=== PATIENT | female | born 1975 | race Two or more races ===

== ENCOUNTER → 2020-03-01 16:07 | Outpatient (BNVA) | payer MEDICARE, MEDICAID, SELFPAY | PROVIDERS: PCP Physician Assistant Medical; Referring Provider Physician Assistant Medical; Visit Provider Student in an Organized Health Care Education/Training Program | DX: Z13.89 Encounter for screening for other disorder (principal) | CPT/HCPCS: Q3014 ==

== ENCOUNTER 2020-04-19 11:26 | Outpatient (REF) | payer MEDICARE, MEDICAID, SELFPAY ==
[2020-04-19 12:58] LABS: MANUAL DIFF FLAG NO
[2020-04-19 13:02] LABS: Basophils Percent Auto 0.1 % (0-2); Eosinophils Absolute Auto 0.1 X10*3/uL (0.0-0.4); Eosinophils Percent Auto 1.7 % (0-4); Hematocrit 38.6 % (37-47); Hemoglobin 12.4 g/dl (12.0-16.0); Imm Gran Abs Auto 0.02 X10*3/uL (0.00-0.03); Imm Gran Pct Auto 0.3 % (0.0-0.4); Lymphocytes Absolute Auto 1.8 X10*3/uL (1.2-4.9); Lymphocytes Percent Auto 25.7 % (20-40); Mean Corpuscular HGB Conc 32.1 g/dl (31.0-35.0); Mean Corpuscular Hemoglobin 27.2 pg (27.0-33.0); Mean Corpuscular Volume 84.6 fL (80-98); Mean Platelet Volume 12.3 fL (9.4-12.3); Monocytes Absolute Auto 0.6 X10*3/uL (0.1-1.2); Monocytes Percent Auto 7.8 % (2-11); Neutrophils Absolute Auto 4.5 X10*3/uL (2.0-8.3); Neutrophils Percent Auto 64.4 % (45-73); Platelet Count 229 X10*3/uL (160-400); Red Blood Count 4.56 X10*6/uL (4.20-5.50); White Blood Count 7.1 X10*3/uL (4.8-10.8)
[2020-04-19 13:32] LABS: Alanine Aminotransferase 28 U/L (0-31); Albumin Level 4.5 g/dL (3.5-5.0); Alkaline Phosphatase 92 U/L (39-117); Anion Gap 14 (12-20); Aspartate Amino Transferase 22 U/L (5-31); Bilirubin Total 0.4 mg/dL (0.0-1.0); Blood Urea Nitrogen 10 mg/dL (9-16); Calcium 9.5 mg/dL (8.4-10.2); Carbon Dioxide 24 mmol/L (22-29); Chloride 105 mmol/L (96-108); Cholesterol 203 mg/dL; Estimated Glomerular Filt Rate > 60; Glucose Fasting 86 mg/dL (60-99); HDL Cholesterol 54 mg/dL; LDL Cholesterol Calculated 106 mg/dl; Potassium 4.5 mmol/L (3.3-5.1); Sodium 138 mmol/L (135-145); Total Protein 7.4 g/dL (6.5-8.0); Triglycerides 217 mg/dL
[2020-04-19 13:54] LABS: TSH reflex Free T4 0.99 uIU/mL (0.32-4.0)
[2020-04-23 13:17] LABS: Vitamin D 25-OH, D2 <4 ng/mL; Vitamin D 25-OH, D3 33 ng/mL; Vitamin D 25-OH, Total 33 ng/mL (30-100)
== END 2020-04-19 11:27 | disposition home or self-care (01) ==
LOC: HO.LAB 11:26
PROVIDERS: PCP Internal Medicine; Visit Provider Internal Medicine
DX: E66.9 Obesity, unspecified (principal); E78.5 Hyperlipidemia, unspecified; E55.9 Vitamin D deficiency, unspecified
CPT/HCPCS: 36415; 80053; 80061; 82306; 84443; 85025

== ENCOUNTER 2020-04-26 09:53 | Outpatient (REF) | payer MEDICARE, MEDICAID, SELFPAY ==
--- NOTE | 2020-04-26 09:45 | EMG_ITS ---
HISTORY OF PRESENT ILLNESS: This is a 44-year-old woman with history of bilateral hand pain, right greater than left for many years. CURRENT MEDICATIONS: Diclofenac, montelukast for asthma, and gabapentin. PHYSICAL EXAMINATION: On examination, she is alert and oriented with normal intellectual functions. Cranial nerves II through XII are normal. Muscle tone and strength are normal in all 4 extremities. Deep tendon reflexes symmetrical. Plantar responses are flexor. No Tinel or Phalen sign. IMPRESSION: Rule out carpal tunnel syndrome. Nerve conduction EMG study: Normal electrodiagnostic study of both upper extremities with no evidence of nerve entrapment or carpal tunnel syndrome. Normal EMG of the right C5 through T1 innervated muscles. MD SOLANGE Krueger/MARY / [id number]
== END 2020-04-26 09:54 | disposition home or self-care (01) ==
LOC: HO.NEURO 09:53
PROVIDERS: Visit Provider Student in an Organized Health Care Education/Training Program
DX: G56.03 Carpal tunnel syndrome, bilateral upper limbs (principal)
CPT/HCPCS: 95885; 95913

== ENCOUNTER → 2020-08-29 15:02 | Outpatient (BNVA) | payer MEDICARE, MEDICAID, SELFPAY | PROVIDERS: PCP Physician Assistant Medical; Visit Provider Student in an Organized Health Care Education/Training Program | DX: M19.041 Primary osteoarthritis, right hand (principal); M19.042 Primary osteoarthritis, left hand; G56.03 Carpal tunnel syndrome, bilateral upper limbs; M79.7 Fibromyalgia; Z87.891 Personal history of nicotine dependence; Z79.899 Other long term (current) drug therapy | CPT/HCPCS: 99212 ==

== ENCOUNTER 2020-10-05 09:00 | Outpatient (RCR) | payer MEDICARE, MEDICAID, SELFPAY ==
--- NOTE | 2020-09-07 15:54 | MHC.OT.OEV ---
[address] [phone] F: [phone] Occupational Therapy Evaluation Diagnosis: B/L HAND OSTEOARTHRTIS Date of Onset: 02/25/12 Attending Provider: Arlet Groves Prescribed Treatment: EVAL AND TREAT History of Current Condition: REPORTS PAIN IN HER RIGHT CMC JOINT, WELL HER LEFT D2/D3 DIP JOINTS. SHE STATES THAT BOTH HANDS BECOME SWOLLEN AT NIGHT AND INCREASED PARASTHESIA IN THE MORNING. Nerve conduction study of bilateral upper extremities were unremarkable. 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 Sleep: INCONSISTENTLY WEARING NIGHT SPLINTS AT NIGHT, SEVERE DIFFICULTIES DUE TO HAND PAIN Driving: PAIN WITH TURNING WHEEL, INCONSISTENTLY WEARING SPLINTS WHEN AT WORK Pain Assessment Pain Score: 3-8/10 Pain Scale Used: Numeric (0 - 10) Pain Location and Description: 8/10 R CMC AT REST, 10/10 WITH ACTIVITY 3/10 L D2/D3 DIPj AT REST, 8/10 PALPATION TO DIPj Aggravating Factors: GRIPPING, SQUEEZING Alleviating Factors: GABAPENTON, HAS NOT USED HEAT/ICE, SPLINTS OCCASIONALLY HELP, DICOFLENAC Skin and Soft Tissue Assessment Skin and Soft Tissue: Swelling Comments: HEBERDEN'S NODES L D2/D3; HYPEREXTENSION OF PIPj OF L D3/D4, SWAN NECK POSTURING OF L D2/D3 ARTIFICIAL NAILS Sensory Assessment Temperature: Light Touch: Proprioception: Vibration: Comments: REPORTS NUMBNESS, PINS AND NEEDLES THROUGH WHOLE HAND AND RADIAL FOREARM DISTRIBUTION Dexterity Assessment Dexterity: Comments: FUNCTIONAL DEXTERITY TEST: RIGHT: 24 SECONDS (FUNCTIONAL) ; LEFT: 30 SECONDS (MODERATELY FUNCTIONAL) Special Tests Comments: AROM(PROM) Strength Wrist Flexion: R 58, L 60 Extension: R 60, L 72 Ulnar Deviation: Radial Deviation: Comments: Flexion: Extension: Ulnar Deviation: Radial Deviation: Comments: Thumb Thumb CMC Flexion: Thumb MCP Flexion: R 60, L 82 Thumb IP Flexion: R 50, L 42 Radial Abduction: Palmar Abduction: [place] (K[place]andji 0-10): 9 Comments: Digits Index MCP: PIP: L 94, R 89 DIP: L 2/20 Long MCP: PIP: L 84, R 84 DIP: L 4/26 Ring MCP: PIP: L 82, R 90 DIP: Small MCP: PIP: DIP: Comments: heberden's nodes D2/D3 L HAND Gross Grasp: R 20, L 28 POUNDS Lateral Pinch: L 8, R 9 Two-Point Pinch: L 3, R 4 Three-Jaw Leland: L 4, R 4 Comments: PAIN IN R THUMB WITH GRIPPING Patient Education Primary Language: Ict Educator Required: No Current Knowledge: Understands information with skills for self-management Teaching Method: Demonstration Handouts Education Needs Identified on Evaluation: ADL's Disease Information Equipment Use Exercise Pain Safety How did patient/family demonstrate learning? Patient demonstrates Patient verbalizes Barriers to Learning: None Readiness for Learning: Accepting Who was educated? Patient Comments: Plan of Care Assessment: MARCI REPORTS DX OF OSTEOARTHRITIS IN 2013. HAS PREVIOUSLY ATTENDED OUTPATIENT OT, MOST RECENTLY IN 2018. SHE HAS B/L HAND SPLINTS THAT SHE OCCASIONALLY WEARS AT NIGHT AND AT WORK. SHE STATES HER PAIN IS GREATEST IN HER RIGHT CMC JOINT, AND LEFT D2/D3 DIPj. 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 SHE REPORTS SOME ASSIST AT HOME WITH OPENING TIGHT JARS AND IADLs, YET WOULD LIKE TO HAVE LESS PAIN WHEN PARTICIPATING IN MEANINGFUL TASKS. SHE REPORTS A 83% LIMITATION PER THE QUICK DASH ASSESSMENT. ONGOING SKILLED OT TO PROVIDE PATIENT EDUCATION, JOINT PROTECTION STRATEGIES, AND IMPROVE QOL. STG Duration: 2 WEEKS Short Term Goals: IND USE OF HEAT, INCLUDING HOME PARAFFIN UNIT IND HEP WILL DEMO GOOD JOINT PROTECTION WITH HOME AND WORK RELATED TASKS IND COMPLIANCE WITH ORTHOSIS' LTG Duration: 4 WEEKS Photo Graphics Librarian Goals: INCREASE B/L HAND STRENGTH BY 10 POUNDS IND POSTURING OF DIGITS APPROPRIATELY DURING DAILY ACTIVITIES REPORT <6/10 PAIN IN R THUMB WITH IADLs IND PROGRESSION OF HEP QUICK DASH <70% Frequency and Duration: The patient will be seen 2X/WEEK FOR 4 WEEKS Treatment Plan: Therapeutic Exercise Therapeutic Activity Home Exercise Program Splinting Neuro Re-ed Patient Education Desensitization/Sensory Re-ed Edema Control ADL Training Ultrasound NMES Iontophoresis Paraffin Fluidotherapy MHP Cold Packs Joint Mobilization Soft Tissue Mobilization Kinesiotaping Other (see comments) Electronically Signed By: LEFTY CORONA OTR/L Reviewed/agree with student documentation: N/A Therapist: Please sign and return to therapist, Thank you for your referral.
--- NOTE | 2020-10-05 11:04 | MHC.OT.DC ---
[address] [phone] F: [phone] Occupational Therapy Discharge Note Provider: Arlet Groves Diagnosis: B/L HAND OSTEOARTHRTIS Date of Evaluation: 09/07/20 Date of Discharge: 10/05/20 Treatments to Date: 7 Discharge Status: Achieved Goals Improved Function Independent with HEP Discharge Summary: Amelie was seen for OT eval and treatments. She demonstrated good follow through w/ HEP, orthosis wear and joint protection. Low pain overall and able to self manage at this time. No further OT services warranted at this time. Electronically Signed By: LEFTY CORONA OTR/Chau Reviewed/agree with student documentation: N/A Therapist: Please Sign and return to therapist, thank you for your referral.
== END 2020-10-05 11:00 | disposition home or self-care (01) ==
LOC: HO.OT 09:00
PROVIDERS: PCP Internal Medicine; Visit Provider Student in an Organized Health Care Education/Training Program
DX: M19.041 Primary osteoarthritis, right hand (principal); M19.042 Primary osteoarthritis, left hand
CPT/HCPCS: 29130; 97018; 97035; 97110; 97166; 97760

== ENCOUNTER 2020-11-20 11:32 | Outpatient (REF) | payer MEDICARE, MEDICAID, SELFPAY ==
[2020-11-20 15:44] LABS: MANUAL DIFF FLAG NO
[2020-11-20 16:01] LABS: Basophils Percent Auto 0.3 % (0-2); Eosinophils Absolute Auto 0.2 X10*3/uL (0.0-0.4); Eosinophils Percent Auto 1.9 % (0-4); Hematocrit 37.2 % (37-47); Hemoglobin 12.3 g/dl (12.0-16.0); Imm Gran Abs Auto 0.05 X10*3/uL (0.00-0.03); Imm Gran Pct Auto 0.6 % (0.0-0.4); Lymphocytes Percent Auto 21.9 % (20-40); Mean Corpuscular HGB Conc 33.1 g/dl (31.0-35.0); Mean Corpuscular Hemoglobin 29.1 pg (27.0-33.0); Mean Corpuscular Volume 87.9 fL (80-98); Mean Platelet Volume 11.9 fL (9.4-12.3); Monocytes Absolute Auto 0.7 X10*3/uL (0.1-1.2); Neutrophils Percent Auto 67.3 % (45-73); Platelet Count 235 X10*3/uL (160-400); Red Blood Count 4.23 X10*6/uL (4.20-5.50); Red Cell Distribution Width 14.1 % (11.0-16.0); White Blood Count 8.9 X10*3/uL (4.8-10.8)
== END 2020-11-20 11:33 | disposition home or self-care (01) ==
LOC: CF 11:32
PROVIDERS: PCP Internal Medicine; Referring Provider Internal Medicine; Visit Provider Physician Assistant
DX: R10.9 Unspecified abdominal pain (principal); K57.30 Diverticulosis of large intestine without perforation or abscess without bleeding
CPT/HCPCS: 36415; 85025; 99202

== ENCOUNTER 2020-12-21 09:54 | Outpatient (REF) | payer MEDICARE, MEDICAID, SELFPAY ==
--- NOTE | ~2020-12-21 | XR_ITS ---
EXAMINATION: XR HAND, RIGHT CLINICAL INFORMATION: Primary osteoarthritis of the right hand COMPARISON: None TECHNIQUE: PA, lateral, and oblique views of the right hand. FINDINGS: No fracture or dislocation. Alignment is anatomic. There is joint space narrowing at the second and third digit distal interphalangeal joints. Marginal osteophytes are scattered throughout the interphalangeal joints. No osseous erosion. Degenerative change of the first carpometacarpal joint with osteophyte formation. The soft tissues are unremarkable. XR/XR hand RT min 3V IMPRESSION: Degenerative changes throughout the hand which are mostly mild. Moderate degenerative change at the third distal interphalangeal joint with joint space narrowing.
== END 2020-12-21 09:55 | disposition home or self-care (01) ==
LOC: HO.XRAY 09:54
PROVIDERS: PCP Internal Medicine; Visit Provider Nurse Practitioner Family
DX: M19.041 Primary osteoarthritis, right hand (principal); M19.042 Primary osteoarthritis, left hand
CPT/HCPCS: 73130; 99212

== ENCOUNTER 2021-02-25 07:47 | Outpatient (REF) | payer MEDICARE, MEDICAID, SELFPAY ==
[2021-02-25 08:47] LABS: Binax Internal Control QC Valid; Binax Now Covid-19 Ag Positive (Negative)
[2021-02-25 08:48] LABS: Binax Lot number: 9864
== END 2021-02-25 07:48 | disposition home or self-care (01) ==
LOC: HO.LAB 07:47
PROVIDERS: PCP Internal Medicine; Visit Provider Internal Medicine
DX: Z20.822 Contact with and (suspected) exposure to COVID-19 (principal)
CPT/HCPCS: 36415; C9803

== ENCOUNTER → 2021-04-12 11:24 | Outpatient (BNVA) | payer MEDICARE, MEDICAID, SELFPAY | PROVIDERS: PCP Internal Medicine; Referring Provider Internal Medicine; Visit Provider Physician Assistant | DX: K92.89 Other specified diseases of the digestive system (principal); R10.9 Unspecified abdominal pain | CPT/HCPCS: 99212 ==

== ENCOUNTER 2021-05-22 12:16 | Outpatient (REF) | payer MEDICARE, MEDICAID, SELFPAY ==
[2021-05-22 13:49] LABS: Alanine Aminotransferase 23 U/L (0-31); Albumin Level 4.2 g/dL (3.5-5.0); Alkaline Phosphatase 87 U/L (39-117); Anion Gap 12 (12-20); Aspartate Amino Transferase 18 U/L (5-31); Bilirubin Total 0.4 mg/dL (0.0-1.0); Blood Urea Nitrogen 15 mg/dL (9-16); Calcium 9.7 mg/dL (8.4-10.2); Carbon Dioxide 26 mmol/L (22-29); Chloride 105 mmol/L (96-108); Cholesterol 197 mg/dL; Estimated Glomerular Filt Rate > 60; Glucose Fasting 87 mg/dL (60-99); HDL Cholesterol 46 mg/dL; LDL Cholesterol Calculated 89 mg/dl; Potassium 4.4 mmol/L (3.3-5.1); Sodium 139 mmol/L (135-145); Total Protein 7.1 g/dL (6.5-8.0); Triglycerides 314 mg/dL
[2021-05-22 14:02] LABS: Appearance Urine CLEAR; Color Urine YELLOW; Glucose Urine UA NEG (NEG); Leukocyte Esterase Urine NEG (NEG); Nitrite Urine NEG (NEG); Specific Gravity - Urine 1.015 (1.005-1.025); UACC Culture Trigger NO; Urine Blood 3+ (NEG); Urine Ketones NEG (NEG); Urine Protein NEG (NEG-TRACE)
[2021-05-22 14:10] LABS: Bacteria Urine TRACE /LPF; Squamous Epithelial Cell Urine 3+ /LPF; WBC Urine 0-2 /HPF (0-4)
[2021-05-27 12:51] LABS: Vitamin D 25-OH, D2 <4 ng/mL; Vitamin D 25-OH, D3 32 ng/mL; Vitamin D 25-OH, Total 32 ng/mL (30-100)
== END 2021-05-22 12:17 | disposition home or self-care (01) ==
LOC: HO.LAB 12:16
PROVIDERS: PCP Internal Medicine; Visit Provider Internal Medicine
DX: M19.041 Primary osteoarthritis, right hand (principal); M19.042 Primary osteoarthritis, left hand; E78.5 Hyperlipidemia, unspecified; R30.0 Dysuria; E55.9 Vitamin D deficiency, unspecified
CPT/HCPCS: 36415; 80053; 80061; 81001; 81003; 82306

== ENCOUNTER 2021-06-14 10:35 | Outpatient (REF) | payer MEDICARE, MEDICAID, SELFPAY ==
--- NOTE | ~2021-06-14 | US_ITS ---
EXAMINATION: US RETROPERITONEAL LIMITED (RENAL ONLY) CLINICAL INFORMATION: Calculus of kidney. COMPARISON: None TECHNIQUE: Real-time imaging of the kidneys. FINDINGS: RIGHT KIDNEY: 11.9 x 5.4 x 4.0 cm (SAG x AP x TRV). The kidney is normal in size, contour, and echogenicity. Renal cortical thickness is normal. No focal parenchymal lesions or hydronephrosis. There is a 0.3 x 0.2 cm echogenic focus without any acoustic shadowing present at the mid pole, may represent calcification versus nonobstructing subtle calculus. LEFT KIDNEY: 13.3 x 5.3 x 4.1 cm (SAG x AP x TRV). The kidney is normal in size, contour, and echogenicity. Renal cortical thickness is normal. No focal parenchymal lesions or hydronephrosis. The 0.2 x 0.1 cm echogenic focus without acoustic shadowing is noted at the mid pole, may represent calcification versus nonobstructing calculus. US/US renal BI IMPRESSION: 1. Bilateral normal-sized kidneys without evidence of any hydronephrosis. 2. Sub-5 mm echogenic focus without acoustic shadowing is noted, one on each side near the mid pole, as described above, may represent calcification versus nonobstructing solitary calculus.
== END 2021-06-14 10:36 | disposition home or self-care (01) ==
LOC: HO.US 10:35
PROVIDERS: Visit Provider Internal Medicine
DX: N20.0 Calculus of kidney (principal)
CPT/HCPCS: 76775

== ENCOUNTER → 2021-07-06 10:56 | Outpatient (BNVA) | payer MEDICARE, MEDICAID, SELFPAY | PROVIDERS: PCP Internal Medicine | DX: N20.0 Calculus of kidney (principal) | CPT/HCPCS: 99202 ==

== ENCOUNTER 2021-11-06 09:43 | Outpatient (REF) | payer MEDICARE, MEDICAID, SELFPAY ==
--- NOTE | ~2021-11-06 | US_ITS ---
EXAMINATION: US RETROPERITONEAL LIMITED (RENAL ONLY) CLINICAL INFORMATION: Calculus of kidney. COMPARISON: Renal ultrasound 06/14/2021. TECHNIQUE: Real-time imaging of the kidneys. FINDINGS: RIGHT KIDNEY: 11.8 x 4.7 x 4.5 cm (SAG x AP x TRV). The kidney is normal in size, contour, and echogenicity. Renal cortical thickness is normal. No calculi or focal parenchymal lesions. No hydronephrosis. LEFT KIDNEY: 13.0 x 5.0 x 4.2 cm (SAG x AP x TRV). The kidney is normal in size, contour, and echogenicity. Renal cortical thickness is normal. There is a 2 mm echogenic density in the midpole with twinkle artifact suggestive of a small stone. No focal parenchymal lesions or hydronephrosis. US/US renal BI IMPRESSION: Small left renal stone. Normal right kidney.
== END 2021-11-06 09:44 | disposition home or self-care (01) ==
LOC: HO.US 09:43
DX: N20.0 Calculus of kidney (principal)
CPT/HCPCS: 76775

== ENCOUNTER 2021-11-20 12:00 | Outpatient (REF) | payer MEDICARE, MEDICAID, SELFPAY ==
[2021-11-20 14:39] LABS: C Reactive Protein 0.41 mg/dL (< or = 0.50); Rheumatoid Factor < 15.0 IU/mL (<15.0)
[2021-11-20 15:12] LABS: Erythrocyte Sedimentation Rate 7 MM/HR (0-20)
[2021-11-23 17:57] LABS: Cyclic Citrullinated Peptide <16 UNITS
== END 2021-11-20 12:01 | disposition home or self-care (01) ==
LOC: HO.10HDL 12:00
PROVIDERS: Visit Provider Nurse Practitioner Family
DX: M19.041 Primary osteoarthritis, right hand (principal); M19.042 Primary osteoarthritis, left hand; M79.18 Myalgia, other site
CPT/HCPCS: 36415; 85652; 86140; 86200; 86431; 99212

== ENCOUNTER 2021-11-21 11:15 | Outpatient (REF) | payer MEDICARE, MEDICAID, SELFPAY ==
--- NOTE | ~2021-11-21 | XR_ITS ---
EXAMINATION: XR SACROILIAC JOINTS CLINICAL INFORMATION: Left buttock pain COMPARISON: 03/02/2015 TECHNIQUE: 3 views of the sacroiliac joints FINDINGS: No fracture or malalignment. The sacroiliac joints are symmetric. Symmetric spacing. No fusion. No sclerosis. The sacrum appears intact. Normal bowel gas pattern. The hips are well aligned. XR/XR sacroiliac joint min 3V IMPRESSION: Normal sacroiliac joints.
--- NOTE | ~2021-11-21 | XR_ITS ---
EXAMINATION: XR HAND, LEFT XR HAND, RIGHT CLINICAL INFORMATION: Hand pain COMPARISON: 12/21/2020 TECHNIQUE: 3 views of each hand FINDINGS: Left hand: No acute fracture or dislocation. Narrowing of the joint space at the second and third digit distal interphalangeal joints. Gull wing appearance with erosion at the third distal interphalangeal joint. Mild soft tissue swelling at these joints. Right hand: No fracture or dislocation. Joint space narrowing with: Gull wing appearance at the third digit distal interphalangeal joint, progressed from prior. Mild soft tissue swelling. XR/XR hand RT min 3V IMPRESSION: Findings suggestive of erosive osteoarthritis in the left hand at the second and third digit distal interphalangeal joints and in the right hand third digit distal interphalangeal joint.
--- NOTE | ~2021-11-21 | XR_ITS ---
EXAMINATION: XR HAND, LEFT XR HAND, RIGHT CLINICAL INFORMATION: Hand pain COMPARISON: 12/21/2020 TECHNIQUE: 3 views of each hand FINDINGS: Left hand: No acute fracture or dislocation. Narrowing of the joint space at the second and third digit distal interphalangeal joints. Gull wing appearance with erosion at the third distal interphalangeal joint. Mild soft tissue swelling at these joints. Right hand: No fracture or dislocation. Joint space narrowing with: Gull wing appearance at the third digit distal interphalangeal joint, progressed from prior. Mild soft tissue swelling. XR/XR hand LT min 3V IMPRESSION: Findings suggestive of erosive osteoarthritis in the left hand at the second and third digit distal interphalangeal joints and in the right hand third digit distal interphalangeal joint.
== END 2021-11-21 11:16 | disposition home or self-care (01) ==
LOC: HO.XRAY 11:15
PROVIDERS: PCP Internal Medicine; Visit Provider Nurse Practitioner Family
DX: M79.641 Pain in right hand (principal); M79.642 Pain in left hand; M79.18 Myalgia, other site
CPT/HCPCS: 72202; 73130

== ENCOUNTER → 2022-02-21 11:47 | Outpatient (BNVA) | payer MEDICARE, MEDICAID, SELFPAY | PROVIDERS: PCP Internal Medicine; Visit Provider Nurse Practitioner Family | DX: M79.18 Myalgia, other site (principal); M15.4 Erosive (osteo)arthritis | CPT/HCPCS: 99212 ==

== ENCOUNTER 2022-04-03 10:00 | Outpatient (RCR) | payer MEDICARE, MEDICAID, SELFPAY ==
--- NOTE | 2022-04-03 10:58 | MHC.OT.DC ---
[address] [phone] F: [phone] Occupational Therapy Discharge Note Provider: Tejal Roman Diagnosis: Erosive Osteoarthritis bilateral hands Date of Surgery: Date of Evaluation: 03/18/22 Date of Discharge: 04/03/22 Treatments to Date: 5 Cancellations to Date: 0 No Shows to Date: 0 Discharge Status: Achieved Goals Improved Function Independent with HEP Discharge Summary: Good improvement in pain on left hand and in right DIP jts. Pt with continued pain at right CMC jt > left , both improved with wearing custom hand based CMCj orthosis Pt is independent with her HEP and is improving on implementing jt protection techniques with daily activities. Polo reports using her night splint for CTS sx Supervisor Corduroy Cutting R 20 lb from 15 lb L 30 lb Quick DASH 50 pts from 90 pts . Right CMCjt pain limiting heavy work with right hand. Shoulder pain limiting washing her back. Report night hand paresthesia. Electronically Signed By: Breonna Madison OT CHT CLT Reviewed/agree with student documentation: Therapist: Please Sign and return to therapist, thank you for your referral.
== END 2022-04-03 10:59 | disposition home or self-care (01) ==
LOC: HO.OT 10:00
PROVIDERS: PCP Internal Medicine; Visit Provider Nurse Practitioner Family
DX: M15.4 Erosive (osteo)arthritis (principal)
CPT/HCPCS: 29130; 97035; 97110; 97166; 97535; 97760

== ENCOUNTER 2022-04-29 09:45 | Outpatient (REF) | payer MEDICARE, MEDICAID, SELFPAY ==
[2022-04-29 11:05] LABS: MANUAL DIFF FLAG NO
[2022-04-29 12:06] LABS: Basophils Percent Auto 0.3 % (0-2); Eosinophils Absolute Auto 0.3 X10*3/uL (0.0-0.4); Eosinophils Percent Auto 2.5 % (0-4); Hemoglobin 13.4 g/dl (12.0-16.0); Imm Gran Abs Auto 0.11 X10*3/uL (0.00-0.03); Imm Gran Pct Auto 1.1 % (0.0-0.4); Lymphocytes Absolute Auto 2.3 X10*3/uL (1.2-4.9); Lymphocytes Percent Auto 23.4 % (20-40); Mean Corpuscular HGB Conc 33.5 g/dl (31.0-35.0); Mean Corpuscular Hemoglobin 29.9 pg (27.0-33.0); Mean Corpuscular Volume 89.3 fL (80.0-98.0); Mean Platelet Volume 11.6 fL (9.4-12.3); Monocytes Absolute Auto 0.7 X10*3/uL (0.1-1.2); Monocytes Percent Auto 6.8 % (2-11); Neutrophils Absolute Auto 6.5 x10*3/uL (2.0-8.3); Neutrophils Percent Auto 65.9 % (45-73); Platelet Count 256 X10*3/uL (160-400); Red Blood Count 4.48 X10*6/uL (4.20-5.50); Red Cell Distribution Width 13.2 % (11.0-16.0); White Blood Count 9.9 X10*3/uL (4.8-10.8)
== END 2022-04-29 09:46 | disposition home or self-care (01) ==
LOC: HO.LAB 09:45
PROVIDERS: PCP Internal Medicine; Referring Provider Internal Medicine; Visit Provider Physician Assistant
DX: K52.9 Noninfective gastroenteritis and colitis, unspecified (principal); K57.30 Diverticulosis of large intestine without perforation or abscess without bleeding; R10.9 Unspecified abdominal pain; G89.29 Other chronic pain; Z79.899 Other long term (current) drug therapy
CPT/HCPCS: 36415; 85025; 99212

== ENCOUNTER 2022-06-12 11:00 | Outpatient (RCR) | payer MEDICARE, MEDICAID, SELFPAY ==
--- NOTE | 2022-05-01 12:05 | MHC.PT.EP ---
[facility] [place] Office [place] [facility] [place] [facility] [address] Deon Carbajal [address] [phone] F: [phone] F: [phone] F: [phone] F: [phone] Physical Therapy Plan of Care Date of Evaluation: Date of Surgery: N/A Diagnosis: Low back pain, unspecified Assessment: Pt is a pleasant 46yo F who presents to PT with low back pain. She presents to PT with current impairments in pain, decreased lumbar ROM, decrease core stabilization, decreased hip/glute strength, soft tissue restrictions and impaired posture. 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 She is an excellent candidate for skilled PT in order to address current impairments to facilitate return to PLOF. She is recommended to be seen 2x/week for 4 weeks and will be reassessed at that time. 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 Manual therapy to restore motion and function. Therapeutic exercise to improve strength and flexibility. Neuromuscular re-education for posture and balance. Therapeutic activities to return to functional activities of daily living. Electronically signed by: Meryl Reynolds, PT, DPT Please sign and return to therapist. Thank you for your referral.
--- NOTE | 2022-06-12 13:43 | MHC.PT.DC ---
[facility] [place] Office [place] [facility] [place] [facility] [address] Deon Carbajal [address] [phone] F: [phone] F: [phone] F: [phone] F: [phone] Physical Therapy Discharge Report Diagnosis: Low back pain, unspecified Date of Surgery: N/A Date of Evaluation: 05/01/22 Date of Discharge: 06/12/22 Treatments to Date: 10 Cancellations to Date: 0 No Shows to Date: 0 Discharge Status: Achieved Goals Improved Function Independent with HEP Discharge Summary: Pt has made good progress since SOC. She has met her STGs and made good progress toward her LTGs. She consistently has minimal to no discomfort throughout her back. She is I with HEP and performs with good body mechanics. Pt is being D/C from skilled PT at this time. She has printed copy of HEP and thera bands. Pt reports no further questions or concerns for PT at this time. Electronically signed by: Meryl Reynolds, PT, DPT Please sign and return to therapist. Thank you for your referral.
== END 2022-06-12 13:46 | disposition home or self-care (01) ==
LOC: HO.PT 11:00
PROVIDERS: PCP Internal Medicine; Visit Provider Nurse Practitioner Family
DX: M54.50 Low back pain, unspecified (principal)
CPT/HCPCS: 97110; 97161

== ENCOUNTER 2022-06-29 09:51 | Outpatient (REF) | payer MEDICARE, MEDICAID, SELFPAY ==
[2022-06-29 10:03] LABS: MANUAL DIFF FLAG NO
[2022-06-29 10:31] LABS: Basophils Absolute Auto 0.1 X10*3/uL (0.0-0.2); Basophils Percent Auto 0.5 % (0-2); Eosinophils Absolute Auto 0.4 X10*3/uL (0.0-0.4); Eosinophils Percent Auto 3.5 % (0-4); Hematocrit 41.7 % (37.0-47.0); Imm Gran Abs Auto 0.06 X10*3/uL (0.00-0.03); Imm Gran Pct Auto 0.6 % (0.0-0.4); Lymphocytes Absolute Auto 1.7 X10*3/uL (1.2-4.9); Lymphocytes Percent Auto 16.5 % (20-40); Mean Corpuscular HGB Conc 33.6 g/dl (31.0-35.0); Mean Corpuscular Hemoglobin 30.2 pg (27.0-33.0); Mean Corpuscular Volume 90.1 fL (80.0-98.0); Mean Platelet Volume 11.7 fL (9.4-12.3); Monocytes Absolute Auto 0.8 X10*3/uL (0.1-1.2); Monocytes Percent Auto 7.6 % (2-11); Neutrophils Absolute Auto 7.5 x10*3/uL (2.0-8.3); Neutrophils Percent Auto 71.3 % (45-73); Platelet Count 234 X10*3/uL (160-400); Red Blood Count 4.63 X10*6/uL (4.20-5.50); Red Cell Distribution Width 13.5 % (11.0-16.0); White Blood Count 10.5 X10*3/uL (4.8-10.8)
[2022-06-29 11:12] LABS: Alanine Aminotransferase 22 U/L (0-31); Albumin Level 4.1 g/dL (3.5-5.0); Alkaline Phosphatase 83 U/L (39-117); Anion Gap 14 (12-20); Aspartate Amino Transferase 20 U/L (5-31); Bilirubin Total 0.7 mg/dL (0.0-1.0); Blood Urea Nitrogen 10 mg/dL (9-16); Calcium 9.6 mg/dL (8.4-10.2); Carbon Dioxide 23 mmol/L (22-29); Chloride 108 mmol/L (96-108); Cholesterol 191 mg/dL; Estimated Glomerular Filt Rate > 60; Glucose Fasting 92 mg/dL (60-99); HDL Cholesterol 50 mg/dL; Iron 87 mcg/dL (30-160); LDL Cholesterol Calculated 100 mg/dl; Percent Iron Saturation 27 % (15-50); Potassium 4.5 mmol/L (3.3-5.1); Sodium 140 mmol/L (135-145); Total Iron Binding Capacity 321 mcg/dL (228-428); Total Protein 6.9 g/dL (6.5-8.0); Triglycerides 207 mg/dL; Unsaturated Iron Binding 234 ug/dL
== END 2022-06-29 09:52 | disposition home or self-care (01) ==
LOC: HO.LAB 09:51
PROVIDERS: PCP Internal Medicine; Visit Provider Internal Medicine
DX: Z00.00 Encounter for general adult medical examination without abnormal findings (principal); D64.9 Anemia, unspecified; E78.5 Hyperlipidemia, unspecified
CPT/HCPCS: 36415; 80053; 80061; 83540; 85025

== ENCOUNTER → 2022-07-18 11:16 | Outpatient (BNVA) | payer MEDICARE, MEDICAID, SELFPAY | PROVIDERS: PCP Internal Medicine; Visit Provider Nurse Practitioner Family | DX: M15.4 Erosive (osteo)arthritis (principal) | CPT/HCPCS: 99212 ==

== ENCOUNTER 2022-07-23 11:01 | Outpatient (REF) | payer MEDICARE, MEDICAID, SELFPAY ==
[2022-07-23 12:58] LABS: Folate 16.2 ng/mL (> or = 4.0); Thyroid Stimulating Hormone 1.17 uIU/mL (0.32-4.0); Vitamin B12 467 pg/mL (200-900); Vitamin D 25-OH Total 31.9 ng/mL (>30)
== END 2022-07-23 11:02 | disposition home or self-care (01) ==
LOC: HO.LAB 11:01
PROVIDERS: PCP Internal Medicine; Visit Provider Internal Medicine
DX: E55.9 Vitamin D deficiency, unspecified (principal); E53.8 Deficiency of other specified B group vitamins; E66.9 Obesity, unspecified
CPT/HCPCS: 36415; 82306; 82607; 82746; 84443

== ENCOUNTER 2022-10-22 12:03 | Day surgery (SDC) | payer MEDICARE, MEDICAID, SELFPAY ==
[2022-10-18 14:37] VITALS: BMI 32.7
--- NOTE | 2022-10-21 11:47 | HO.ANESPROP2 ---
Documented by User: eMg Velazco NP 10/21/22 11:47 HPI - Anesthesia Eval Consult details Narrative: 46yo F for Colonoscopy PMFSH Active Problems Active Problems: All Active Problems (Updated 07/23/22 @ 11:07 by Shelia Peerz MD) Allergic rhinitis (Acute) Chronic abdominal pain (Acute) Erosive osteoarthritis of both hands (Acute) Dry eyes (Acute) Physical exam (Acute) GERD (gastroesophageal reflux disease) (Acute) Renal calculi (Acute) Hearing loss, bilateral (Acute) Medicare annual wellness visit, initial (Acute) Gas bloat syndrome (Acute) Diverticulosis of colon (Acute) Abdominal pain (Acute) Asthma (Acute) Fibromyalgia (Acute) Acute sinusitis (Acute) Hearing loss (Acute) Obese (Acute) Bilateral carpal tunnel syndrome (Acute) Past Medical History Medical History Abdominal pain Asthma Carpal tunnel syndrome Fibromyalgia GERD (gastroesophageal reflux disease) Hearing loss Hearing loss, bilateral Medicare annual wellness visit, initial Obese Renal calculi Scoliosis Family History Family History Mother HTN (hypertension) Diverticulitis Father Diabetes Surgical History Surgical History History of dilation and curettage History of esophagogastroduodenoscopy (EGD) History of intestinal surgery Hx of appendectomy Hx of section Hx of colonoscopy Social History Social History Housing: Apartment Alcohol intake: current Alcohol intake frequency: does not drink Alcohol type: beer and wine Patient Tobacco Use Status: Former Tobacco user Tobacco use type: Cigarette e-Cigarette/Vaping Use: Never Used Second Hand Smoke Exposure: No service: No Current occupational status: employed 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 Current occupational exposures/hazards: No Cognitive needs: No Hearing needs: No Vision needs: Yes Meds Allergies Allergy/AdvReac Type Severity Reaction Status Date / Time No Known Allergies Allergy Verified 07/23/22 10:51 Home Medications Medication Instructions Recorded Confirmed Last Taken Type albuterol sulfate 90 mcg/actuation 0 mcg inhalation 07/18/22 07/23/22 Unknown History aerosol inhaler Exam Exam Date and Time: October 21, 2022 1147 Height,Weight and Vital Signs: Height 4 ft 8 in Weight 66.224 kg Assessment and Plan Assessment Anesthesia Assessment: Chart Reviewed Documented by User: Tyler Tom MD 10/23/22 02:08 [facility] Past Medical History Medical History Abdominal pain Asthma Carpal tunnel syndrome Fibromyalgia GERD (gastroesophageal reflux disease) Hearing loss Hearing loss, bilateral Medicare annual wellness visit, initial Obese Renal calculi Scoliosis Functional capacity: independent ambulation Family History Family History Mother HTN (hypertension) Diverticulitis Father Diabetes Family history of problems with anesthesia: No Surgical History Surgical History History of dilation and curettage History of esophagogastroduodenoscopy (EGD) History of intestinal surgery Hx of appendectomy Hx of section Hx of colonoscopy History of Problems with Anesthesia: No Social History Social History Housing: Apartment Alcohol intake: current Alcohol intake frequency: does not drink Alcohol type: beer and wine Patient Tobacco Use Status: Former Tobacco user Tobacco use type: Cigarette e-Cigarette/Vaping Use: Never Used Second Hand Smoke Exposure: No service: No Current occupational status: employed 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 Current occupational exposures/hazards: No Cognitive needs: No Hearing needs: No Vision needs: Yes Meds Allergies Allergy/AdvReac Type Severity Reaction Status Date / Time No Known Allergies Allergy Verified 07/23/22 10:51 Home Medications Medication Instructions Recorded Confirmed Last Taken Type albuterol sulfate 90 mcg/actuation 0 mcg inhalation 07/18/22 07/23/22 Unknown History aerosol inhaler Exam Airway Mallampati Class: III Neck ROM: Full Loose/Missing/Broken Teeth: Yes Assessment and Plan Assessment Anesthesia Assessment: Anesthesia Plan Discussed Final Anesthetic Review Family History of Problems with Anesthesia: No History of Problems with Anesthesia: No NPO: Yes ASA Class: II Final Preanesthetic Review: Meds/Allgs Chart Reviewed, Consent Obtained/Reviewed and Anes Risks/Benef Reviewed Patient Risk: Intermediate Procedure Risk: Intermediate Anesthetic Plan Anesthetic Plan: MAC: and Agree w/ Assess. and Plan Disposition: Standard PACU
[2022-10-22 12:42] VITALS: BP 118/69; PULSE 78; RESP 20; TEMP 36.6; O2SAT 96
[2022-10-22 12:44] LABS: UPreg QC Valid YES; Urine Pregnancy NEGATIVE (NEGATIVE)
[2022-10-22] MEDS: Lactated Ringers 1,000 ML 100 ML IVCONT (12:55)
--- NOTE | 2022-10-22 13:24 | P.HPSUR_ITS ---
Pre-Procedural Eval Section A Date of Service: 10/22/22 Section B Chief Complaint: Diverticulosis of large intestine without perforat Relevant Family History (Specify if Yes): No Relevant Social History: None Present Medications: see Short Stay Collaborative assessment Medical History: Significant History (Abdominal pain Asthma Carpal tunnel syndrome Fibromyalgia GERD (gastroesophageal reflux disease) Hearing loss Hearing loss, bilateral Medicare annual wellness visit, initial Obese Renal calculi Scoliosis) History of Previous Operations: Relevant previous surgery/procedure and date(s) (History of dilation and curettage History of esophagogastroduodenoscopy (EGD) History of intestinal surgery Hx of appendectomy Hx of section Hx of colonoscopy) Allergies: Allergies Allergy/AdvReac Type Severity Reaction Status Date / Time No Known Allergies Allergy Verified 07/23/22 10:51 Review of Systems Sugical H&P ROS: Negative: Constitution, Cardiovascular, Respiratory, Neurological, Psychiatric, Hem-Onc, Allergic/Immunologic, Gastrointestinal, Ge nitourinary, Musculoskeletal, Integumentary, Endocrine and Eyes/Ears/Nose/Throat Exam Surgical H&P Exam: Normal: HEENT, Normal: Heart, Normal: Lungs, Normal: Extremities, Normal: Abdomen, Normal: Skin and Normal: Neurological Plan Diagnosis/Plan: Unchanged I have reviewed the history and physical and performed a pertinent physical examination on my patient. No changes have occurred unless specified. Time Spent With Patient Time: Total time managing care of this patient today ____ minutes.
--- NOTE | 2022-10-22 13:30 | W.PM.OPN ---
Operative Note Operative Note Date of Service: 10/22/22 Narrative: Operative Information Procedure Description: Colonoscopy Indication: hx of diverticulosis and abdominal pain in the past Anesthesia: MAC COLONOSCOPY Instrument: Olympus variable stiffness pediatric scope 190L Colonoscopy Monitoring: Vital signs and clinical assessment, continuous EKG monitoring, Pulse oximetry, Carbon Dioxide monitoring and blood pressure monitoring were done throughout the procedure. Colon withdrawal time was 14 minutes. Procedure: The patient was placed in the left lateral decubitis position and pre-procedure medications were administered. After a digital rectal examination of the ano-rectum, the video colonoscope was inserted into the rectum and advanced through the colon to the cecum/TI. The colonoscope was slowly withdrawn in a retrograde panoramic fashion and the colon mucosa was carefully examined including a retroflexed view of the rectum. Findings and interventions are described below. Procedure Difficulty: easy Findings: Terminal Ileum-normal Cecum:normal Ascending Colon: x 2 sessile polyps 5-6 mm removed with cold forceps and x 1 sessile polyp 8-10 mm removed with cold snare--scattered diverticula noted Transverse Colon -normal Descending Colon:normal Sigmoid Colon: moderate diverticulosis noted Rectum: Retroflexion with small internal hemorrhoids, grade I Anorectum - normal Colon preparation: [place] Bowel Preparation Scale Right colon; 2 Transverse colon: 2 Left colon; 2 (0 = Unprepared colon segment with mucosa not seen due to solid stool that cannot be cleared. 1 = Portion of mucosa of the colon segment seen, but other areas of the colon segment not well seen due to staining, residual stool and/or opaque liquid. 2 = Minor amount of residual staining, small fragments of stool and/or opaque liquid, but mucosa of colon segment seen well. 3 = Entire mucosa of colon segment seen well with no residual staining, small fragments of stool or opaque liquid) Impression and Post Procedure Diagnosis: polyps internal hemorrhoids diverticular disease Plan: High fiber diet leaflet Avoid straining at stool, epsom salts and sitz bath, anusol supps or cream Repeat Colonoscopy in 3-5 years or earlier if clinically indicated Above findings were reviewed with the patient and relevant handouts were provided if indicated.
[2022-10-22 13:55] VITALS: BP 85/57; PULSE 72; RESP 16; TEMP 36.9; O2SAT 97
[2022-10-22 14:13] VITALS: BP 103/68; PULSE 79; RESP 17; TEMP 36.7; O2SAT 97
== END 2022-10-22 14:50 | disposition home or self-care (01) ==
PROVIDERS: Nurse Practitioner; PCP Internal Medicine; Visit Provider Internal Medicine Gastroenterology
PROC: 0DJD8ZZ Inspection of Lower Intestinal Tract, Via Natural or Artificial Opening Endoscopic (ICD-10-PCS; CPT 45378; principal; 2022-10-22 14:20)
DX: R10.9 Unspecified abdominal pain (principal); Z87.19 Personal history of other diseases of the digestive system; D12.2 Benign neoplasm of ascending colon; K57.30 Diverticulosis of large intestine without perforation or abscess without bleeding; K64.0 First degree hemorrhoids; Z90.49 Acquired absence of other specified parts of digestive tract; K59.00 Constipation, unspecified; G89.29 Other chronic pain; M79.7 Fibromyalgia; K21.9 Gastro-esophageal reflux disease without esophagitis; J45.909 Unspecified asthma, uncomplicated; E66.9 Obesity, unspecified; Z68.32 Body mass index [BMI] 32.0-32.9, adult; H91.93 Unspecified hearing loss, bilateral; Z79.899 Other long term (current) drug therapy; Z79.51 Long term (current) use of inhaled steroids; Z87.891 Personal history of nicotine dependence
CPT/HCPCS: 45385; 45380; 81025; 88305

== ENCOUNTER → 2022-10-22 12:03 | Outpatient (BNV) | payer MEDICARE, MEDICAID, SELFPAY | PROVIDERS: PCP Internal Medicine; Visit Provider Internal Medicine Gastroenterology | DX: K57.30 Diverticulosis of large intestine without perforation or abscess without bleeding (principal); D12.2 Benign neoplasm of ascending colon; K64.0 First degree hemorrhoids | CPT/HCPCS: 45380; 45385 ==

== ENCOUNTER 2022-11-06 10:21 | Outpatient (AMB) | payer MEDICARE, MEDICAID, SELFPAY ==
[2022-11-06 10:23] VITALS: BP 113/57; PULSE 80; BMI 31.1
--- NOTE | 2022-11-06 10:23 | A.OFFVIS_ITS ---
Intake Vital Signs 11/06/22 10:23 Height 4 ft 8 in Weight 138 lb 14.259 oz BMI 31.1 BP 113/57 L Blood Pressure Location Lt brachial Position Sitting Pulse 80 Intake Visit Reasons: S/P [place]; Dr. Torres Intake Note: Amelie presents in the office as a follow up colonoscopy. CC: She states that she is not having any concerns since her procedure. Refrigeration Operator Required: No Allergies No Known Allergies Allergy (Verified 11/06/22 10:27) HPI HPI Comments History of Present Illness Details 46-year-old female personal history of c olon polyps follows up follows up after repeat colonoscopy with polypectomy, with Dr. Torres previous Cholestyramine good response-requesting packets it is much easier for her she has been using a family member's hand prefers Pantoprazole-good response No GI complaints today Appetite is good bowels are normal Review procedure report, pathology recommendation No nausea, vomiting, hematemesis, hematochezia fever chills PFSH Medical History (Updated 11/06/22 @ 11:59 by Elizabeth Walls PA-C) Colon adenomas Renal calculi Hearing loss, bilateral Medicare annual wellness visit, initial Abdominal pain Hearing loss Obese Asthma GERD (gastroesophageal reflux disease) Scoliosis Carpal tunnel syndrome Fibromyalgia Surgical History Hx of colonoscopy History of esophagogastroduodenoscopy (EGD) History of intestinal surgery History of dilation and curettage Hx of appendectomy Hx of section Family History Mother HTN (hypertension) Diverticulitis Father Diabetes Social History Housing: Apartment Alcohol intake: current Alcohol intake frequency: does not drink Alcohol type: beer and wine Patient Tobacco Use Status: Former Tobacco user Tobacco use type: Cigarette e-Cigarette/Vaping Use: Never Used Second Hand Smoke Exposure: No service: No Current occupational status: employed 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 Current occupational exposures/hazards: No Cognitive needs: No Hearing needs: No Vision needs: Yes Review of Systems Const All systems reviewed & are unremarkable except as noted in HPI and below Card Denies chest pain and Denies dyspnea Resp Denies dyspnea GI Denies abdominal pain Physical Exam Vital Signs: Last Vital Signs Pulse 80 11/06/22 10:23 BP 113/57 L 11/06/22 10:23 BMI result Body Mass Index 31.1 Const General: cooperative, healthy appearing, comfortable and no acute distress Orientation/consciousness: patient oriented x3 Limitations: no limitations Eyes Sclerae: sclerae normal Resp Effort & Inspection: normal respiratory effort and able to speak in complete sentences Auscultation: clear to auscultation bilaterally Skin General skin exam: no rashes or lesions noted Neuro General: patient oriented x3 Extrem General: Yes full ROM Psych Appearance: grossly normal and well kempt Mental Status: mental status grossly normal Speech and movement: Normal speech and movement present and Clear speech present Affect: normal affect Attitude: cooperative Thought process: Normal thought process present Results Reviewed Results Reviewed: mpression and Post Procedure Diagnosis: polyps internal hemorrhoids diverticular disease Plan: High fiber diet leaflet Avoid straining at stool, epsom salts and sitz bath, anusol supps or cream Repeat Colonoscopy in 3-5 years or earlier if clinically indicated Diagnosis A. Colon, ascending, polypectomies: Tubular adenoma, no evidence of high-grade dysplasia or invasive carcinoma. Clinical History Pre-Op Dx: Hx of diverticulosis Post-Op Dx: Colon polyps, diverticulosis, hemorrhoids Copies To Chai Torres MD Assessment & Plan Assessment & Plan (1) Colon adenomas: Code(s): D12.6 - Benign neoplasm of colon, unspecified Plan: Repeat asymptomatic colonoscopy 3-5 year (2) Diverticulosis of colon: Comment: Maintain high-fiber diet Reviewed ER protocol Code(s): K57.30 - Diverticulosis of large intestine without perforation or abscess without bleeding (3) Hemorrhoids: Code(s): K64.9 - Unspecified hemorrhoids Plan: Avoid straining high-fiber diet Plan All first-degree relatives begin colon screening@ 35 Medications: New cholestyramine-aspartame 4 gram (Cholestyramine Light) administer w/meal; avoid other meds within 1hr before or 4-6hr after dose 4 grams PO DAILY 60 days 60 ea 2RF Patient Instructions: Asymptomatic colonoscopy 5-6 years for adenoma All first-degree relatives should begin colon screening age 35 Discussed diverticulosis/diverticulitis ER protocol Maintain high-fiber diet avoid straining with hemorrhoid Coding Level of Care Code Est Pt Level 3 (44067) Diagnoses Colon adenomas D12.6 Diverticulosis of colon K57.30 Hemorrhoids K64.9 Time Spent (min) 30
== END 2022-11-06 15:08 | disposition home or self-care (01) ==
PROVIDERS: PCP Internal Medicine; Visit Provider Physician Assistant
DX: D12.6 Benign neoplasm of colon, unspecified (principal); K57.30 Diverticulosis of large intestine without perforation or abscess without bleeding; K64.9 Unspecified hemorrhoids
CPT/HCPCS: 99213

== ENCOUNTER → 2022-11-06 10:21 | Outpatient (BNVA) | payer MEDICARE, MEDICAID, SELFPAY | PROVIDERS: PCP Internal Medicine; Visit Provider Physician Assistant | DX: D12.6 Benign neoplasm of colon, unspecified (principal); K57.30 Diverticulosis of large intestine without perforation or abscess without bleeding; K64.9 Unspecified hemorrhoids | CPT/HCPCS: 99212 ==

== ENCOUNTER 2022-11-25 09:17 | Outpatient (REF) | payer MEDICARE, MEDICAID, SELFPAY ==
[2022-11-25 12:07] LABS: Appearance Urine Clear; Color Urine Yellow; Glucose Urine UA Negative (Negative); Leukocyte Esterase Urine Trace (Negative); Nitrite Urine Negative (Negative); PH 5.5 (5.0-9.0); UMIC TRIGGER UACC YES; Urine Blood Trace (Negative); Urine Ketones Negative (Negative); Urine Protein Negative (Neg-Trace)
[2022-11-25 12:11] LABS: Bacteria Urine 4+ (None Seen); Hyaline Casts Urine 0-2 /LPF (0-2); RBC Urine 0-2 /HPF (0-2); UACC Culture Trigger YES
== END 2022-11-25 09:18 | disposition home or self-care (01) ==
LOC: HO.LAB 09:17
PROVIDERS: PCP Internal Medicine; Visit Provider Internal Medicine
DX: R30.0 Dysuria (principal)
CPT/HCPCS: 81001; 87086; 87088; 87186

== ENCOUNTER 2022-11-26 09:24 | Emergency (ER) | payer MEDICARE, MEDICAID, SELFPAY ==
--- NOTE | ~2022-11-26 | CT_ITS ---
EXAMINATION: CT ABDOMEN AND PELVIS WITHOUT CONTRAST CLINICAL INFORMATION: Left lower quadrant pain. Left flank pain. COMPARISON: Renal ultrasound November 06, 2021 TECHNIQUE: Multidetector volumetric imaging was performed from the superior aspect of the liver through the pubic symphysis. Sagittal and coronal reformatted images were obtained on the technologist's workstation. This CT examination was performed using dose optimization techniques as appropriate, variously including the following: *Automated exposure control *Adjustment of mA and/or kV according to patient size (this includes techniques or standardized protocols for targeted exams where dose is matched to indication/reason for exam; i.e. extremities or head) *Use of iterative reconstruction technique DLP: 521 mGy-cm FINDINGS: Visualized lung bases demonstrate mild dependent atelectasis. The liver is normal in size but demonstrates diffusely decreased attenuation. The gallbladder is normal in appearance. The pancreas, spleen and adrenal glands are unremarkable. Symmetrically sized kidneys. No renal calculi or hydronephrosis of either kidney. Normal caliber loops of small and large bowel. Unremarkable anastomotic suture line of the sigmoid colon. There is overall moderate stool burden throughout the majority the colon. The appendix is surgically absent. Normal caliber abdominal aorta. No retroperitoneal lymphadenopathy. Tiny fat-containing umbilical hernia in addition to a subcentimeter fat-containing supraumbilical hernia. The bladder is normal in appearance. Unremarkable CT appearance of the uterus. No gross free pelvic fluid. No inguinal lymphadenopathy. No acute osseous abnormality. CT/CT abdomen pelvis wo IV con IMPRESSION: -Moderate stool burden throughout the colon suggesting constipation. -Diffusely decreased liver attenuation suggesting hepatic steatosis. Correlation with liver enzymes recommended. Fleischner guidelines were followed.
[2022-11-26 09:28] VITALS: PULSE 78; RESP 16; TEMP 36.4; O2SAT 98; BMI 31.5
--- NOTE | 2022-11-26 09:37 | ED_ITS ---
HPI - Female Genitourinary General Chief complaint: Abdominal Pain Stated complaint: L flank pain/pain when urinating Time Seen by Provider: 11/26/22 09:36 Source: patient Mode of arrival: ambulatory Limitations: no limitations History of Present Illness HPI Narrative: 46 yo female with history of GERD, hemorrhoids, asthma, fibromylagia, kidney stones, diverticulitis who presents to the ER for evaluation of painful urination x5 days along with LLQ pain and back pain that started yesterday. She had a urine test done by her PCP yesterday but does not know the results was not started on antibiotics. She reports since last night she has had worsening LLQ stabbing pains along with nausea and bilateral back pain. She she ongoing dysuria. She had foul smelling urine and strong odor a few days ago which improved. She denies fevers but has had chills. No constipation or diarrhea. She states the pain feels similar to both episodes of diverticulitis as well as her kidney stones in the past. MD elicited complaint: dysuria, flank pain and other (LLQ pain) Pertinent past history: other (diverticulitis, kidney stone) Onset (ago): day(s) (5) Location of symptoms: suprapubic, LLQ and urethra Severity: moderate Female Urogenital Radiation: L Flank Severity scale (1-10): 8 Quality of pain: stabbing Consistency: constant and progressively worsening Vaginal discharge: none Vaginal bleeding: none Urinary symptoms: Dysuria, Urgency, Frequency and Foul Smelling Urine Exacerbating factors: urination Relieving factors: none Associated symptoms: abdominal pain, nausea and back pain Treatment prior to arrival: none Sexual activity: No Patient : No Related Data Home Medications Medication Instructions Recorded Confirmed albuterol sulfate 90 mcg/actuation 0 mcg inhalation 07/18/22 07/23/22 aerosol inhaler Previous Rx's Medication Instructions Recorded montelukast 10 mg tablet 10 mg PO DAILY 90 days #90 tabs 08/16/22 (Singulair) cyclosporine 0.05 % eye drops in a 1 drp ophthalmic (eye) BID 30 days 08/28/22 dropperette #30 ea cholestyramine (with sugar) 4 gram 1 ea PO DAILY 30 days #378 grams 10/19/22 oral powder pantoprazole 40 mg tablet,delayed 40 mg PO DAILY 90 days #90 tabs 10/19/22 release cholestyramine-aspartame 4 gram 4 g PO DAILY 60 days #60 ea 11/06/22 oral powder for susp in a packet (Cholestyramine Light) valacyclovir 1 gram tablet 1,000 mg PO DAILY 90 days #90 tabs 11/08/22 cefuroxime axetil 250 mg tablet 250 mg PO BID 7 days #14 tabs 11/26/22 phenazopyridine 100 mg tablet 100 mg PO TID PRN pain 6 doses #6 11/26/22 (Pyridium) tabs sulfamethoxazole 800 1 tab PO BID 5 days #10 tabs 11/26/22 mg-trimethoprim 160 mg tablet (Bactrim DS) Allergies Allergy/AdvReac Type Severity Reaction Status Date / Time No Known Allergies Allergy Verified 11/26/22 09:28 Review of Systems 2 Review of Systems: Yes all other systems are reviewed and are negative [facility] Past Medical History Medical History (Updated 11/26/22 @ 12:20 by SMITH Hsu) Colon adenomas Renal calculi Hearing loss, bilateral Medicare annual wellness visit, initial Abdominal pain Hearing loss Obese Asthma GERD (gastroesophageal reflux disease) Scoliosis Carpal tunnel syndrome Fibromyalgia Surgical History Hx of colonoscopy History of esophagogastroduodenoscopy (EGD) History of intestinal surgery History of dilation and curettage Hx of appendectomy Hx of section Family History Family History Mother HTN (hypertension) Diverticulitis Father Diabetes Social History Social History Housing: Apartment Alcohol intake: current Alcohol intake frequency: does not drink Alcohol type: beer and wine Patient Tobacco Use Status: Former Tobacco user Tobacco use type: Cigarette Smoked in Last 30 Days: No e-Cigarette/Vaping Use: Never Used Second Hand Smoke Exposure: No Use of substances other than those prescribed or required for medical reasons: No Advance Directives: No Advance Directives Information Provided: Yes Patient : No service: No Current occupational status: employed 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 Oriented X3. No acute distress. Head: normocephalic, atraumatic. Eyes: Pupils equal, round and reactive to light. ENT: Pharynx normal. No tonsillar swelling or exudate. Neck: Normal inspection. Neck supple. CVS: Normal heart rate and rhythm. Pulses normal. Respiratory: No respiratory distress. Breath sounds normal. Abdomen: Soft with LLQ tenderness with guarding, no rebound, +BS. No CVA tenderness Skin: Skin warm and dry. Normal skin color. Normal skin turgor. No rashes. Extremities: No lower extremity edema. No joint swelling. Neuro/psych: Oriented X 3. No motor deficit. No sensory deficit. CN II-XII intact. Normal speech and cognition. Medications Administered Discontinued Medications Generic Name Dose Route Start Last Admin Trade Name Freq PRN Reason Stop Dose Admin Sodium Chloride 1,000 mls @ 999 mls/hr 11/26/22 09:45 11/26/22 12:18 Ns IVCONT 11/26/22 10:45 Infused .Q1H1M BRITTANY Infusion Ceftriaxone Sodium 1 gm/ 50 mls @ 100 mls/hr 11/26/22 11:24 11/26/22 12:18 Sodium Chloride IV 11/26/22 11:53 Infused ONCE ONE Infusion Morphine Sulfate 4 mg 11/26/22 09:44 11/26/22 10:04 Morphine Sulfate 4 Mg/Ml Cartridge IVPUSH 11/26/22 09:45 4 mg ONCE ONE Administration Protocol Ondansetron HCl 4 mg 11/26/22 09:44 11/26/22 10:04 Ondansetron Hcl 4 Mg/2 Ml Vial IVPUSH 11/26/22 09:45 4 mg ONCE ONE Administration Medical Decision Making Medical Decision Making MDM Narrative: 46 yo female with history of GERD, hemorrhoids, asthma, fibromylagia, kidney stones, diverticulitis who presents to the ER for evaluation of painful urination x5 days along with LLQ pain and back pain that started yesterday. Tender LLQ on exam but abd soft. VSS, no fever or tachycardia to suggest sepsis. Labs showing mild leukocytosis, 12.6, unremarkable otherwise UA grossly positive for infection CT scan without kidney stone or diverticulitis. moderate constipation Given IV rocephin in the ER - will plan to continue oral abx, pyridium and rec outpatient follow up. comfortable w/ discharge home. patient agrees w/ plan, return precautions were discussed Differential Diagnosis Differential Diagnoses: The differential diagnosis associated with the presentation includes diverticulitis, lower UTI, pyelonephrtitis, kidney stone, obstructive uropathy, constipation Admission/Observation Consideration of admission/observation: Escalation of care including admission/observation considered considered admission on arrival for LLQ pain Lab Data MDM Lab Attestation statement: I reviewed the patient's lab results. mild leukocytosis, normal renal function 11/26/22 09:52 11/26/22 09:52 Labs: Lab Results 11/26/22 11/26/22 Range/Units 09:52 11:11 WBC 12.6 H (4.8-10.8) X10*3/uL RBC 4.54 (4.20-5.50) X10*6/uL Hgb 13.6 (12.0-16.0) g/dl Hct 39.5 (37.0-47.0) % MCV 87.0 (80.0-98.0) fL MCH 30.0 (27.0-33.0) pg MCHC 34.4 (31.0-35.0) g/dl RDW 12.9 (11.0-16.0) % Plt Count 235 (160-400) X10*3/uL MPV 11.4 (9.4-12.3) fL Immature Gran % (Auto) 0.4 (0.0-0.4) % Neut % (Auto) 79.9 H (45-73) % Lymph % (Auto) 12.1 L (20-40) % [place] % (Auto) 6.4 (2-11) % Eos % (Auto) 0.9 (0-4) % Baso % (Auto) 0.3 (0-2) % Lymph # (Auto) 1.5 (1.2-4.9) X10*3/uL [place] # (Auto) 0.8 (0.1-1.2) X10*3/uL Eos # (Auto) 0.1 (0.0-0.4) X10*3/uL Baso # (Auto) 0.0 (0.0-0.2) X10*3/uL Abs Immat Gran (auto) 0.05 H (0.00-0.03) X10*3/uL Absolute Neuts (auto) 10.1 H (2.0-8.3) x10*3/uL Absolute Nucleated RBC 0.000 (0.0-0.012) X10*3/uL Nucleated RBC % (auto) 0.0 (0.0-0.2) /100WBC Sodium 139 (135-145) mmol/L Potassium 3.8 (3.3-5.1) mmol/L Chloride 105 (96-108) mmol/L Carbon Dioxide 24 (22-29) mmol/L Anion Gap 14 (12-20) BUN 9 (9-16) mg/dL Creatinine 0.59 (0.5-1.4) mg/dL Estim Creat Clear Calc 89.8 Estimated GFR > 60 Random Glucose 100 (60-115) mg/dL Calcium 9.7 (8.4-10.2) mg/dL Magnesium 2.0 (1.6-2.6) mg/dL Total Bilirubin 0.5 (0.0-1.0) mg/dL Direct Bilirubin 0.2 (0.0-0.5) mg/dL AST 12 (5-31) U/L ALT 14 (0-31) U/L Alkaline Phosphatase 77 (39-117) U/L Total Protein 7.1 (6.5-8.0) g/dL Albumin 4.2 (3.5-5.0) g/dL Beta HCG, Quant < 2 mIU/mL Urine Color Yellow Urine Appearance Clear Urine pH 7.0 (5.0-9.0) Ur Specific [place] <= 1.005 (1.005-1.025) Urine Protein Trace (Neg-Trace) mg/dL Urine Glucose (UA) Negative (Negative) mg/dL Urine Ketones Negative (Negative) mg/dL Urine Blood Moderate (2+) H (Negative) Urine Nitrite Negative (Negative) Ur Leukocyte Esterase Large (3+) H (Negative) Urine RBC 6-10 H (0-2) /HPF Urine WBC >50 H (0-5) /HPF Ur Squamous Epith Cells 0-2 (0-2) /HPF Urine Bacteria Trace (None Seen) Hyaline Casts 0-2 (0-2) /LPF Independent Interpretation I performed an independent interpretation of an: CT Scan Interpretation: CT scan without perinephric stranding on the left, no visible ureteral kidney stone or hydro, no colonic stranding or obvious abscess. agree w/ radiology read Radiology Impression Discussion of test interpretation with radiology: I have reviewed the radiologist's reading. Radiologist Impression: EXAMINATION: CT ABDOMEN AND PELVIS WITHOUT CONTRAST CLINICAL INFORMATION: Left lower quadrant pain. Left flank pain. COMPARISON: Renal ultrasound November 06, 2021 TECHNIQUE: Multidetector volumetric imaging was performed from the superior aspect of the liver through the pubic symphysis. Sagittal and coronal reformatted images were obtained on the technologist's workstation. This CT examination was performed using dose optimization techniques as appropriate, variously including the following: *Automated exposure control *Adjustment of mA and/or kV according to patient size (this includes techniques or standardized protocols for targeted exams where dose is matched to indication/reason for exam; i.e. extremities or head) *Use of iterative reconstruction technique DLP: 521 mGy-cm FINDINGS: Visualized lung bases demonstrate mild dependent atelectasis. The liver is normal in size but demonstrates diffusely decreased attenuation. The gallbladder is normal in appearance. The pancreas, spleen and adrenal glands are unremarkable. Symmetrically sized kidneys. No renal calculi or hydronephrosis of either kidney. Normal caliber loops of small and large bowel. Unremarkable anastomotic suture line of the sigmoid colon. There is overall moderate stool burden throughout the majority the colon. The appendix is surgically absent. Normal caliber abdominal aorta. No retroperitoneal lymphadenopathy. Tiny fat-containing umbilical hernia in addition to a subcentimeter fat-containing supraumbilical hernia. The bladder is normal in appearance. Unremarkable CT appearance of the uterus. No gross free pelvic fluid. No inguinal lymphadenopathy. No acute osseous abnormality. CT/CT abdomen pelvis wo IV con IMPRESSION: -Moderate stool burden throughout the colon suggesting constipation. -Diffusely decreased liver attenuation suggesting hepatic steatosis. Correlation with liver enzymes recommended. External Record Review External record reviewed: Outpatient record, Prior outpatient labs and Prior outpatient radiology Prescription Management I considered prescription management with: Pain Medication and Antibiotic Chronic Conditions Patient?s care impacted by: Other (hx kidney stones and hx diverticulitis ) Critical Care Time Critical Care Time Critical Care Time: No Discharge Plan Discharge Clinical Impression: Acute UTI, Constipation Patient Disposition: Home, Self-Care Instructions: Urinary Tract Infection in Women (DC) Additional Instructions: Your urine test showed infection Take the prescribed antibiotics as directed, complete the entire course and do not miss any doses Drink plenty of fluids. Your CT scan did not show any evidence of diverticulitis or kidney stones. It showed moderate constipation Recommend over the counter miralax, senna, colace or metamucil to help with constipation Follow up with your doctor If you develop new or worsening symptoms call 911 or come back to the ER for further evaluation. Prescriptions: New phenazopyridine [Pyridium] 100 mg tablet 100 mg PO TID PRN (Reason: pain) Qty: 6 0RF cefuroxime axetil 250 mg tablet 250 mg PO BID 7 Days Qty: 14 0RF No Action montelukast [Singulair] 10 mg tablet 10 mg PO DAILY 90 Days Qty: 90 3RF cyclosporine 0.05 % dropperette 1 drp ophthalmic (eye) BID 30 Days Qty: 30 6RF pantoprazole 40 mg tablet,delayed release (DR/EC) 40 mg PO DAILY 90 Days Qty: 90 3RF cholestyramine (with sugar) 4 gram powder 1 ea PO DAILY 30 Days Qty: 378 6RF valacyclovir 1 gram tablet 1,000 mg PO DAILY 90 Days Qty: 90 1RF sulfamethoxazole-trimethoprim [Bactrim DS] 800-160 mg tablet 1 tab PO BID 5 Days Qty: 10 0RF albuterol sulfate 90 mcg/actuation HFA aerosol inhaler 0 mcg inhalation cholestyramine-aspartame [Cholestyramine Light] 4 gram powder in packet 4 g PO DAILY 60 Days Qty: 60 2RF Rx Instructions: administer w/meal; avoid other meds within 1hr before or 4-6hr after dose
[2022-11-26 09:58] LABS: MANUAL DIFF FLAG NO
[2022-11-26 09:59] LABS: Basophils Percent Auto 0.3 % (0-2); Eosinophils Absolute Auto 0.1 X10*3/uL (0.0-0.4); Eosinophils Percent Auto 0.9 % (0-4); Hematocrit 39.5 % (37.0-47.0); Hemoglobin 13.6 g/dl (12.0-16.0); Imm Gran Abs Auto 0.05 X10*3/uL (0.00-0.03); Imm Gran Pct Auto 0.4 % (0.0-0.4); Lymphocytes Absolute Auto 1.5 X10*3/uL (1.2-4.9); Lymphocytes Percent Auto 12.1 % (20-40); Mean Corpuscular HGB Conc 34.4 g/dl (31.0-35.0); Mean Platelet Volume 11.4 fL (9.4-12.3); Monocytes Absolute Auto 0.8 X10*3/uL (0.1-1.2); Monocytes Percent Auto 6.4 % (2-11); Neutrophils Absolute Auto 10.1 x10*3/uL (2.0-8.3); Neutrophils Percent Auto 79.9 % (45-73); Platelet Count 235 X10*3/uL (160-400); Red Blood Count 4.54 X10*6/uL (4.20-5.50); Red Cell Distribution Width 12.9 % (11.0-16.0); White Blood Count 12.6 X10*3/uL (4.8-10.8)
[2022-11-26] MEDS: ondansetron HCL 4 MG/2 ML VIAL IVPUSH (10:04)
[2022-11-26] MEDS: 0.9 % Sodium Chloride 1,000 ML 999 ML IVCONT (10:04)
[2022-11-26] MEDS: Morphine Sulfate 4 MG/ML CARTRIDGE IVPUSH (10:04)
[2022-11-26 10:05] VITALS: BP 119/80; PULSE 87; RESP 16; TEMP 36.8
[2022-11-26 10:14] LABS: Alanine Aminotransferase 14 U/L (0-31); Albumin Level 4.2 g/dL (3.5-5.0); Alkaline Phosphatase 77 U/L (39-117); Anion Gap 14 (12-20); Aspartate Amino Transferase 12 U/L (5-31); Bilirubin Direct 0.2 mg/dL (0.0-0.5); Bilirubin Total 0.5 mg/dL (0.0-1.0); Blood Urea Nitrogen 9 mg/dL (9-16); Calcium 9.7 mg/dL (8.4-10.2); Carbon Dioxide 24 mmol/L (22-29); Chloride 105 mmol/L (96-108); Creatinine Clr Calc Pharmacy 89.8; Estimated Glomerular Filt Rate > 60; Glucose Random 100 mg/dL (60-115); Potassium 3.8 mmol/L (3.3-5.1); Sodium 139 mmol/L (135-145); Total Protein 7.1 g/dL (6.5-8.0)
[2022-11-26 10:26] LABS: HCG Quantitative < 2 mIU/mL
[2022-11-26 11:09] VITALS: BP 108/63; PULSE 82; RESP 15; TEMP 36.7; O2SAT 92
[2022-11-26 11:19] LABS: Appearance Urine Clear; Color Urine Yellow; Glucose Urine UA Negative (Negative); Leukocyte Esterase Urine Large (3+) (Negative); Nitrite Urine Negative (Negative); Specific Gravity - Urine <= 1.005 (1.005-1.025); UMIC TRIGGER UACC YES; Urine Blood Moderate (2+) (Negative); Urine Ketones Negative (Negative); Urine Protein Trace mg/dL (Neg-Trace)
[2022-11-26 11:23] LABS: Bacteria Urine Trace (None Seen); Hyaline Casts Urine 0-2 /LPF (0-2); Squamous Epithelial Cell Urine 0-2 /HPF (0-2); UACC Culture Trigger YES; WBC Urine >50 /HPF (0-5)
[2022-11-26] MEDS: cefTRIAXone sodium 1 GM in 0.9 % Sodium Chloride 50 ML IV (11:33)
--- NOTE | 2022-11-26 11:34 | PC.NURSE ---
Assumed care of pt at 1100, ABT given, VSS, pt resting comfortably
== END 2022-11-26 12:32 | disposition home or self-care (01) ==
PROVIDERS: Physician Assistant; Emergency Provider Emergency Medicine; PCP Internal Medicine
DX: N39.0 Urinary tract infection, site not specified (principal); K59.00 Constipation, unspecified; Z87.891 Personal history of nicotine dependence; Z87.442 Personal history of urinary calculi; R10.32 Left lower quadrant pain
CPT/HCPCS: 36415; 74176; 80048; 80076; 81001; 83735; 84702; 85025; 96361; 96374; 96375; 99284; J0696; J2270; J2405

== ENCOUNTER 2022-12-09 09:51 | Outpatient (REF) | payer MEDICARE, MEDICAID, SELFPAY ==
--- NOTE | ~2022-12-09 | US_ITS ---
EXAMINATION: US RETROPERITONEAL LIMITED (RENAL ONLY) CLINICAL INFORMATION: Calculus of kidney. COMPARISON: CT abdomen and pelvis 11/26/2022. Renal ultrasound 11/06/2021 and 06/14/2021. TECHNIQUE: Real-time imaging of the kidneys. Limited visualization due to bowel gas. FINDINGS: RIGHT KIDNEY: 10.8 x 4.4 x 4.1 cm (SAG x AP x TRV). No hydronephrosis. No renal calculi. Renal cortical thickness is normal. Limited visualization. LEFT KIDNEY: 12.3 x 5.3 x 4.9 cm (SAG x AP x TRV). No hydronephrosis. No renal calculi. Renal cortical thickness is normal. Limited visualization. US/US renal BI IMPRESSION: No hydronephrosis. No renal calculi. Renal cortical thickness is normal. Limited visualization.
== END 2022-12-09 09:52 | disposition home or self-care (01) ==
LOC: HO.US 09:51
PROVIDERS: PCP Internal Medicine; Visit Provider Urology
DX: N20.0 Calculus of kidney (principal)
CPT/HCPCS: 76775

== ENCOUNTER 2022-12-27 10:37 | Outpatient (AMB) | payer MEDICARE, MEDICAID, SELFPAY ==
--- NOTE | 2022-12-27 10:39 | MHC.OFFVIS ---
Intake Intake Visit Reasons: one yr nephrolithiasis follow up w renal US Intake Note: Patient presents today for a 1 yr follow-up with Renal Ultrasound: Meds- Pyriduim Allergies to Antibiotic- No Known Allergies Blood Thinner- None Housekeeper/Laundry Assistant Required: No Accompanied by: Self / Same As Patient Allergies No Known Allergies Allergy (Verified 12/27/22 10:39) HPI HPI Comments History of Present Illness Details Brenda is a 47-year-old female who presents today to the office for a follow-up. 12/27/2022? She is followed today for renal US results. She was seen in ER on 11/26/2022 for left flank pain and dysuria. She has had urine culture sent in ER which came back positive for E.coli. She was treated with abx's and states she is doing better. She states that she is drinking adequate amount of fluids. I reviewed the CAT scan results from 11/26/2022 which was negative urolithiasis. I reviewed the renal US 12/09/22 - kidneys WNL 12/27/2022: Evaluation today?UA? leukocytes: negative; blood: negative. 12/27/2022: Plan: Vitamin B6 100 mg daily was ordered. Follow-up in one year renal US prior. ON LICENSE OF [facility] Medical History Colon adenomas Renal calculi Hearing loss, bilateral Medicare annual wellness visit, initial Abdominal pain Hearing loss Obese Asthma GERD (gastroesophageal reflux disease) Scoliosis Carpal tunnel syndrome Fibromyalgia Surgical History Hx of colonoscopy History of esophagogastroduodenoscopy (EGD) History of intestinal surgery History of dilation and curettage Hx of appendectomy Hx of section Family History Mother HTN (hypertension) Diverticulitis Father Diabetes Social History Housing: Apartment Alcohol intake: current Alcohol intake frequency: does not drink Alcohol type: beer and wine Patient Tobacco Use Status: Former Tobacco user Tobacco use type: Cigarette e-Cigarette/Vaping Use: Never Used Second Hand Smoke Exposure: No service: No Current occupational status: employed 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 Current occupational exposures/hazards: No Cognitive needs: No Hearing needs: No Vision needs: Yes Review of Systems Const All systems reviewed & are unremarkable except as noted in HPI and below Reports no additional complaints Eyes Reports no additional complaints ENT Reports no additional complaints Card Denies dyspnea Resp Denies cough and Denies dyspnea GI Reports no additional complaints Reports no additional complaints Musc Reports no additional complaints Skin/Breast Denies rash and Denies unusual bruising Neuro Reports no additional complaints Psych Reports no additional complaints Endo Reports no additional complaints Parminder/Lymph Reports no additional complaints Aller/Immun Reports no additional complaints Results AMB Urinalysis, Automated UA Leukoctes 0 Bry/uL Last Edit by EULALIA Woodson on 12/27/22 10:56 UA Nitrite Negative Last Edit by Jose Guadalupe Don [facility] on 12/27/22 10:56 UA Urobilinogen 0.2 mg/dL Last Edit by Jose Guadalupe Don [place] on 12/27/22 10:56 UA Protein 0 mg/dL Last Edit by Jose Guadalupe Don [facility] on 12/27/22 10:56 UA pH 6.0 Last Edit by Jose Guadalupe Don [facility] on 12/27/22 10:56 UA Blood 0 Leonard/uL Last Edit by Jose Guadalupe Don [place] on 12/27/22 10:56 UA Specific [place] 1.020 Last Edit by Jose Guadalupe Don [place] on 12/27/22 10:56 UA Ketone Negative Last Edit by Jose Guadalupe Don [place] on 12/27/22 10:56 UA Bilirubin 0 mg/dL Last Edit by Jose Guadalupe Don [facility] on 12/27/22 10:56 UA Glucose 0 mg/dL Last Edit by Jose Guadalupe Don [facility] on 12/27/22 10:56 Results Reviewed Results Reviewed: Laboratory Last Values Urine pH (Auto) 6.0 12/27/22 10:54 Specific [place] (Auto) 1.020 12/27/22 10:54 Urine Protein (Auto) 0 mg/dL 12/27/22 10:54 Glucose (UA)(Auto) 0 mg/dL 12/27/22 10:54 Urine Ketones (Auto) Negative 12/27/22 10:54 Urine Blood (Auto) 0 Leonard/uL 12/27/22 10:54 Urine Nitrite (Auto) Negative 12/27/22 10:54 Urine Bilirubin (Auto) 0 mg/dL 12/27/22 10:54 Urine Urobilinogen (Auto) 0.2 mg/dL 12/27/22 10:54 Leukocyte Esterase (Auto) 0 Bry/uL 12/27/22 10:54 Date of Service: 12/09/22 EXAMINATION: US RETROPERITONEAL LIMITED (RENAL ONLY) CLINICAL INFORMATION: Calculus of kidney. COMPARISON: CT abdomen and pelvis 11/26/2022. Renal ultrasound 11/06/2021 and 06/14/2021. FINDINGS: RIGHT KIDNEY: 10.8 x 4.4 x 4.1 cm (SAG x AP x TRV). No hydronephrosis. No renal calculi. Renal cortical thickness is normal. Limited visualization. LEFT KIDNEY: 12.3 x 5.3 x 4.9 cm (SAG x AP x TRV). No hydronephrosis. No renal calculi. Renal cortical thickness is normal. Limited visualization. IMPRESSION: No hydronephrosis. No renal calculi. Renal cortical thickness is normal. Limited visualization. Date of Service: 11/26/22 EXAMINATION: CT ABDOMEN AND PELVIS WITHOUT CONTRAST CLINICAL INFORMATION: Left lower quadrant pain. Left flank pain. COMPARISON: Renal ultrasound November 06, 2021 FINDINGS: Visualized lung bases demonstrate mild dependent atelectasis. The liver is normal in size but demonstrates diffusely decreased attenuation. The gallbladder is normal in appearance. The pancreas, spleen and adrenal glands are unremarkable. Symmetrically sized kidneys. No renal calculi or hydronephrosis of either kidney. Normal caliber loops of small and large bowel. Unremarkable anastomotic suture line of the sigmoid colon. There is overall moderate stool burden throughout the majority the colon. The appendix is surgically absent. Normal caliber abdominal aorta. No retroperitoneal lymphadenopathy. Tiny fat-containing umbilical hernia in addition to a subcentimeter fat-containing supraumbilical hernia. The bladder is normal in appearance. Unremarkable CT appearance of the uterus. No gross free pelvic fluid. No inguinal lymphadenopathy. No acute osseous abnormality. IMPRESSION: -Moderate stool burden throughout the colon suggesting constipation. -Diffusely decreased liver attenuation suggesting hepatic steatosis. Correlation with liver enzymes recommended Assessment & Plan Assessment & Plan (1) Renal calculi: Code(s): N20.0 - Calculus of kidney (2) UTI (urinary tract infection): Code(s): N39.0 - Urinary tract infection, site not specified (3) Left flank pain: Code(s): R10.9 - Unspecified abdominal pain Plan Vitamin B6 100 mg daily was ordered. Follow-up in one year renal US prior. Orders: Orders AMB Urinalysis Automated 12/27/22 Z13.9 - Encounter for screening, unspecified Medications: New pyridoxine (vitamin B6) 100 mg PO DAILY 90 tabs 3RF Patient Instructions: The patient had an opportunity to ask questions regarding treatment plan. All questions were answered. Imaging, Laboratory studies and physical exam results were discussed and reviewed in detail. No major barriers to understanding were identified. The patient expressed understanding and agreement with the above treatment plan. The patient is aware they should contact our office by phone for worsening of their current condition or the appearance of new symptoms. Compliance is encouraged with any medications and followup testing that is ordered. It is a privilege to be allowed the opportunity to participate in the urologic care of your patient. If you have any questions or concerns regarding treatment for the above conditions please do not hesitate to contact me. The office telephone contact is [phone]. This note is constructed in part using voice recognition software. While every effort has been made to ensure accuracy cigar packer and picker errors may have been included. Yours sincerely, Paola Quintanilla MD Coding Level of Care Code Est Pt Level 4 (09978) Diagnoses Renal calculi N20.0 UTI (urinary tract infection) N39.0 Left flank pain R10.9
== END 2022-12-27 11:43 | disposition home or self-care (01) ==
PROVIDERS: Visit Provider Urology
DX: N20.0 Calculus of kidney (principal); N39.0 Urinary tract infection, site not specified; R10.9 Unspecified abdominal pain
CPT/HCPCS: 99214

== ENCOUNTER → 2022-12-27 10:37 | Outpatient (BNVA) | payer MEDICARE, MEDICAID, SELFPAY | PROVIDERS: Visit Provider Urology | DX: N20.0 Calculus of kidney (principal); N39.0 Urinary tract infection, site not specified; R10.9 Unspecified abdominal pain | CPT/HCPCS: 81003; 99212 ==

== ENCOUNTER 2023-02-04 09:52 | Outpatient (AMB) | payer MEDICARE, MEDICAID, SELFPAY ==
--- NOTE | 2023-02-04 09:58 | MHC.PC.OV ---
Vital Signs 02/04/23 09:59 Height 4 ft 8 in Weight 146 lb BMI 32.7 BP 110/80 Blood Pressure Location Lt brachial Position Sitting Intake Visit Reasons: Annual Exam Intake Note: Patient here for an annual physical exam Underwriting Account Representative Required: No Accompanied by: Self / Same As Patient Allergies No Known Allergies Allergy (Verified 02/04/23 10:07) Medication List - Last Reconciled 02/04/23 by Shelia Perez MD albuterol sulfate 90 mcg/actuation 0 mcg inhalation cholestyramine (with sugar) 4 gram 1 ea PO DAILY 30 days cholestyramine-aspartame 4 gram (Cholestyramine Light) 4 grams PO DAILY 60 days cyclosporine 0.05% 1 drp ophthalmic (eye) BID 30 days montelukast (Singulair) 10 mg PO DAILY 90 days pantoprazole 40 mg PO DAILY 90 days pyridoxine (vitamin B6) 100 mg PO DAILY valacyclovir 1,000 mg PO DAILY 90 days Tobacco use date assessed: 07/23/22 Dental Screening Dental Screen Date: 02/04/23 Did you have a dental visit in the last 12 months?: Yes Did you have a dental problem in the last 6 months where you did not have access to dental care?: No Was dental information given to patient?: Patient has dentist HPI HPI Comments History of Present Illness Details This is a 47-year-old female that comes for her physical exam. Last mammogram was December 2022 at [facility] and was normal. Last Pap smear was February 2022 and was normal. Last colonoscopy was September 2022 showing some colon polyps and next colonoscopy is in 5 years. Complains of occasional tachycardia that happens at rest or on exertion. [facility] Medical History (Updated 02/04/23 @ 10:27 by Shelia Perez MD) Colon adenomas Renal calculi Hearing loss, bilateral Medicare annual wellness visit, initial Abdominal pain Hearing loss Obese Asthma GERD (gastroesophageal reflux disease) Scoliosis Carpal tunnel syndrome Fibromyalgia Surgical History Hx of colonoscopy History of esophagogastroduodenoscopy (EGD) History of intestinal surgery History of dilation and curettage Hx of appendectomy Hx of section Family History Mother HTN (hypertension) Diverticulitis Father Diabetes Social History (Updated 02/04/23 @ 10:22 by Shelia Perez MD) Housing: Apartment Alcohol intake: current Alcohol intake frequency: does not drink Alcohol type: beer and wine Patient Tobacco Use Status: Former Tobacco user Tobacco use type: Cigarette e-Cigarette/Vaping Use: Never Used Second Hand Smoke Exposure: No service: No Current occupational status: employed 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 Srinivasa Lindsay, Keyona Ambrose, Josse Ruiz and colleagues, with an educational mira from [employer]. Review of Systems Const All systems reviewed & are unremarkable except as noted in HPI and below Eyes Reports no additional complaints, Denies change in vision and Denies other visual disturbances Card Denies chest pain at rest, Denies chest pain with activity, Reports rapid heart rate, Denies edema, Denies irregular heart rhythm, Denies claudication, Denies dyspnea, Denies dyspnea on exertion, Denies orthopnea, Denies paroxysmal nocturnal dyspnea and Denies slow heart rate Resp Denies cough, Denies dyspnea and Denies dyspnea on exertion GI Denies abdominal pain, Denies change in bowel habits, Denies excessive flatus, Denies nausea and Denies vomiting Denies urinary incontinence, Denies urinary hesitancy and Denies urinary urgency Musc Denies abnormal gait, Denies atrophy, Denies deformity and Denies limited range of motion Skin/Breast Denies bleeding lesions, Denies changing lesions and Denies rash Neuro Denies abnormal gait, Denies behavioral changes, Denies confusion and Denies lack of coordination Psych Denies behavioral changes and Denies confusion Physical exam (Primary Care) Vital Signs: Last Vital Signs BP 110/80 02/04/23 09:59 BMI result Body Mass Index 32.7 Tobacco/Smoking Status: Tobacco use Status Tobacco use date assessed 07/23/22 02/04/23 09:58 Patient Tobacco Use Status Former Tobacco user 02/04/23 09:58 Tobacco use type Cigarette 02/04/23 09:58 e-Cigarette/Vaping Use Never Used 02/04/23 09:58 Thrive Assessment: Date of Thrive Assessment Date Thrive assessed 07/23/22 02/04/23 09:58 Const General: No confusion Orientation/consciousness: patient oriented x3 and No confusion HENMT Head: Yes normal to inspection, Yes normocephalic and Yes atraumatic Ears: external ears normal Eyes General: appearance normal, both eyes and all related structures Eyelids: Yes eyelids normal Conjunctivae: conjunctivae normal Neck Neck: Yes normal visual inspection and Yes supple Resp Effort & Inspection: normal respiratory effort Auscultation: clear to auscultation bilaterally Cardio Jugular venous distension: no JVD Rate: regular rate Rhythm: regular rhythm Heart sounds: S1 normal heart sound present and S2 normal heart sound present GI Inspection: Yes normal to inspection Palpation (GI): Soft to palpation and nontender Auscultation: normal bowel sounds Skin General skin exam: no rashes or lesions noted Neuro General: patient oriented x3, no focal motor deficits and No confusion Extrem General: Yes full ROM Psych Appearance: grossly normal Office Procedures Flu Questionnaire Does the patient have a severe egg allergy?: No Immunizations flu vacc [id number] 6mos up(PF) 60 mcg(15 mcgx4)/0.5 mL IM syringe Performing Provider: Shelia Perez MD [facility] Documented (not given) by: EULALIA Aguilar on 02/04/23 10:07 Reason Not Given: Patient Refused Assessment and Plan Assessment & Plan (1) Physical exam: Code(s): Z00.00 - Encounter for general adult medical examination without abnormal findings Plan: Repeat in a year. Orders: Orders Comprehensive [place]. Panel Fast Today Z00.00 - Encounter for general adult medical examination without abnormal findings Lipid Panel Today Z00.00 - Encounter for general adult medical examination without abnormal findings ECG 12 lead EKG Today R00.0 - Tachycardia, unspecified Influenza [id number] Immunization Today Z23 - Encounter for immunization Coding Level of Care Code Est Pt Prev Care 40-64y(99892) Diagnoses Physical exam Z00.00 Time Spent (min) 31
[2023-02-04 09:59] VITALS: BP 110/80; BMI 32.7
== END 2023-02-04 10:26 | disposition home or self-care (01) ==
PROVIDERS: Visit Provider Internal Medicine
DX: Z00.00 Encounter for general adult medical examination without abnormal findings (principal)
CPT/HCPCS: 99396

== ENCOUNTER → 2023-03-06 09:27 | Outpatient (REF) | payer MEDICARE, MEDICAID, SELFPAY ==
--- NOTE | 2023-03-06 09:31 | ECG_ITS ---
Test Reason : tachycardia Blood Pressure : / mmHG Vent. Rate : 076 BPM Atrial Rate : 076 BPM P-R Int : 160 ms QRS Dur : 080 ms QT Int : 396 ms P-R-T Axes : 043 021 031 degrees QTc Int : 445 ms Normal sinus rhythm Normal ECG No previous ECGs available Referred By: Shelia Perez Electronically Signed By:JUNE GARDUNO MD
[2023-03-06 11:03] LABS: Alanine Aminotransferase 29 U/L (0-31); Albumin Level 4.1 g/dL (3.5-5.0); Alkaline Phosphatase 77 U/L (39-117); Anion Gap 14 (12-20); Aspartate Amino Transferase 21 U/L (5-31); Bilirubin Total 0.5 mg/dL (0.0-1.0); Blood Urea Nitrogen 10 mg/dL (9-16); Calcium 9.2 mg/dL (8.4-10.2); Carbon Dioxide 23 mmol/L (22-29); Chloride 105 mmol/L (96-108); Cholesterol 175 mg/dL (<200); Estimated Glomerular Filt Rate > 60; Glucose Fasting 83 mg/dL (60-99); HDL Cholesterol 50 mg/dL (>40); LDL Cholesterol Calculated 90 mg/dL (<100); Potassium 3.8 mmol/L (3.3-5.1); Sodium 138 mmol/L (135-145); Triglycerides 179 mg/dL (<150)
[2023-03-06 11:11] LABS: Appearance Urine Cloudy; Color Urine Yellow; Glucose Urine UA Negative (Negative); Leukocyte Esterase Urine Large (3+) (Negative); Nitrite Urine Negative (Negative); Specific Gravity - Urine 1.015 (1.005-1.025); UMIC TRIGGER UA YES; Urine Blood Moderate (2+) (Negative); Urine Ketones Negative (Negative); Urine Protein Negative (Neg-Trace)
[2023-03-06 11:18] LABS: Bacteria Urine None Seen (None Seen); Hyaline Casts Urine 0-2 /LPF (0-2); WBC Urine >50 /HPF (0-5)
== END ==
LOC: HO.CARD 09:27
PROVIDERS: Absent Provider Urology; PCP Internal Medicine; Visit Provider Internal Medicine
DX: Z00.00 Encounter for general adult medical examination without abnormal findings (principal); R00.0 Tachycardia, unspecified; N39.0 Urinary tract infection, site not specified
CPT/HCPCS: 36415; 80053; 80061; 81001; 87086; 93005

== ENCOUNTER → 2023-03-06 09:31 | Outpatient (BNV) | payer MEDICARE, MEDICAID, SELFPAY | PROVIDERS: Absent Provider Urology; PCP Internal Medicine; Visit Provider Internal Medicine Cardiovascular Disease | DX: R00.0 Tachycardia, unspecified (principal) | CPT/HCPCS: 93010 ==

== ENCOUNTER 2023-07-14 10:21 | Outpatient (AMB) | payer MEDICARE, MEDICAID, SELFPAY ==
[2023-07-14 10:35] VITALS: BP 116/74; PULSE 88; O2SAT 98; BMI 32.3
--- NOTE | 2023-07-14 10:35 | A.OFFVIS_ITS ---
Vital Signs 07/14/23 10:35 Height 4 ft 8 in Weight 143 lb 15.39 oz BMI 32.3 BP 116/74 Blood Pressure Location Rt brachial Position Sitting Pulse 88 Pulse Source Pulse Oximeter Pulse Oximetry (%) 98 Oxygen Delivery Method Room Air Intake Visit Reasons: erosive osteoarthritis Intake Note: Patient last seen 07/18/22 presents today for 1 year follow up. Reports pain in lower back and hands. Equipment Detailer Required: No Accompanied by: Self / Same As Patient Allergies No Known Allergies Allergy (Verified 07/14/23 10:41) Medication List - Last Reconciled 07/14/23 by Efren Zambrano MD albuterol sulfate 90 mcg/actuation 0 mcg inhalation cholestyramine (with sugar) 4 gram 1 ea PO DAILY 30 days cholestyramine-aspartame 4 gram (Cholestyramine Light) 4 grams PO DAILY 60 days cyclosporine 0.05% 1 drp ophthalmic (eye) BID 30 days gabapentin 600 mg PO TID 30 days montelukast (Singulair) 10 mg PO DAILY 90 days pantoprazole 40 mg PO DAILY 90 days phenazopyridine (Pyridium) 100 mg PO TID PRN 5 days pyridoxine (vitamin B6) 100 mg PO DAILY valacyclovir 1,000 mg PO DAILY 90 days HPI Comments Details: 47-year-old female with bilateral hand erosive OA who presents for follow-up. She was last seen by Tiarra Roman 06/2022. She states that she is doing about the same overall. Continues to have intermittent flare-ups of pain in her f ingers and the base of her thumbs. She takes Tylenol as needed for those flare- ups. She would take Tylenol for 2-3 days in a row to 4 times a month. She also applies Voltaren gel intermittently at the base of her right thumb. Recently she has been having lower back pain. She does not recall any trauma. She states that she did physical therapy for her lower back in the past and she knows all the exercises. She has not interested in going back. [facility]LY [facility], [facility] Medical History Colon adenomas Renal calculi Hearing loss, bilateral Medicare annual wellness visit, initial Abdominal pain Hearing loss Obese Asthma GERD (gastroesophageal reflux disease) Scoliosis Carpal tunnel syndrome Fibromyalgia Surgical History Hx of colonoscopy History of esophagogastroduodenoscopy (EGD) History of intestinal surgery History of dilation and curettage Hx of appendectomy Hx of section Family History Mother HTN (hypertension) Diverticulitis Father Diabetes Social History Housing: Apartment Alcohol intake: current Alcohol intake frequency: does not drink Alcohol type: beer and wine Patient Tobacco Use Status: Former Tobacco user Tobacco use type: Cigarette e-Cigarette/Vaping Use: Never Used Second Hand Smoke Exposure: No service: No Current occupational status: employed 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 Current occupational exposures/hazards: No Cognitive needs: No Hearing needs: No Vision needs: Yes Review of Systems Musc Reports back pain, Reports arthralgias and Reports stiffness Physical Exam Vital Signs: Last Vital Signs Pulse 88 07/14/23 10:35 BP 116/74 07/14/23 10:35 Pulse Ox 98 07/14/23 10:35 Oxygen Delivery Method Room Air 07/14/23 10:35 BMI result Body Mass Index 32.3 Const General: cooperative, healthy appearing and comfortable Nutritional Appearance: obese Orientation/consciousness: patient oriented x3 Limitations: no limitations HEENT Head: Yes normocephalic and Yes atraumatic Mouth: moist mucous membranes Resp Effort & Inspection: normal respiratory effort and able to speak in complete sentences Auscultation: clear to auscultation bilaterally Cardio Rate: regular rate Rhythm: regular rhythm Skin General skin exam: no rashes or lesions noted Neuro General: patient oriented x3 Extrem Other: Osteoarthritic changes of both hands with prominent Heberden's nodes few are mildly tender Tenderness at the base of right 1st CMC joint Normal bilateral hand mid level business analyst strength Assessment & Plan Assessment & Plan (1) Erosive osteoarthritis of both hands: Comment: Confirmed by x-ray October 2021 Code(s): M15.4 - Erosive (osteo)arthritis Category: Medical Plan: This is a 47-year-old female with bilateral hand erosive osteoarthritis who presents for follow-up. Symptoms are reasonably well controlled with as needed Tylenol for a few days 3 to 4 times a month. Advised patient to apply Voltaren gel as needed. Follow-up in 1 year Plan I spent 15 minutes reviewing patient's chart, evaluating patient, counseling patient and documenting in the chart Coding Level of Care Code Est Pt Level 3 (97671) Diagnoses Erosive osteoarthritis of both hands M15.4
== END 2023-07-14 10:53 | disposition home or self-care (01) ==
PROVIDERS: PCP Internal Medicine; Visit Provider Student in an Organized Health Care Education/Training Program
DX: M15.4 Erosive (osteo)arthritis (principal)
CPT/HCPCS: 99213

== ENCOUNTER → 2023-07-14 10:21 | Outpatient (BNVA) | payer MEDICARE, MEDICAID, SELFPAY | PROVIDERS: PCP Internal Medicine; Visit Provider Student in an Organized Health Care Education/Training Program | DX: M15.4 Erosive (osteo)arthritis (principal) | CPT/HCPCS: 99212 ==

== ENCOUNTER 2023-09-18 12:36 | Outpatient (AMB) | payer MEDICARE, MEDICAID, SELFPAY ==
[2023-09-18 12:42] VITALS: BP 120/70; PULSE 94; O2SAT 98; BMI 32.9
--- NOTE | 2023-09-18 12:42 | MHC.OFFVIS ---
Vital Signs 09/18/23 12:42 Height 4 ft 8 in Weight 146 lb 13.246 oz BMI 32.9 BP 120/70 Blood Pressure Location Rt brachial Pulse 94 Pulse Source Pulse Oximeter Pulse Oximetry (%) 98 Oxygen Delivery Method Room Air Intake Visit Reasons: joint pain Intake Note: Patient is here today for joint pain. Last seen 07/14/2023. Accompanied by: Friend Allergies No Known Allergies Allergy (Verified 09/18/23 12:44) Medication List - Last Reconciled 09/18/23 by Efren Zambrano MD albuterol sulfate 90 mcg/actuation 0 mcg inhalation cholestyramine (with sugar) 4 gram 1 ea PO DAILY 30 days cholestyramine-aspartame 4 gram (Cholestyramine Light) 4 grams PO DAILY 60 days cyclosporine 0.05% 1 drp ophthalmic (eye) BID 30 days gabapentin 600 mg PO TID 30 days montelukast (Singulair) 10 mg PO DAILY 90 days pantoprazole 40 mg PO DAILY 90 days phenazopyridine (Pyridium) 100 mg PO TID PRN 5 days pyridoxine (vitamin B6) 100 mg PO DAILY valacyclovir 1,000 mg PO DAILY 90 days HPI Comments Details: 47-year-old female with bilateral hand erosive OA who presents for an urgent visit. Over the last 2 days she has been having pain on the ulnar aspect of her left wrist. She can barely move her left hand due to pain. She denies any recent trauma or overuse. Has any recent infections. She has been taking Tylenol well as Advil and Aleve multiple times a day without much relief. She has been using a wrist brace as well [facility] Medical History Colon adenomas Renal calculi Hearing loss, bilateral Medicare annual wellness visit, initial Abdominal pain Hearing loss Obese Asthma GERD (gastroesophageal reflux disease) Scoliosis Carpal tunnel syndrome Fibromyalgia Surgical History H/O: hysterectomy Hx of colonoscopy History of esophagogastroduodenoscopy (EGD) History of intestinal surgery History of dilation and curettage Hx of appendectomy Hx of section Family History Mother HTN (hypertension) Diverticulitis Father Diabetes Social History Housing: Apartment Alcohol intake: current Alcohol intake frequency: does not drink Alcohol type: beer and wine Patient Tobacco Use Status: Former Tobacco user Tobacco use type: Cigarette e-Cigarette/Vaping Use: Never Used Second Hand Smoke Exposure: No service: No Current occupational status: employed 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 Current occupational exposures/hazards: No Cognitive needs: No Hearing needs: No Vision needs: Yes Review of Systems Musc Reports arthralgias, Reports joint swelling, Reports limited range of motion and Reports stiffness Physical Exam Vital Signs: Last Vital Signs Pulse 94 09/18/23 12:42 BP 120/70 09/18/23 12:42 Pulse Ox 98 09/18/23 12:42 Oxygen Delivery Method Room Air 09/18/23 12:42 BMI result Body Mass Index 32.9 Const General: cooperative, healthy appearing and comfortable Nutritional Appearance: obese Orientation/consciousness: patient oriented x3 Limitations: no limitations HEENT Head: Yes normocephalic and Yes atraumatic Resp Effort & Inspection: normal respiratory effort and able to speak in complete sentences Cardio Rate: regular rate Rhythm: regular rhythm Skin General skin exam: no rashes or lesions noted Neuro General: patient oriented x3 Extrem Other: Osteoarthritic changes of both hands with prominent Heberden's nodes few are mildly tender Tenderness at the base of right 1st CMC joint Patient was wearing a left wrist brace Swelling and tenderness on the ulnar aspect of the left wrist No significant left ulnar styloid swelling or tenderness Negative Davion's test bilaterally Assessment & Plan Assessment & Plan (1) Erosive osteoarthritis of both hands: Comment: Confirmed by x-ray October 2021 Code(s): M15.4 - Erosive (osteo)arthritis Category: Medical Plan: This is a 47-year-old female with bilateral hand erosive osteoarthritis who presents for an urgent visit. She has been having pain and swelling on the ulnar aspect of her left wrist On exam has swelling and tenderness in this area, likely overuse tendonitis Patient has been using Tylenol and NSAIDs without much relief. Will prescribe a Medrol Dosepak. Advised patient to continue use the wrist brace, to rest the hand, use [id number] Voltaren gel, ice the area. Advised patient not to use NSAIDs while taking Medrol pack Advised patient that if she does not improve in 2-3 weeks, call our office and I will refer her to hand surgery Plan I spent 15 minutes reviewing patient's chart, evaluating patient, counseling patient and documenting in the chart Medications: New methylprednisolone (Medrol (Dexter)) PO PER PKG DIR 21 ea 0RF Coding Level of Care Code Est Pt Level 3 (01791) Diagnoses Erosive osteoarthritis of both hands M15.4
== END 2023-09-18 13:06 | disposition home or self-care (01) ==
PROVIDERS: PCP Internal Medicine; Visit Provider Student in an Organized Health Care Education/Training Program
DX: M15.4 Erosive (osteo)arthritis (principal)
CPT/HCPCS: 99213

== ENCOUNTER → 2023-09-18 12:36 | Outpatient (BNVA) | payer MEDICARE, MEDICAID, SELFPAY | PROVIDERS: PCP Internal Medicine; Visit Provider Student in an Organized Health Care Education/Training Program | DX: M15.4 Erosive (osteo)arthritis (principal) | CPT/HCPCS: 99212 ==

== ENCOUNTER 2023-12-12 11:21 | Outpatient (REF) | payer MEDICARE, MEDICAID, SELFPAY ==
--- NOTE | ~2023-12-12 | US_ITS ---
EXAMINATION: US RETROPERITONEAL LIMITED (RENAL ONLY) CLINICAL INFORMATION: Urinary tract infection, site not specified. COMPARISON: Renal ultrasound 12/09/2022 and 11/06/2021. Correlated to CT abdomen and pelvis 11/26/2022. TECHNIQUE: Real-time imaging of the kidneys using grayscale and color Doppler technique. FINDINGS: Submitted for interpretation on January 29, 2024. RIGHT KIDNEY: 12 x 5 x 5 cm (SAG x AP x TRV). Normal echotexture. Renal cortical thickness is normal. No solid or cystic lesion.No hydronephrosis. Questionable 2 mm hyperechoic lesion in the upper pole of the pelvicalyceal system. Normal flow on color Doppler interrogation of the renal hilum LEFT KIDNEY: 13 x 5 x 5 cm (SAG x AP x TRV). Normal echotexture. Renal cortical thickness is normal. No solid or cystic lesion. No hydronephrosis. Normal flow on color Doppler interrogation of the renal hilum. US/US renal BI IMPRESSION: No hydronephrosis. Questionable 2 mm nonobstructing calculus, right kidney.. Electronically signed by: Rico Trejo MD 01/29/2024 08:42 AM EST
== END 2023-12-12 11:22 | disposition home or self-care (01) ==
LOC: HO.US 11:21
PROVIDERS: PCP Internal Medicine; Visit Provider Urology
DX: N20.0 Calculus of kidney (principal); N39.0 Urinary tract infection, site not specified
CPT/HCPCS: 76775

== ENCOUNTER → 2023-12-12 11:23 | Outpatient (BNV) | payer MEDICARE, MEDICAID, SELFPAY | PROVIDERS: PCP Internal Medicine; Visit Provider Radiology Diagnostic Radiology | DX: N39.0 Urinary tract infection, site not specified (principal); N20.0 Calculus of kidney | CPT/HCPCS: 76775 ==

== ENCOUNTER 2023-12-26 09:54 | Outpatient (AMB) | payer MEDICARE, MEDICAID, SELFPAY ==
--- NOTE | 2023-12-26 10:04 | A.OFFVIS_ITS ---
Intake Visit Reasons: 1y/US(US Pending) Intake Note: Patient presents today for a 1 yr follow-up US Meds- VITAMIN B6 Allergies to Antibiotic- No Known Allergies Blood Thinner- None Store Lead Required: No Accompanied by: Self / Same As Patient Allergies No Known Allergies Allergy (Verified 12/26/23 10:08) Medication List - Last Reconciled 12/27/23 by Paola Quintanilla MD albuterol sulfate 90 mcg/actuation 0 mcg inhalation cetirizine (All Day Allergy (cetirizine)) 10 mg PO DAILY PRN 30 days cholestyramine (with sugar) 4 gram 1 ea PO DAILY 30 days cholestyramine-aspartame 4 gram (Cholestyramine Light) 4 grams PO DAILY 60 days cyclosporine 0.05% 1 drp ophthalmic (eye) BID 30 days gabapentin 600 mg PO TID 30 days methylprednisolone (Medrol (Dexter)) PO PER PKG DIR montelukast (Singulair) 10 mg PO DAILY 90 days pantoprazole 40 mg PO DAILY 90 days pyridoxine (vitamin B6) 100 mg PO DAILY valacyclovir 1,000 mg PO DAILY 90 days HPI Comments Details: Brenda is a 48-year-old female who presents today to the office for a follow-u p. Reviewed films Renal US 12/12/23- possible new renal calculus. burner tender pending. She denies hematuria, states she has back pain but not sure if it is due to her fibromyalgia or kidney stones. Plan fu in [address] stone protocol. Review of chart: 12/27/2022?She is followed today for renal US results. She was seen in ER on 11/26/2022 for left flank pain and dysuria. She has had urine culture sent in ER which came back positive for E.coli. She was treated with abx's and states she is doing better. She states that she is drinking adequate amount of fluids. I reviewed the CAT scan results from 11/26/2022 which was negative urolithiasis. I reviewed the renal US 12/09/22 - kidneys WNL. 12/27/2022: Evaluation today?UA? leukocytes: negative; blood: negative. Plan: Vitamin B6 100 mg daily was ordered. Follow-up in one year renal US prior. [facility] Medical History Colon adenomas Renal calculi Hearing loss, bilateral Medicare annual wellness visit, initial Abdominal pain Hearing loss Obese Asthma GERD (gastroesophageal reflux disease) Scoliosis Carpal tunnel syndrome Fibromyalgia Surgical History H/O: hysterectomy Hx of colonoscopy History of esophagogastroduodenoscopy (EGD) History of intestinal surgery History of dilation and curettage Hx of appendectomy Hx of section Family History Mother HTN (hypertension) Diverticulitis Father Diabetes Social History Housing: Apartment Alcohol intake: current Alcohol intake frequency: does not drink Alcohol type: beer and wine Patient Tobacco Use Status: Former Tobacco user Tobacco use type: Cigarette e-Cigarette/Vaping Use: Never Used Second Hand Smoke Exposure: No service: No Current occupational status: employed 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 Current occupational exposures/hazards: No Cognitive needs: No Hearing needs: No Vision needs: Yes Review of Systems Const All systems reviewed & are unremarkable except as noted in HPI and below Reports no additional complaints Eyes Reports no additional complaints ENT Reports no additional complaints Card Reports no additional complaints Resp Reports no additional complaints GI Reports no additional complaints Reports as per HPI Musc Reports no additional complaints Skin/Breast Reports system reviewed and no additional complaints, except as documented Neuro Reports no additional complaints Psych Reports no additional complaints Endo Reports no additional complaints Parminder/Lymph Reports no additional complaints Aller/Immun Reports no additional complaints Results AMB Urinalysis, Automated UA Leukoctes 0 Bry/uL Last Edit by WILBERT Thompson on 12/26/23 10:47 UA Nitrite Last Edit by WILBERT Thompson on 12/26/23 10:47 UA Urobilinogen 0.2 mg/dL Last Edit by WILBERT Thompson on 12/26/23 10:4 7 UA Protein 0 mg/dL Last Edit by WILBERT Thompson on 12/26/23 10:47 UA pH 6.0 Last Edit by Mohit Lambert CCM on 12/26/23 10:47 UA Blood 0 Leonard/uL Last Edit by Mohit Lambert CCM on 12/26/23 10:47 UA Specific [place] 1.015 Last Edit by Mohit Lambert CCM on 12/26/23 10: 47 UA Ketone Negative Last Edit by Mohit Lambert CCM on 12/26/23 10:47 UA Bilirubin 0 mg/dL Last Edit by Mohit Lambert CCM on 12/26/23 10:47 UA Glucose 0 mg/dL Last Edit by WILBERT Thompson on 12/26/23 10:47 Results Reviewed Results Reviewed: Laboratory Last Values Urine pH (Auto) 6.0 12/26/23 10:47 Specific [place] (Auto) 1.015 12/26/23 10:47 Urine Protein (Auto) 0 mg/dL 12/26/23 10:47 Glucose (UA)(Auto) 0 mg/dL 12/26/23 10:47 Urine Ketones (Auto) Negative 12/26/23 10:47 Urine Blood (Auto) 0 Leonard/uL 12/26/23 10:47 Urine Bilirubin (Auto) 0 mg/dL 12/26/23 10:47 Urine Urobilinogen (Auto) 0.2 mg/dL 12/26/23 10:47 Leukocyte Esterase (Auto) 0 Bry/uL 12/26/23 10:47 Reviewed films Renal US 12/12/23- possible new renal calculus. burner tender pending. Date of Service: 12/09/22 EXAMINATION: US RETROPERITONEAL LIMITED (RENAL ONLY) CLINICAL INFORMATION: Calculus of kidney. COMPARISON: CT abdomen and pelvis 11/26/2022. Renal ultrasound 11/06/2021 and 06/14/2021. FINDINGS: RIGHT KIDNEY: 10.8 x 4.4 x 4.1 cm (SAG x AP x TRV). No hydronephrosis. No renal calculi. Renal cortical thickness is normal. Limited visualization. LEFT KIDNEY: 12.3 x 5.3 x 4.9 cm (SAG x AP x TRV). No hydronephrosis. No renal calculi. Renal cortical thickness is normal. Limited visualization. IMPRESSION: No hydronephrosis. No renal calculi. Renal cortical thickness is normal. Limited visualization. Date of Service: 11/26/22 EXAMINATION: CT ABDOMEN AND PELVIS WITHOUT CONTRAST CLINICAL INFORMATION: Left lower quadrant pain. Left flank pain. COMPARISON: Renal ultrasound November 06, 2021 FINDINGS: Visualized lung bases demonstrate mild dependent atelectasis. The liver is normal in size but demonstrates diffusely decreased attenuation. The gallbladder is normal in appearance. The pancreas, spleen and adrenal glands are unremarkable. Symmetrically sized kidneys. No renal calculi or hydronephrosis of either kidney. Normal caliber loops of small and large bowel. Unremarkable anastomotic suture line of the sigmoid colon. There is overall moderate stool burden throughout the majority the colon. The appendix is surgically absent. Normal caliber abdominal aorta. No retroperitoneal lymphadenopathy. Tiny fat-containing umbilical hernia in addition to a subcentimeter fat- containing supraumbilical hernia. The bladder is normal in appearance. Unremarkable CT appearance of the uterus. No gross free pelvic fluid. No inguinal lymphadenopathy. No acute osseous abnormality. IMPRESSION: -Moderate stool burden throughout the colon suggesting constipation. -Diffusely decreased liver attenuation suggesting hepatic steatosis. Correlation with liver enzymes recommended Assessment & Plan Assessment & Plan (1) Renal calculi: Code(s): N20.0 - Calculus of kidney Category: Medical Plan Plan fu in [address] stone protocol. Vitamin B6 100 mg daily Orders: Orders AMB Urinalysis Automated 12/26/23 Z13.9 - Encounter for screening, unspecified CT kidney stone 5 Months N20.0 - Calculus of kidney Patient Instructions: The patient had an opportunity to ask questions regarding treatment plan. The patient expressed understanding and agreement with the above treatment plan. The patient is aware they should contact our office by phone for worsening of their current condition or the appearance of new symptoms. Compliance is encouraged with any medications and followup testing that is ordered. It is a privilege to be allowed the opportunity to participate in the urologic care of your patient. If you have any questions or concerns regarding treatment for the above conditions please do not hesitate to contact me. The office telephone contact is [phone]. This note is constructed in part using voice recognition software. While every effort has been made to ensure accuracy burner tender errors may have been included. Yours sincerely, Paola Quintanilla MD Coding Level of Care Code Est Pt Level 4 (51995) Diagnoses Renal calculi N20.0
== END 2023-12-26 10:41 | disposition home or self-care (01) ==
LOC: HO.HUSH 09:55
PROVIDERS: PCP Internal Medicine; Visit Provider Urology
DX: Z13.9 Encounter for screening, unspecified (principal)
CPT/HCPCS: 99214

== ENCOUNTER → 2023-12-26 09:54 | Outpatient (BNVA) | payer MEDICARE, MEDICAID, SELFPAY | PROVIDERS: PCP Internal Medicine; Visit Provider Urology | DX: N20.0 Calculus of kidney (principal) | CPT/HCPCS: 81003; 99212 ==

== ENCOUNTER 2023-12-30 13:40 | Outpatient (AMB) | payer MEDICARE, MEDICAID, SELFPAY ==
--- NOTE | 2023-12-30 13:48 | A.OFFVIS_ITS ---
Vital Signs 12/30/23 13:51 Height 4 ft 8 in Weight 144 lb 13.499 oz BMI 32.5 BP 112/60 Blood Pressure Location Lt brachial Position Sitting Pulse 91 Pulse Source Pulse Oximeter Pulse Oximetry (%) 95 Oxygen Delivery Method Room Air Intake Visit Reasons: Hand Pain/CM Intake Note: Patient presents for Hand pain. Allergies No Known Allergies Allergy (Verified 12/30/23 13:51) Medication List - Last Reconciled 12/30/23 by Efren Zambrano MD albuterol sulfate 90 mcg/actuation 0 mcg inhalation cetirizine (All Day Allergy (cetirizine)) 10 mg PO DAILY PRN 30 days cholestyramine (with sugar) 4 gram 1 ea PO DAILY 30 days cholestyramine-aspartame 4 gram (Cholestyramine Light) 4 grams PO DAILY 60 days cyclosporine 0.05% 1 drp ophthalmic (eye) BID 30 days gabapentin 600 mg PO TID 30 days montelukast (Singulair) 10 mg PO DAILY 90 days pantoprazole 40 mg PO DAILY 90 days pyridoxine (vitamin B6) 100 mg PO DAILY valacyclovir 1,000 mg PO DAILY 90 days HPI Comments Details: 48-year-old female with bilateral hand erosive OA who presents follow-up. The pain and swelling over her left ulnar styloid last visit has resolved with Medrol Dosepak. She states that has been feeling that her hands go to sleep especially at night. She has wrist splints and wear them nightly. She also has pain in her fingers. She takes Tylenol 3 times a day. [facility] Medical History Colon adenomas Renal calculi Hearing loss, bilateral Medicare annual wellness visit, initial Abdominal pain Hearing loss Obese Asthma GERD (gastroesophageal reflux disease) Scoliosis Carpal tunnel syndrome Fibromyalgia Surgical History H/O: hysterectomy Hx of colonoscopy History of esophagogastroduodenoscopy (EGD) History of intestinal surgery History of dilation and curettage Hx of appendectomy Hx of section Family History Mother HTN (hypertension) Diverticulitis Father Diabetes Maternal Aunt Guillain-Edwards syndrome Social History Housing: Apartment Alcohol intake: current Alcohol intake frequency: does not drink Alcohol type: beer and wine Patient Tobacco Use Status: Former Tobacco user Tobacco use type: Cigarette e-Cigarette/Vaping Use: Never Used Second Hand Smoke Exposure: No service: No Current occupational status: employed 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 Current occupational exposures/hazards: No Cognitive needs: No Hearing needs: No Vision needs: Yes Review of Systems Musc Reports arthralgias, Reports limited range of motion, Reports numbness and Reports tingling Neuro Reports numbness and Reports tingling Physical Exam Vital Signs: Last Vital Signs Pulse 91 12/30/23 13:51 BP 112/60 12/30/23 13:51 Pulse Ox 95 12/30/23 13:51 Oxygen Delivery Method Room Air 12/30/23 13:51 BMI result Body Mass Index 32.5 Const General: cooperative, healthy appearing and comfortable Nutritional Appearance: obese Orientation/consciousness: patient oriented x3 Limitations: no limitations HEENT Head: Yes normocephalic and Yes atraumatic Resp Effort & Inspection: normal respiratory effort and able to speak in complete sentences Cardio Rate: regular rate Rhythm: regular rhythm Skin General skin exam: no rashes or lesions noted Neuro General: patient oriented x3 Extrem Other: Osteoarthritic changes of both hands with prominent Heberden's nodes few are mildly tender Tenderness at the base of right 1st CMC joint Swelling and tenderness over the left ulnar styloid resolved Positive Tinel sign on the right Negative on the left Positive Durkan's test on the left Assessment & Plan Assessment & Plan (1) Bilateral hand numbness: Code(s): R20.0 - Anesthesia of skin Category: Medical Plan: Ordered EMG/NCV. If positive I will refer patient to hand surgeon Follow-up in 6 months Plan I spent 15 minutes reviewing patient's chart, evaluating patient, ordering diagnostic workup, counseling patient and documenting in the chart Orders: Orders NE electromyogram (EMG) Today R20.0 - Anesthesia of skin Medications: Discontinued methylprednisolone (Medrol (Dexter)) Discontinued Reason: Patient no longer taking PO PER PKG DIR 21 ea 0RF Coding Level of Care Code Est Pt Level 3 (82381) Diagnoses Bilateral hand numbness R20.0
[2023-12-30 13:51] VITALS: BP 112/60; PULSE 91; O2SAT 95; BMI 32.5
== END 2023-12-30 14:08 | disposition home or self-care (01) ==
LOC: HO.RHE 13:41
PROVIDERS: PCP Internal Medicine; Visit Provider Student in an Organized Health Care Education/Training Program
DX: R20.0 Anesthesia of skin (principal)
CPT/HCPCS: 99213

== ENCOUNTER → 2023-12-30 13:40 | Outpatient (BNVA) | payer MEDICARE, MEDICAID, SELFPAY | PROVIDERS: PCP Internal Medicine; Visit Provider Student in an Organized Health Care Education/Training Program | DX: R20.0 Anesthesia of skin (principal); M15.4 Erosive (osteo)arthritis | CPT/HCPCS: 99212 ==

== ENCOUNTER 2024-01-08 11:37 | Outpatient (REF) | payer MEDICARE, MEDICAID, SELFPAY ==
[2024-01-08 11:58] LABS: MANUAL DIFF FLAG NO
[2024-01-08 12:16] LABS: Appearance Urine Cloudy; Color Urine Yellow; Glucose Urine UA Negative (Negative); Leukocyte Esterase Urine Negative (Negative); Nitrite Urine Negative (Negative); PH 6.5 (5.0-9.0); Specific Gravity - Urine >= 1.030 (1.005-1.025); Urine Blood Negative (Negative); Urine Ketones Trace mg/dL (Negative); Urine Protein Trace mg/dL (Neg-Trace)
[2024-01-08 12:16] LABS: Basophils Percent Auto 0.4 % (0-2); Eosinophils Absolute Auto 0.4 X10*3/uL (0.0-0.4); Eosinophils Percent Auto 4.6 % (0-4); Hematocrit 36.4 % (37.0-47.0); Hemoglobin 12.2 g/dl (12.0-16.0); Imm Gran Abs Auto 0.04 X10*3/uL (0.00-0.03); Imm Gran Pct Auto 0.5 % (0.0-0.4); Lymphocytes Absolute Auto 1.9 X10*3/uL (1.2-4.9); Mean Corpuscular HGB Conc 33.5 g/dl (31.0-35.0); Mean Corpuscular Hemoglobin 30.1 pg (27.0-33.0); Mean Corpuscular Volume 89.9 fL (80.0-98.0); Mean Platelet Volume 10.9 fL (9.4-12.3); Monocytes Absolute Auto 0.7 X10*3/uL (0.1-1.2); Neutrophils Absolute Auto 5.1 x10*3/uL (2.0-8.3); Neutrophils Percent Auto 62.5 % (45-73); Platelet Count 219 X10*3/uL (160-400); Red Blood Count 4.05 X10*6/uL (4.20-5.50); Red Cell Distribution Width 13.8 % (11.0-16.0); White Blood Count 8.2 X10*3/uL (4.8-10.8)
[2024-01-08 12:38] LABS: Alanine Aminotransferase 28 U/L (0-31); Albumin Level 3.9 g/dL (3.5-5.0); Alkaline Phosphatase 71 U/L (39-117); Anion Gap 6 (12-20); Aspartate Amino Transferase 20 U/L (5-31); Bilirubin Total 0.3 mg/dL (0.0-1.0); Blood Urea Nitrogen 9 mg/dL (9-16); Calcium 8.6 mg/dL (8.4-10.2); Carbon Dioxide 29 mmol/L (22-29); Chloride 108 mmol/L (96-108); Estimated Glomerular Filt Rate > 60; Glucose Random 114 mg/dL (60-115); Potassium 3.8 mmol/L (3.3-5.1); Sodium 139 mmol/L (135-145); Total Protein 6.5 g/dL (6.5-8.0)
[2024-01-10 01:44] LABS: Lyme Abs Screen <0.90 index
== END 2024-01-08 11:38 | disposition home or self-care (01) ==
LOC: HO.LAB 11:37
PROVIDERS: PCP Internal Medicine; Visit Provider Internal Medicine
DX: R50.9 Fever, unspecified (principal); R30.0 Dysuria
CPT/HCPCS: 36415; 80053; 81003; 85025; 86617; 86618

== ENCOUNTER 2024-01-20 05:35 | Outpatient (REF) | payer MEDICARE, MEDICAID, SELFPAY ==
--- NOTE | 2024-01-20 05:37 | EMG_ITS ---
Bilateral median and ulnar motor and sensory studies were performed. Bilateral radial and median and lateral antecubital brachial sensory studies were performed and needle examination was performed. IMPRESSION: This is an unremarkable study with no evidence of entrapment neuropathy or radiculopathy. MD JAIME Perez/MARY / [id number]
== END 2024-01-20 05:36 | disposition home or self-care (01) ==
LOC: HO.NEURO 05:35
PROVIDERS: PCP Internal Medicine; Visit Provider Student in an Organized Health Care Education/Training Program
DX: R20.0 Anesthesia of skin (principal)
CPT/HCPCS: 95886; 95913

== ENCOUNTER 2024-02-11 10:59 | Outpatient (AMB) | payer MEDICARE, MEDICAID, SELFPAY ==
--- NOTE | 2024-02-11 11:01 | A.OFFPC_ITS ---
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 Required: No Accompanied by: Self / Same As Patient Allergies No Known Allergies Allergy (Verified 02/11/24 11:16) Medication List - Last Reconciled 02/11/24 by Shelia Perez MD albuterol sulfate 90 mcg/actuation 0 mcg inhalation cetirizine (All Day Allergy (cetirizine)) 10 mg PO DAILY PRN 30 days cholestyramine-aspartame 4 gram (Cholestyramine Light) 4 grams PO DAILY 60 days cyclosporine 0.05% 1 drp ophthalmic (eye) BID 30 days gabapentin 600 mg PO TID 30 days montelukast (Singulair) 10 mg PO DAILY 90 days pantoprazole 40 mg PO DAILY 90 days pyridoxine (vitamin B6) 100 mg PO DAILY valacyclovir 1,000 mg PO DAILY 90 days Tobacco use date assessed: 02/11/24 Dental Screening Dental Screen Date: 02/11/24 Did you have a dental visit in the last 12 months?: Yes Did you have a dental problem in the last 6 months where you did not have access to dental care?: No Was dental information given to patient?: Patient has dentist HPI HPI Comments History of Present Illness Details The patient is a 48-year-old female presenting for her physical exam. She underwent a hysterectomy this year due to severe uterine bleeding and intractable pain associated with menstruation. In June, a screening mammogram identified a benign breast mass, and follow-up with an ultrasound was advised six months later. The patient reports ongoing allergic rhinitis, with skin reactions aggravating from cold weather, requiring treatment with cetirizine and the occasional use of an inhaler due to frequent coughing and chest discomfort. Additionally, a colonoscopy in 2022 identified adenomatous polyps, prompting advice for repeat colonoscopy between 2025 and 2027. Lastly, she experiences gastrointestinal disturbances managed with cholestyramine. - Regular mammograms, with most recent c onducted in June - Scheduled colonoscopy follow-up recomm ended for 1716-5506 post adenoma detection - Utilization of cetirizine and inhaler for allergen control and respiratory distress - Dietary recommendations for weight man agement including specified portions of proteins and vegetables [facility] History Colon adenomas Renal calculi Hearing loss, bilateral Medicare annual wellness visit, initial Abdominal pain Hearing loss Obese Asthma GERD (gastroesophageal reflux disease) Scoliosis Carpal tunnel syndrome Fibromyalgia Surgical History H/O: hysterectomy Hx of colonoscopy History of esophagogastroduodenoscopy (EGD) History of intestinal surgery History of dilation and curettage Hx of appendectomy Hx of section Family History Mother HTN (hypertension) Diverticulitis Father Diabetes Maternal Aunt Guillain-Pocasset syndrome Social History (Updated 02/11/24 @ 11:21 by Shelia Perez MD) Housing: Apartment Alcohol intake: current Alcohol intake frequency: holidays/special occasions only Alcohol type: beer and wine Patient Tobacco Use Status: Former Tobacco user Tobacco use type: Cigarette e-Cigarette/Vaping Use: Never Used Second Hand Smoke Exposure: No service: No Current occupational status: employed 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 1. Little interest or pleasure in doing things: not at all 2. Feeling down, depressed, or hopeless: not at all 3. Trouble falling or staying asleep, or sleeping too much: not at all 4. Feeling tired or having little energy: several days 5. Poor appetite or overeating: not at all 6. Feeling bad about yourself - or that you are a failure or have let yourself or your family down: not at all 7. Trouble concentrating on things, such as reading the newspaper or watching television: not at all 8. Moving or speaking so slowly that other people could have noticed. Or the opposite - being so fidgety or restless that you have been moving around a lot more than usual: not at all 9. Thoughts that you would be better off or of hurting yourself in some way: not at all Total score: 1 Depression Screening Interpretation: Negative Depression Screening Done: Yes 75760 - PHQ-9 Billing: Yes Source: Developed by Drs. Srinivasa Lindsay, Keyona Ambrose, Josse Ruiz and colleagues, with an educational mira from [employer]. Thrive Questionnaire Date Thrive assessed: 02/02/24 I am a: Patient What is your living situation today?: I have a steady place to live Within the past 12 months, did the food you bought not last and you didn't have the money to get more?: Never true Within the past 12 months, did you worry whether your food would run out before you got money to buy more?: Never true Do you have trouble paying for medicines?: No Do you have trouble getting transportation to medical appointments?: No Do you have trouble paying your heating and electricity bill?: No Do you have trouble taking care of your child, family member or friend?: No Do you have trouble with day-to-day activities such as bathing, preparing meals, shopping, managing finances, etc.?: No Are you currently unemployed and looking for a job?: No Are you interested in more education?: Yes Please select the resources that you would like help with: None Currently or been in a relationship where the following occur: No concerns reported THRIVE Score: 0 AUDIT C Alcohol Use Questionnaire (AUDIT-C) 1. How often do you have a drink containing alcohol?: Monthly or less 2. How many drinks containing alcohol do you have on a typical day when you are drinking?: 1 or 2 3. How often do you have six or more drinks on one occasion?: Never Total Score: 1 Score Reviewed/Action Taken: No RENATO-7 AMB Questionnaire RENATO-7 Date RENATO - 7 assessed: 02/11/24 Feeling nervous, anxious, or on edge: 0 = Not at all Not being able to stop or control worryin = Not at all Worrying too much about different things: 0 = Not at all Trouble relaxin = Not at all Being so restless that it is hard to sit still: 0 = Not at all Becoming easily annoyed or irritable: 0 = Not at all Feeling afraid as if something awful might happen: 0 = Not at all Total RENATO-7 score (0-4 normal; 5-9 mild; 10-14 moderate; 15-21 severe): 0 Source: Developed by Drs. Srinivasa Lindsay, Keyona Ambrose, Josse Ruiz and colleagues, with an educational mira from [employer]. RENATO-7 Assessment Billing RENATO-7 Assessment Tool: RENATO-7 Assessment 13600 Review of Systems Const Details: - Respiratory: Reports frequent coughing, occasional chest discomfort - Skin: Reports allergic reactions to skin, worsened in cold weather Physical exam (Primary Care) Vital Signs: Last Vital Signs BP 120/80 02/11/24 11:02 BMI result Body Mass Index 31.8 BMI Assessment/Plan discussion: High BMI High, discussed plan: lifestyle, weight reduction, dietary and physical activity Tobacco/Smoking Status: Tobacco use Status Tobacco use date assessed 02/11/24 02/11/24 11:08 Patient Tobacco Use Status Former Tobacco user 02/11/24 11:21 Tobacco use type Cigarette 02/11/24 11:21 e-Cigarette/Vaping Use Never Used 02/11/24 11:21 PHQ-9: PHQ-9 Score PHQ-9: Total score 1 02/11/24 11:21 Depression Screening Interpretation: Negative Thrive Assessment: Date of Thrive Assessment Date Thrive assessed 02/02/24 02/11/24 11:08 Currently or been in a relationship where the following occur: No concerns reported Const Other: General: Cooperative, healthy appearing, comfortable, no acute distress and well developed Orientation: Patient oriented x3 Limitations: No limitations Head: Normal to inspection Ears: Hearing grossly normal bilaterally Nose: Normal external nose present Face and sinus: Normal facial exam Eyes: Appearance normal, both eyes and all related structures Neck: Normal visual inspection and Yes full ROM Respiratory: Normal respiratory effort and able to speak in complete sentences. Clear to auscultation bilaterally Cardiovascular: Regular rate and rhythm. Normal S1 and S2. Murmur noted GI: Normal to inspection. Soft to palpation and nontender Skin: No rashes or lesions noted. Reports skin allergies with cold Neuro: Patient oriented x3 Extremities: Normal to inspection Office Procedures Flu Questionnaire Does the patient have a severe egg allergy?: No Immunizations Fluarix Triv [id number] (PF) 45 mcg (15 mcg x 3)/0.5 mL IM syringe Performing Provider: Shelia Perez MD [facility] Documented (not given) by: EULALIA Aguilar on 02/11/24 11:08 Reason Not Given: Patient Refused Coding Level of Care Code Est Pt Level 3 (57463) Est Pt Prev Care 40-64y(43107) Diagnoses Physical exam Z00.00 Systolic murmur R01.1 Eczema L30.9 Allergic rhinitis J30.9 Mild persistent asthma without complication J45.30 Asthma severity: mild Asthma persistence: persistent Asthma complication type: uncomplicated Additional Codes RENATO-7 Assessment Billing - RENATO-7 Assessment Tool: RENATO-7 Assessment 24677 ([id number]) PHQ-9 - 82564 - PHQ-9 Billing: Yes ([id number]) Time Spent (min) 35 Assessment & Plan Assessment & Plan (1) Physical exam: Code(s): Z00.00 - Encounter for general adult medical examination without abnormal findings Category: Medical (2) Systolic murmur: Code(s): R01.1 - Cardiac murmur, unspecified Category: Medical (3) Eczema: Code(s): L30.9 - Dermatitis, unspecified Category: Medical (4) Allergic rhinitis: Code(s): J30.9 - Allergic rhinitis, unspecified Category: Medical (5) Asthma: Code(s): J45.909 - Unspecified asthma, uncomplicated Category: Medical Qualifiers: Asthma severity: mild Asthma persistence: persistent Asthma complication type: uncomplicated Qualified Code(s): J45.30 - Mild persistent asthma, uncomplicated Plan - Continue monitoring breast mass with follow-up ultrasound; current mass considered benign, requiring the final planned check. - Maintain management of allergic rhinitis with cetirizine; renew prescription as necessary. - Continue use of inhaler as needed for respiratory symptoms and monitor use. - Advise repeat colonoscopy following the recommended guidelines from 6015-6391 based on 2022 findings. - Reinforce dietary instructions for weight management and ensure compliance with recommended portions. Patient was informed and verbally consented to the use of an ambient scribe for clinic note documentation during this visit. During the visit, I discussed the management of the patient?s chronic health conditions, emphasizing the continued routine mammography follow-up, noting the stability of the identified benign mass. For her documented allergic conditions, the use of cetirizine and inhaler was reviewed, confirming the necessity of ongoing treatment to alleviate respiratory and skin symptoms. The identified adenomatous polyps during her last colonoscopy were discussed, and the recommended timeline for repeat colonoscopy was explained. Nutritional management strategies and the importance of maintaining physical activity were emphasized to support weight management goals. Orders: Orders Influenza 2430-6326 Immunization Today Z23 - Encounter for immunization Lipid Panel Today E78.5 - Hyperlipidemia, unspecified Comprehensive [place]. Panel Fast Today Z00.00 - Encounter for general adult medical examination without abnormal findings CA echo transthoracic complete Today R01.1 - Cardiac murmur, unspecified Medications: New budesonide 90 mcg/actuation (Pulmicort Flexhaler) 1 inh inhalation Q12H 30 days 1 ea 0RF triamcinolone acetonide 0.1% 1 appl topical BID 90 days PRN 80 grams 0RF rash Refilled montelukast (Singulair) 10 mg PO DAILY 90 days 90 tabs 3RF cetirizine (All Day Allergy (cetirizine)) 10 mg PO DAILY 30 days PRN 30 tabs 0RF allergy symptoms Patient Instructions: - Follow up with the breast mass evaluation as scheduled with the ultrasound. - Continue daily intake of cetirizine for allergy management. - Use the inhaler as needed, notably during respiratory distress or persistent coughing episodes. - Adhere to dietary recommendations for weight control, focusing on portion sizes. - Prepare for the repeat colonoscopy as advised between 2025 and 2027. - Limit alcohol intake and maintain regular physical activity.
[2024-02-11 11:02] VITALS: BP 120/80; BMI 31.8
== END 2024-02-11 11:28 | disposition home or self-care (01) ==
PROVIDERS: PCP Internal Medicine; Visit Provider Internal Medicine
DX: Z00.00 Encounter for general adult medical examination without abnormal findings (principal); R01.1 Cardiac murmur, unspecified; L30.9 Dermatitis, unspecified; J30.9 Allergic rhinitis, unspecified; J45.30 Mild persistent asthma, uncomplicated

== ENCOUNTER → 2024-02-11 10:59 | Outpatient (BNVA) | payer MEDICARE, MEDICAID, SELFPAY | PROVIDERS: PCP Internal Medicine; Visit Provider Internal Medicine | DX: Z00.00 Encounter for general adult medical examination without abnormal findings (principal); R01.1 Cardiac murmur, unspecified; L30.9 Dermatitis, unspecified; J30.9 Allergic rhinitis, unspecified; J45.30 Mild persistent asthma, uncomplicated | CPT/HCPCS: 96127; 99212; 99396 ==

== ENCOUNTER 2024-02-23 07:37 | Outpatient (REF) | payer MEDICARE, MEDICAID, SELFPAY ==
[2024-02-23 08:26] LABS: Alanine Aminotransferase 27 U/L (0-31); Albumin Level 3.8 g/dL (3.5-5.0); Alkaline Phosphatase 74 U/L (39-117); Anion Gap 12 (12-20); Aspartate Amino Transferase 22 U/L (5-31); Bilirubin Total 0.4 mg/dL (0.0-1.0); Blood Urea Nitrogen 14 mg/dL (9-16); Calcium 8.7 mg/dL (8.4-10.2); Carbon Dioxide 24 mmol/L (22-29); Chloride 107 mmol/L (96-108); Cholesterol 153 mg/dL (<200); Estimated Glomerular Filt Rate > 60; Glucose Fasting 98 mg/dL (60-99); HDL Cholesterol 49 mg/dL (>40); LDL Cholesterol Calculated 48 mg/dL (<100); Potassium 3.9 mmol/L (3.3-5.1); Sodium 139 mmol/L (135-145); Total Protein 6.3 g/dL (6.5-8.0); Triglycerides 280 mg/dL (<150)
[2024-02-23 08:52] LABS: Appearance Urine Clear; Color Urine Yellow; Glucose Urine UA Negative (Negative); Leukocyte Esterase Urine Negative (Negative); Nitrite Urine Negative (Negative); Urine Blood Negative (Negative); Urine Ketones Negative (Negative); Urine Protein Negative (Neg-Trace)
== END 2024-02-23 07:38 | disposition home or self-care (01) ==
LOC: HO.LAB 07:37
PROVIDERS: Physician Assistant; PCP Internal Medicine; Visit Provider Internal Medicine
DX: Z00.00 Encounter for general adult medical examination without abnormal findings (principal); R30.0 Dysuria; E78.5 Hyperlipidemia, unspecified
CPT/HCPCS: 36415; 80053; 80061; 81003

== ENCOUNTER 2024-03-09 09:32 | Outpatient (REF) | payer MEDICARE, MEDICAID, SELFPAY ==
--- NOTE | 2024-03-09 09:35 | CA_ITS ---
Transthoracic Echocardiogram Patient (Last, First, Middle): Amelie Gray, Gender: Female Date of : 1975 Age: 48 Procedure Date: 03/09/2024 Procedure Type: Transthoracic Echocardiogram Location: OP Height: 142.24 cm Weight: 66.23 kg BSA: 1.55 m2 Heart Rate: 69 bpm BP: 110 / 70 mmHg Is Consultant: HANG Referring MD: Shelia Perez MD Symptoms: R01.1 - Cardiac murmur, unspecified Study Quality: Fair ECG Rhythm: Sinus Conclusions: - The left ventricular systolic function is normal. The calculated ejection fraction is 66% by biplane method. - There is mild calcification of the aortic valve. Difficult to clarify if trileaflet versus bicuspid. There is no aortic valve stenosis. There is no aortic valve regurgitation. Findings Left Ventricle Normal left ventricular cavity size. There is normal left ventricular wall thickness. The left ventricular systolic function is normal. The calculated ejection fraction is 66% by biplane method. There is no evidence of regional wall motion abnormalities. Diastolic function is normal for age. Right Ventricle Normal right ventricular cavity size. There is low normal right ventricular systolic function. Atria Both atria are normal in size. Aortic Valve There is mild calcification of the aortic valve. There is no aortic valve stenosis. There is no aortic valve regurgitation. Aortic valve not well visualized. Difficult to clarify if trileaflet versus bicuspid. Mitral Valve The mitral valve appears normal. There is trace mitral valve regurgitation. There is no mitral valve stenosis. Pulmonic Valve The pulmonic valve is likely normal. Tricuspid Valve There is mild tricuspid valve regurgitation. There is no evidence of pulmonary hypertension. Great Vessels The asc aorta is normal in size. Venous The inferior vena cava is normal in size and collapses greater than 50% with inspiration. Pericardium/Pleural There is no evidence of pericardial effusion. Prior Study Comparison No prior study available for comparison. Measurements 2D Linear Measurements IVSd: 0.84 0.6-0.9/0.6-1.0 cm LVIDd: 4.23 3.9-5.3/4.2-5.9 cm LVIDd Index: 2.73 2.4-3.2/2.2-3.1 cm/m2 LVIDs: 2.35 2.0-3.6 cm LVPWd: 0.92 0.7-1.1 cm LA Diam: 3.40 2.7-3.8/3.0-4.0 cm LAIDs Index: 2.19 1.5-2.3 cm/m2 LV Mass: 144.47 67-162/88-224 g LV Mass Index: 93.21 43-95/49-115 g/m2 LVOT Diam: 1.80 3.0+(-)1.3 cm 2D Systolic Function EF 4C: 62.80 >55% EF 2C: 69.70 >55% EF BiP: 66.00 >55% Mitral Valve MV Pk E: 1.07 MV PK A: 0.77 MV Decel Time: 141.00 E/A: 1.40 E'Lateral: 12.30 E'Medial: 7.94 E/E' Med: 13.50 E/E' Lat: 8.70 PHT: 41.00 MVA PHT: 5.37 Decel [place]: 7.57 Aortic Valve AoV Pk Bryan: 1.22 AoV Mn Bryan: 0.81 AoV VTI: 0.28 AoV Pk Grad: 6.00 Aov Mn Grad: 3.00 NORMA Cont.VTI: 2.14 LVOT LVOT Pk Bryan: 1.05 LVOT Mn Bryan: 0.77 LVOT VTI: 0.24 LVOT Pk Grad: 4.00 LVOT Mn Grad: 3.00 LVOT Diam: 1.80 LVOT Area: 2.54 Diastolic Function MV Pk E: 1.07 MV Pk A: 0.77 E/A: 1.40 E'Medial: 7.94 E/E' Med: 13.50 E' Laterial: 12.30 E/E' Lat: 8.70 Right Ventricle TAPSE (mm): 17.50 TVS' Bryan: 9.68 Tricuspid Valve TR Pk Bryan: 1.82 TR Pk Grad: 13.00 RA Press: 3.00 RVSP: 16.00 Great Vessels Aorta Sinus of Valsalva: 2.90 2.0-3.5 cm Ao Asc: 2.50 2.1-3.4 cm Pulmonary Valve PV Pk Bryan: 0.76 Peak PV Grad: 2.00 Updated in Other Vendor System with Status of Final Vicente Gould MD electronically signed on 03/09/2024 12:15:47 PM with status of Final
== END 2024-03-09 09:33 | disposition home or self-care (01) ==
LOC: HO.HMGCLDS 09:32
PROVIDERS: PCP Internal Medicine; Visit Provider Internal Medicine
DX: R01.1 Cardiac murmur, unspecified (principal)
CPT/HCPCS: 93306

== ENCOUNTER → 2024-03-09 09:35 | Outpatient (BNV) | payer MEDICARE, MEDICAID, SELFPAY | PROVIDERS: PCP Internal Medicine; Visit Provider Internal Medicine | DX: I35.8 Other nonrheumatic aortic valve disorders (principal); I36.1 Nonrheumatic tricuspid (valve) insufficiency | CPT/HCPCS: 93306 ==

== ENCOUNTER 2024-04-12 12:25 | Outpatient (REF) | payer MEDICARE, MEDICAID, SELFPAY ==
--- NOTE | ~2024-04-12 | XR_ITS ---
EXAMINATION: XR RIBS, BILATERAL CLINICAL INFORMATION: R07.81 - Pleurodynia COMPARISON: None available. TECHNIQUE: 3 views of the bilateral ribs were obtained. FINDINGS: Lungs are clear. No consolidation, pneumothorax, or pleural effusion. The cardiomediastinal silhouette and pulmonary vasculature are normal. Osseous structures are unremarkable. Ribs are intact. No fractures are identified. XR/XR ribs BI 3V IMPRESSION: Normal examination. Electronically signed by: [place] Cosby MD 04/13/2024 10:33 AM TIFFANI STRINGER
--- OUTSIDE RECORDS SUMMARY | 2024-04-12 12:28 | XMS_ITS | Data Portability ---
Author Organization [place] - [facility] Address [address] [place] [address] Care Team Providers Care Clinical Lab Clerk Name Role Phone SHELIA FREGOSO Primary Care Provider Assessment Encounter Date Assessment Date Assessment LastModified by Organization Details LastModified Time 01/06/2024 01/06/2024 Recommendatio ns: Follow up with referring provider. Updated amplification , pending medical clearance. [email or web address] Not available 01/06/2024 10:09:15 Plan of Treatment Reminders Order Date Submit Date Provider Last Modified By Organization Details Last Modified Time Details Appointments None record ed. Lab None record ed. Referral None record ed. Procedures None record ed. Surgeries None record ed. Imaging None record ed. Medication Orders None record ed. Patient TargetsNo targets recorded. Patient InstructionsNo instructions recorded. Reason for Referral None Reported. Results Created Date Observation Date Name Description Value Unit Range Abnormal Flag Note LastModifiedBy Organization Detail LastModifiedTime 01/07/2001/06/2024 audio gram No observ ation record ed. [email or web address] [facility] Of [address], [address], 01/07/2024 12:08:47 01/08/20 audio gram No observ ation record ed. BARCODE Not Available 2023 09:37:16 Result Notes None recorded. Problems Name Problem SNOMED Code Status Onset Date Resolution Date Notes Provider Name and Address Organization Details Recorded Time Sensorineural hearing loss of bilateral ears [id number] Active 2023 DC CHOGN MD [address] [place], [place] [address]MARY B[place], [address], [place] - [facility] 20:31:54 Problem Notes None recorded. Procedures Surgical History Date Name Laterality Status Provider Name and Address Organization Details Recorded Time 01/06/20 24 Comp Audio with Tymps (59462 & 94043) completed DINA SOLIS, [facility] [address], [address], [place] - [facility] 01/06/2024 10:08:54 laparoscopy completed Shelia Rivera [place] - [facility] 01/06/2024 10:19:09 Appendectomy completed Shelia Rivera [place] - [facility] 01/06/2024 10:19:14 Hysterectomy completed Shelia Rivera [place] - [facility] 01/06/2024 10:19:20 section completed Shelia Rivera [place] - [facility] 01/06/2024 10:19:33 Imaging Results Imaging Date Name Status LastModified by Organiz ation Details LastModified Time 01/06/2024 audiogram [place] [id number], [address], 01/07/2024 12:08:47 01/08/2024 audiogram completed BARCODE Information no t available 01/08/2024 09:37:16 Procedure Notes None recorded. Medical Equipment None Reported. Allergies No known drug allergies Medications Name Sig Start Date Stop Date Status Note LastModified by Organization Details LastModified Time gabapentin 600 mg tablet TAKE 1 TABLET BY MOUTH 3 TIMES A DAY active Not Available Not Available No t Available cetirizine 10 mg tablet TAKE 1 TABLET BY MOUTH EVERY DAY NEEDED FOR ALLERGY SYMPTOMS FOR 30 DAYS 01/05 completed Not Available Not Available Not Available ibuprofen 800 mg tablet TAKE 1 TABLET BY MOUTH FOUR TIMES A DAY 01/05 completed Not Available Not Available Not Available benzonatate 200 mg capsule TAKE 1 CAPSULE BY MOUTH EVERY 8 HOURS 01/05 completed Not Available Not Available Not Available valacyclovi r 1 gram tablet TAKE 1 TABLET BY MOUTH EVERY DAY 2023 active Not Available Not Available Not Avai lable acetaminoph en 500 mg tablet TAKE 2 TABLETS BY MOUTH 4 TIMES A DAY 01/05 completed Not Available Not Available Not Available pantoprazol e 40 mg tablet,pool yed release TAKE 1 TABLET BY MOUTH EVERY DAY active Not Available Not Available No t Available Gas Relief (simethicon e) 80 mg chewable tablet CHEW 1 TABLET BY MOUTH 4 TIMES A DAY NEEDED 01/05 completed Not Available Not Available Not Available docusate sodium 100 mg capsule TAKE 1 CAPSULE BY MOUTH TWICE A DAY 01/05 completed Not Available Not Available Not Available montelukast 10 mg tablet TAKE ONE TABLET BY MOUTH DAILY active Not Available Not Available No t Available pyridoxine (vitamin B6) 100 mg tablet TAKE 1 TABLET BY MOUTH EVERY DAY active Not Available Not Available No t Available methylpredn isolone 4 mg tablets in a dose pack TAKE 6 TABLETS ON DAY 1 DIRECTED ON PACKAGE AND DECREASE BY 1 TAB EACH DAY FOR A TOTAL OF 6 DAYS 01/05 completed Not Available Not Available Not Available ondansetron 4 mg disintegrat ing tablet TAKE 1 TABLET BY MOUTH EVERY 8 HOURS NEEDED FOR NAUSEA 01/05 completed Not Available Not Available Not Available amoxicillin 500 mg-potassiu m clavulanate 125 mg tablet TAKE 1 TABLET BY MOUTH TWICE A DAY 01/05 completed Not Available Not Available Not Available oxycodone 5 mg tablet TAKE 1 TABLET BY MOUTH EVERY 6 HOURS NEEDED FOR SEVERE PAIN 01/05 completed Not Available Not Available Not Available cyclosporin e 0.05 % eye drops in a dropperette INSTILL 1 DROP INTO THE EYE(S) 2 TIMES A DAY FOR 30 DAYS active Not Available Not Available No t Available cholestyram ine (with sugar) 4 gram oral powder TAKE DIRECTED ONCE DAILY 2023 active Not Available Not Available Not Avai lable cholestyram ine-asparta me 4 gram oral powder for susp in a packet PLEASE SEE ATTACHED FOR DETAILED DIRECTION S 01/05 completed Not Available Not Available Not Available Vitals Date Recorded Body height Body weight Provider Name and Address Organization Details Last Updated DateTime 01/06/2024 142.24 cm 19457.49 g Shelia Rivera [place] - [facility] 01/06/2024 10:17:44 Social History None recorded. Functional Status None recorded. Mental Status None recorded. Family History Nothing Reported. Medical History Condition Response Arthritis Y Asthma Y Kidney Disease Y Gynecological HistoryNo gynecological history recorded. Obstetrics History GPAL:G 0 P 0 0 0 0 Past Encounters Encounter ID Performer Location Encounter Start Date Encounter Closed Date Diagnosis/Indication Diagnosis SNOMED-CT Code Diagnosis ICD10 Code Diagnosis Note [id number] DC CHONG MD [facility] [address] [address] 01/06/2024 09:25:30 01/06/2024 10:46:36 Sensorineural hearing loss of bilateral ears 031378472 H90.3 Patient's audiogram shows bilateral significan t high-frequ ency sensorineu ral hearing loss with {{well maintained * moderate ly reduced po or}} speech discrimina tion. There is enough hearing loss to affect day-to-day hearing performanc e. We discussed in detail the pros and cons of amplificat ion (hearing aids). We discussed the connection between untreated hearing loss and increased risk of dementia, falling and accidents. After full discussion , the patient expressed {{interest * no interest}} in learning more about amplificat ion options. Accordingl y {{we will set them up for a hearing aid evaluation I have provided a copy of the audiogram and medical clearance for amplificat ion so the patient can pursue this at their convenienc e I have provided a copy of the audiogram, a list of [facility] providers, and medical clearance for amplificat ion so the patient can pursue this at their convenienc e*}}. Patient is medically cleared for amplificat ion {{in the right ear in the left ear bilate rally*}}. [id number] KILLIAN DIETRICH [facility] of [address] [address] 01/06/2024 10:08:09 01/08/2024 13:54:22 Sensorineural hearing loss of bilateral ears 075475331 H90.3 Audiologic al evaluation results: Right ear: {{Normal sloping* M ild Modera te Moderat velasquez-severe Severe Pr ofound Nor mal auditory thresholds }} to {{mild mod erate mode rately-sev ere severe profound* with}} {{sensorin eural hearing loss with* cond uctive hearing loss with mixed hearing loss with}} {{excellen t* good fa ir poor no t measurable }} word recognitio n. Left ear: {{Normal sloping* M ild Modera te Moderat velasquez-severe Severe Pr ofound Nor mal auditory thresholds }} to {{mild mod erate mode rately-sev ere severe * profound with}} {{sensorin eural hearing loss with* cond uctive hearing loss with mixed hearing loss with}} {{excellen t* good fa ir poor no t measurable }} word recognitio n. Tympanomet ry: Right Ear:{{Type A* Type As Type Ad Type C Type C, shallow & rounded Ty pe B Type B with large volume Cou ld not maintain a hermetic seal}} Left Ear:{{Type A* Type As Type Ad Type C Type C, shallow & rounded Ty pe B Type B with large volume Cou ld not maintain a hermetic seal}} Health Concerns Section Related Observation LastModified by Organization Detai ls LastModified Time None Recorded Concern Status LastModified by Organization Details LastModified Time None Recorded Advance Directives Directive None Recorded Payers Encounter Date Sequence Insurance Name Policy Number Policy Coker Covered Member ID Coker Member ID Guarantor Name 01/06/2024 2 [place]: [facility] Umer Bender Elton [id number] [facility] 01/06/2024 1 MEDICARE B-[place]: [facility] Chau Gray [id number] Amelie Rocky 01/06/2024 2 [place] [facility] Umer Bender Elton [id number] [facility] Notes Date Note Type Note Provider Name and Address Organization Details Recorded Time 01/06/2024 text/html Audiological Evaluation HPIReported bypatient.Hearing loss perceived:hearing loss in both ears: no differences noted between ears Onset:gradual Use of amplification or other hearing devices:hearing aid: both ears Tinnitus reported:both ears DINA SOLIS, AUD 100 [facility],[place] [address], [place], [address], [facility] - [facility] 01/06/2024 10:11:01 01/06/2024 text/html Patient with bilateral sensorineural hearing loss affecting the high frequencies between 2079-0291 Hz, last seen in our office back in [address] Levin. Patient reports she began losing her hearing in her 30s, and has been using hearing aids since then. Current devices that she received through [facility] audiology are currently nonfunctional. She is having significant difficulty hearing in many different listening situations, and recounts recent episode where she could not hear a fire truck coming because of the hearing loss. DC CHONG MD [address] [place] [address], [phone], [facility] - [facility] 01/06/2024 10:45:50 OBGyn Episode No OBEpisode recorded.
--- OUTSIDE RECORDS SUMMARY | 2024-04-12 12:28 | XMS_ITS | Clinical Summary ---
Author Organization [facility] Address [address] [place] [address] Care Team Providers Care Rn Discharge Name Role Phone Unavailable Primary Care Provider Unavailabl e Social History Tobacco Use Types Packs/Day Years Used Date Smoking Tobacco: Never Assessed Sex and Gender Information Value Date Recorded Sex Assigned at Not on file Gender Identity Not on file Sexual Orientation Not on file Job Start Date Occupation Industry Not on file Not on file Not on file Plan of Treatment Not on file
--- OUTSIDE RECORDS SUMMARY | 2024-04-12 12:28 | XMS_ITS | Clinical Summary ---
Author Organization [facility] ity Address [address] [place] [address] Care Team Providers Care Vocal Music Instructor Name Role Phone Rome Kelly MD Primary Care Provider [phone] Surgical History Surgery Date Site/Laterality Comments HYSTERECTOMY 08/06/2023 N/A PROCEDURE: HISTORICAL HYSTERECTOMY; COMMENT: Total robotic with b/l salpingectomy Social History Tobacco Use Types Packs/Day Years Used Date Smoking Tobacco: Never Smokeless Tobacco: Never Alcohol Use Standard Drinks/Week Comments Not Currently 0 (1 standard drink = 0.6 oz pur e alcohol) Comments Unknown Sex and Gender Information Value Date Recorded Sex Assigned at Not on file Legal Sex Female 3:11 PM EST Gender Identity Not on file Sexual Orientation Not on file Obstetrics History Last Filed Vital Signs Vital Sign Reading Time Taken Comments Blood Pressure 124/80 09/16/2023 10:00 AM EDT Pulse 73 09/16/2023 10:00 AM EDT Temperature - - Respiratory Rate - - Oxygen Saturation - - Inhaled Oxygen Concentration - - Weight 66.2 kg (146 lb) 09/16/2023 10:00 AM EDT Height 142.2 cm (4' 8 ) 08/01/2023 9:54 AM EDT Body Mass Index 32.73 08/01/2023 9:54 AM EDT Plan of Treatment Health Maintenance Due Date Last Done Comments Breast Cancer Screening 1976 DTaP,Tdap,and Td Vaccines (1 - Tdap) 12/20/1995 Hepatitis B Vaccines (1 of 3 - 19+ 3-dose series) 12/20/1995 Cervical Cancer Screening: P ap Smear 1997 Colorectal Cancer Screening: Colonoscopy 01/23/2022 Depression Screening 01/23/2022 HIV Screening 01/23/2022 Hepatitis C Screening 01/23/2022 Social Influencers of Health Screening 01/23/2022 COVID-19 Vaccine (1 - 2023-2 5 season) 2023 Influenza Vaccine (#1) 2023 HIB Vaccines Aged Out No longer eligi ble based on patient's age to complete this topic HPV Vaccines Aged Out No longer eligi ble based on patient's age to complete this topic Hepatitis A Vaccines Aged Out No long er eligible based on patient's age to complete this topic IPV Vaccines Aged Out No longer eligi ble based on patient's age to complete this topic MMR Vaccines Aged Out No longer eligi ble based on patient's age to complete this topic Meningococcal ACWY Vaccine Aged Out N o longer eligible based on patient's age to complete this topic Meningococcal B Vacine Aged Out No lo nger eligible based on patient's age to complete this topic Pneumococcal Vaccine: Pediat rics (0 to 5 Years) and At-Risk Patients (6 to 64 Years) Aged Out No longer eligible b ased on patient's age to complete this topic RSV Immunization Patients Un dixon 20 months Aged Out No longer eligible b ased on patient's age to complete this topic Varicella Vaccines Aged Out No longer eligible based on patient's age to complete this topic Care Teams Vocal Music Instructor Relationship Specialty Start Date End Date Rome Kelly MD [address] [place] [phone] PCP - General 12/04/10
== END 2024-04-12 12:26 | disposition home or self-care (01) ==
LOC: HO.LAB 12:25
PROVIDERS: PCP Internal Medicine; Visit Provider Internal Medicine
DX: R07.81 Pleurodynia (principal)
CPT/HCPCS: 71110

== ENCOUNTER → 2024-04-12 12:29 | Outpatient (BNV) | payer MEDICARE, MEDICAID, SELFPAY | PROVIDERS: PCP Internal Medicine; Visit Provider Radiology Diagnostic Radiology | DX: R07.81 Pleurodynia (principal) | CPT/HCPCS: 71110 ==

== ENCOUNTER 2024-04-14 07:41 | Emergency (ER) | payer MEDICARE, MEDICAID, SELFPAY ==
--- NOTE | ~2024-04-14 | CT_ITS ---
CLINICAL HISTORY: left flank pain left lower rib pain, hx stones CT abdomen and pelvis without contrast Comparison: CT/SR - CT ABDOMEN PELVIS WO IV CON - 11/26/22 11:09 EDT Findings: The lung bases are clear. The gallbladder and solid organs are within normal limits. No renal stones. No bowel obstruction, pneumoperitoneum, or pneumatosis. Pelvic contents unremarkable. Appendix is not seen. No acute fracture. IMPRESSION: No acute findings. This document has been electronically signed by: Chikis George MD on 04/14/2024 17:40:34
[2024-04-14 08:04] VITALS: BP 97/50; PULSE 75; RESP 16; TEMP 35.9; O2SAT 96; BMI 32.5
[2024-04-14 09:16] LABS: MANUAL DIFF FLAG NO
[2024-04-14 09:17] LABS: Basophils Percent Auto 0.5 % (0-2); Eosinophils Absolute Auto 0.4 X10*3/uL (0.0-0.4); Hematocrit 38.9 % (37.0-47.0); Hemoglobin 13.6 g/dl (12.0-16.0); Imm Gran Abs Auto 0.04 X10*3/uL (0.00-0.03); Imm Gran Pct Auto 0.5 % (0.0-0.4); Lymphocytes Percent Auto 24.2 % (20-40); Mean Corpuscular Hemoglobin 30.3 pg (27.0-33.0); Mean Corpuscular Volume 86.6 fL (80.0-98.0); Mean Platelet Volume 11.1 fL (9.4-12.3); Monocytes Absolute Auto 0.6 X10*3/uL (0.1-1.2); Monocytes Percent Auto 7.3 % (2-11); Neutrophils Absolute Auto 5.2 x10*3/uL (2.0-8.3); Neutrophils Percent Auto 62.5 % (45-73); Platelet Count 238 X10*3/uL (160-400); Red Blood Count 4.49 X10*6/uL (4.20-5.50); Red Cell Distribution Width 13.3 % (11.0-16.0); White Blood Count 8.3 X10*3/uL (4.8-10.8)
[2024-04-14 09:18] LABS: Appearance Urine Clear; Color Urine Yellow; Glucose Urine UA Negative (Negative); Leukocyte Esterase Urine Negative (Negative); Nitrite Urine Negative (Negative); PH 6.5 (5.0-9.0); Specific Gravity - Urine <= 1.005 (1.005-1.025); Urine Blood Negative (Negative); Urine Ketones Negative (Negative); Urine Protein Negative (Neg-Trace)
[2024-04-14 09:20] LABS: Bacteria Urine None Seen (None Seen); Hyaline Casts Urine 0-2 /LPF (0-2); RBC Urine 0-2 /HPF (0-2); Squamous Epithelial Cell Urine 0-2 /HPF (0-2); WBC Urine 0-5 /HPF (0-5)
[2024-04-14 09:50] LABS: Alanine Aminotransferase 42 U/L (0-31); Albumin Level 4.3 g/dL (3.5-5.0); Alkaline Phosphatase 72 U/L (39-117); Anion Gap 12 (12-20); Aspartate Amino Transferase 33 U/L (5-31); Bilirubin Total 0.3 mg/dL (0.0-1.0); Blood Urea Nitrogen 7 mg/dL (9-16); Calcium 9.2 mg/dL (8.4-10.2); Carbon Dioxide 24 mmol/L (22-29); Chloride 108 mmol/L (96-108); Estimated Glomerular Filt Rate > 60; Glucose Random 87 mg/dL (60-115); Potassium 4.2 mmol/L (3.3-5.1); Sodium 140 mmol/L (135-145); Total Protein 7.4 g/dL (6.5-8.0)
--- OUTSIDE RECORDS SUMMARY | 2024-04-14 15:22 | XMS_ITS | Clinical Summary ---
Author Organization [facility] ity Address [address] [place] [address] Care Team Providers Care Rug Underlay Machine Operator Name Role Phone Rome Kelly MD Primary Care Provider [phone] Surgical History Surgery Date Site/Laterality Comments HYSTERECTOMY [...] age to complete this topic Care Teams Rug Underlay Machine Operator Relationship Specialty Start Date End Date Rome Kelly MD [address] [place] [phone] PCP - General 12/04/10
--- OUTSIDE RECORDS SUMMARY | 2024-04-14 15:22 | XMS_ITS | Data Portability ---
Author Organization [place] - [facility] Address [address] [place] [address] Care Team Providers Care Hospital Cleaner Name Role Phone SHELIA FREGOSO Primary Care [...] observ ation record ed. [email or web address] [facility] Of [address], [address], 01/07/2024 12:08:47 01/08/20 audio gram No observ ation record ed. BARCODE Not Available 2023 09:37:16 Result Notes None recorded. Problems Name Problem SNOMED Code Status Onset Date Resolution Date Notes Provider Name and Address Organization Details Recorded Time Sensorineural hearing loss of bilateral ears [id number] Active 2023 DC CHONG MD [address] [place], [place] [address]MARY [place], [address], [place] - [facility] 20:31:54 Problem Notes None recorded. Procedures Surgical History Date Name Laterality Status Provider Name and Address Organization Details Recorded Time 01/06/20 24 Comp Audio with Tymps (95214 & 79700) completed DINA SOLIS, [facility] [address], [address], [place] - [facility] 01/06/2024 10:08:54 laparoscopy completed Shelia Rivera [place] - [facility] 01/06/2024 10:19:09 Appendectomy completed Shelia Rivera [place] - [facility] 01/06/2024 10:19:14 Hysterectomy completed Shelia Rivera [place] - [facility] 01/06/2024 10:19:20 section completed Shelia Rivera [place] - [facility] 01/06/2024 10:19:33 Imaging Results Imaging Date Name Status LastModified by Organiz ation Details LastModified Time 01/06/2024 audiogram completed [place] [id number], [address], 01/07/2024 12:08:47 01/08/2024 audiogram completed BARCODE Information [...] Details Last Updated DateTime 01/06/2024 142.24 cm 77242.49 g Shelia Rivera [place] - [facility] 01/06/2024 10:17:44 Social History None recorded. [...] SNOMED-CT Code Diagnosis ICD10 Code Diagnosis Note [id number] DC CHONG MD [facility] [address] [address] 01/06/2024 09:25:30 01/06/2024 10:46:36 Sensorineural hearing loss of bilateral ears [id number] H90.3 Patient's audiogram shows bilateral significan t [...] copy of the audiogram, a list of [facility] hearing aid providers, and medical clearance for amplificat ion so the patient can pursue this at their convenienc e*}}. Patient is medically cleared for amplificat ion {{in the right ear in the left ear bilate rally*}}. [id number] KILLIAN DIETRICH [facility] of [address] [address] 01/06/2024 10:08:09 01/08/2024 13:54:22 Sensorineural hearing loss of bilateral ears 126422506 H90.3 Audiologic al evaluation results: Right ear: [...] Coker Member ID Guarantor Name 01/06/2024 2 [place]: [facility] Umer Bender Elton [id number] [facility] 01/06/2024 1 [place] [facility] Chau Gray [id number] Amelie Rocky 01/06/2024 2 [place] [facility] Umer Bender Elton [id number] [facility] Notes Date Note Type Note Provider Name and Address Organization Details Recorded Time 01/06/2024 text/html Audiological Evaluation HPIReported bypatient.Hearing loss perceived:hearing loss in both ears: no differences noted between ears Onset:gradual Use of amplification or other hearing devices:hearing aid: both ears Tinnitus reported:both ears DINA SOLIS, AUD 100 [facility],[place] [address], [place], [address], [facility] - [facility] 01/06/2024 10:11:01 01/06/2024 text/html Patient with bilateral sensorineural hearing loss affecting the high frequencies between 1381-6181 Hz, last seen in our office back [place] [address] Levin. Patient reports she began losing her hearing in her 30s, and has been using hearing aids since then. Current devices that she received through [facility] audiology are currently nonfunctional. She is having significant difficulty hearing in many different listening situations, and recounts recent episode where she could not hear a fire truck coming because of the hearing loss. DC CHONG MD [address] [place] [address], [phone], [facility] - [facility] 01/06/2024 10:45:50 OBGyn Episode No OBEpisode recorded.
--- OUTSIDE RECORDS SUMMARY | 2024-04-14 15:22 | XMS_ITS | Clinical Summary ---
Author Organization [facility] Address [address] [place] [address] Care Team Providers Care Concrete Pump Operator Helper Name Role Phone Unavailable Primary Care Provider [...]
--- NOTE | 2024-04-14 15:29 | ED.FEMALEGU ---
HPI - Female Genitourinary General Chief complaint: Urogenital-Female Stated complaint: Back pain, numbness in hands/legs Time Seen by Provider: 04/14/24 15:29 Source: patient Mode of arrival: ambulatory Limitations: no limitations History of Present Illness ED Provider: JENNIFER ALMEIDA PA-C HPI Narrative: 48 year old female with pmhx significant for GERD, hemorrhoids, asthma, fibromylagia, kidney stones, diverticulitis presents to the ED today for evaluation of left flank pain x2 weeks. Pain has been constant however waxes and wanes in severity. She initially thought the pain was within her left lower rib area. PCP ordered rib xray which was unremarkable. Pain is now primarily in left flank and wraps around to left abdomen. Admits to associated nausea without vomiting. Endorses history of similar with renal stones. Denies any trauma/ injury/ falls. Denies fever, chills, cough, chest pain, sob, dysuria, hematuria. Also endorses b/l hand/wrist numbness/tingling. Chronic in nature. Diagnosed with b/l hand erosive OA, followed with customer relations coordinator for this. Wears wrist braces at night. Is being treated with gabapentin. No change in symptoms. Related Data Home Medications ?Medication ?Instructions ?Recorded ?Confirmed albuterol sulfate 90 mcg/actuation 0 mcg inhalation 07/18/22 02/11/24 aerosol inhaler Previous Rx's ?Medication ?Instructions ?Recorded pantoprazole 40 mg tablet,delayed 40 mg PO DAILY 90 days #90 tabs 09/27/23 release gabapentin 600 mg tablet 600 mg PO TID 30 days #90 tabs 10/22/23 valacyclovir 1 gram tablet 1,000 mg PO DAILY 90 days #90 tabs 11/03/23 cyclosporine 0.05 % eye drops in a 1 drp ophthalmic (eye) BID 30 days 11/18/23 dropperette #30 ea pyridoxine (vitamin B6) 100 mg 100 mg PO DAILY #90 tabs 12/11/23 tablet budesonide 90 mcg/actuation breath 1 inh inhalation Q12H 30 days #1 ea 02/11/24 activated powder inhaler (Pulmicort Flexhaler) cetirizine 10 mg tablet (All Day 10 mg PO DAILY PRN allergy 02/11/24 Allergy (cetirizine)) symptoms 30 days #30 tabs montelukast 10 mg tablet 10 mg PO DAILY 90 days #90 tabs 02/11/24 (Singulair) triamcinolone acetonide 0.1 % 1 appl topical BID PRN rash 90 02/11/24 topical cream days #80 grams cholestyramine-aspartame 4 gram 4 g PO DAILY 90 days #60 ea 02/27/24 oral powder for susp in a packet (Cholestyramine Light) naproxen 500 mg tablet 500 mg PO Q12H PRN pain (scale 04/14/24 score 1-3) #20 tabs Allergies Allergy/AdvReac Type Severity Reaction Status Date / Time No Known Allergies Allergy Verified 04/14/24 08:07 Review of Systems Review of Systems: Constitutional: No fever, chills, fatigue, night sweats, weight changes ENT/Mouth: No ear pain, hearing loss, nasal congestion, sinus pain, rhinorrhea, sore throat Eyes: No eye pain, swelling, redness, vision changes, discharge Cardio: No chest pain, palpitations, ERVIN, orthopnea, peripheral edema Pulm: No SOB, cough, sputum, wheezing, dyspnea, hemoptysis GI: No nausea, vomiting, hematemesis, abdominal pain, diarrhea, constipation, hematochezia, melena : No irregular bleeding, dysuria, frequency, urgency, hesitancy, hematuria, urinary flow changes, urinary incontinence or retention, +left flank pain MSK: No back pain, neck pain, joint pain, myalgias Skin: No lesions, rashes Neuro: No weakness, numbness, paresthesias, LOC, dizziness, headache Psych: No anxiety/panic, depression, SI/HI, AH/VH All other systems reviewed and are negative. [facility] Past Medical History Attestation statement: The following information was validated with the patient. Source: old records reviewed and nursing notes reviewed Medical History Colon adenomas Renal calculi Hearing loss, bilateral Medicare annual wellness visit, initial Abdominal pain Hearing loss Obese Asthma GERD (gastroesophageal reflux disease) Scoliosis Carpal tunnel syndrome Fibromyalgia Surgical History H/O: hysterectomy Hx of colonoscopy History of esophagogastroduodenoscopy (EGD) History of intestinal surgery History of dilation and curettage Hx of appendectomy Hx of section Family History Family History Mother HTN (hypertension) Diverticulitis Father Diabetes Maternal Aunt Guillain-Iona syndrome Social History Social History Housing: Apartment Alcohol intake: current Alcohol intake frequency: holidays/special occasions only Alcohol type: beer and wine Patient Tobacco Use Status: Former Tobacco user Tobacco use type: Cigarette e-Cigarette/Vaping Use: Never Used Second Hand Smoke Exposure: No service: No Current occupational status: employed 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 Skin: Warm, dry, intact. No rashes or lesions. Head: Normocephalic, atraumatic. EENT: Hearing is intact b/l. Conjunctiva clear. PERRLA. EOM intact. Moist mucous membranes.? Neck: Supple without LAD Cardiac: Chest wall symmetric. RRR. non tender to palpation of anterior/lateral/posterior chest craven. no palpable deformity or crepitus. Lungs: Normal respiratory effort without accessory muscle use. CTA bilaterally Abdomen: Soft, non-tender, non-distended. No rebound tenderness or guarding. Positive BS x4. no cvat. Back: No midline spinous or paraspinal tenderness. No step off deformity. Ext: Upper and lower extremities atraumatic, without tenderness, deformity, swelling or erythema. Full ROM throughout. +tinel and phalen sign to b/l UEs. Neuro: NIH 0. AOx3. Normal speech. Strength 5/5 intact throughout. No saddle anesthesia. Sensation intact to light touch. NV intact distally. Ambulating with steady gait. Psych: Appropriate mood and affect. Responds appropriately to questions. Course Course Course Narrative: CBC without leukocytosis or left shift. No anemia. H&H stable. Chemistry without acute electrolyte abnormality requiring intervention. No WENDI. Liver function around baseline. vitamin b12 wnl. UA without infection or blood. urine negative. xr b/l ribs obtained on 04/12/24 without rib fracture, consolidation, infiltrate or effusion. > medicated w/ toradol for pain control > ct a/p pending CT a/p unremarkable. no evidence of renal stones/ hydro/ pyelo. no evidence of stool burden. discussed work up results with patient. no clear etiology for discomfort however reports improvement with toradol. advised tylenol/motrin at home. advised to follow up with pcp. tolerating PO in ed. Patient has remained stable throughout ED visit today. Discussed worrisome signs and symptoms and when to return to the ED. All questions answered at this time. Patient is agreeable with disposition and stable for discharge. Medications Administered Discontinued Medications Generic Name Dose Route Start Last Admin Trade Name Freq PRN Reason Stop Dose Admin Ketorolac Tromethamine 30 mg 04/14/24 15:41 04/14/24 16:12 Ketorolac Tromethamine 30 Mg/Ml Vial IM 04/14/24 15:42 30 mg ONCE ONE Administration Medical Decision Making Medical Decision Making [facility] Narrative: 48 year old female with pmhx significant for GERD, hemorrhoids, asthma, fibromylagia, kidney stones, diverticulitis presents to the ED today for evaluation of left flank pain x2 weeks. vital signs stable. she is nontoxic appearing and in NAD. exam benign. Differential diagnosis includes anemia, electrolyte abnormality, vitamin b12 deficiency, carpal tunnel syndrome, UTI, renal colic, nephrolithiasis, constipation Plan for labs, UA, imaging, pain control, re-evaluation. Differential Diagnosis Differential Diagnoses: The differential diagnosis associated with the presentation includes as above. Admission/Observation not indicated. Lab Data MDM Lab Attestation statement: I reviewed the patient's lab results. as above. 04/14/24 09:11 04/14/24 09:11 Labs: Lab Results 04/14/24 04/14/24 Range/Units 09:11 16:41 WBC 8.3 (4.8-10.8) X10*3/uL RBC 4.49 (4.20-5.50) X10*6/uL Hgb 13.6 (12.0-16.0) g/dl Hct 38.9 (37.0-47.0) % MCV 86.6 (80.0-98.0) fL MCH 30.3 (27.0-33.0) pg MCHC 35.0 (31.0-35.0) g/dl RDW 13.3 (11.0-16.0) % Plt Count 238 (160-400) X10*3/uL MPV 11.1 (9.4-12.3) fL Immature Gran % (Auto) 0.5 H (0.0-0.4) % Neut % (Auto) 62.5 (45-73) % Lymph % (Auto) 24.2 (20-40) % [place] % (Auto) 7.3 (2-11) % Eos % (Auto) 5.0 H (0-4) % Baso % (Auto) 0.5 (0-2) % Lymph # (Auto) 2.0 (1.2-4.9) X10*3/uL [place] # (Auto) 0.6 (0.1-1.2) X10*3/uL Eos # (Auto) 0.4 (0.0-0.4) X10*3/uL Baso # (Auto) 0.0 (0.0-0.2) X10*3/uL Abs Immat Gran (auto) 0.04 H (0.00-0.03) X10*3/uL Absolute Neuts (auto) 5.2 (2.0-8.3) x10*3/uL Absolute Nucleated RBC 0.000 (0.0-0.012) X10*3/uL Nucleated RBC % (auto) 0.0 (0.0-0.2) /100WBC Sodium 140 (135-145) mmol/L Potassium 4.2 (3.3-5.1) mmol/L Chloride 108 (96-108) mmol/L Carbon Dioxide 24 (22-29) mmol/L Anion Gap 12 (12-20) BUN 7 L (9-16) mg/dL Creatinine 0.58 (0.5-1.4) mg/dL Estim Creat Clear Calc 91.0 Estimated GFR > 60 Random Glucose 87 (60-115) mg/dL Calcium 9.2 (8.4-10.2) mg/dL Total Bilirubin 0.3 (0.0-1.0) mg/dL AST 33 H (5-31) U/L ALT 42 H (0-31) U/L Alkaline Phosphatase 72 (39-117) U/L Total Protein 7.4 (6.5-8.0) g/dL Albumin 4.3 (3.5-5.0) g/dL Vitamin B12 433 (200-900) pg/mL Urine Color Yellow Urine Appearance Clear Urine pH 6.5 (5.0-9.0) Ur Specific Martin <= 1.005 (1.005-1.025) Urine Protein Negative (Neg-Trace) mg/dL Urine Glucose (UA) Negative (Negative) mg/dL Urine Ketones Negative (Negative) mg/dL Urine Blood Negative (Negative) Urine Nitrite Negative (Negative) Ur Leukocyte Esterase Negative (Negative) Urine RBC 0-2 (0-2) /HPF Urine WBC 0-5 (0-5) /HPF Ur Squamous Epith Cells 0-2 (0-2) /HPF Urine Bacteria None Seen (None Seen) Hyaline Casts 0-2 (0-2) /LPF Urine Test NEGATIVE (NEGATIVE) Independent Interpretation I performed an independent interpretation of an: Plain X-Ray and CT Scan Interpretation: CT A/P w/o renal stone xr b/l ribs obtained on 04/12/24 without rib fracture, consolidation, infiltrate or effusion. Radiology Impression Discussion of test interpretation with radiology: I have reviewed the radiologist's reading. Radiologist Impression: Procedure(s): CT abdomen pelvis wo IV con Accession Number(s): [id number] cc: Jennifer Almeida; Shelia Lobo MD~ Report Number: [id number]: Total DLP = 470.00 mGy-cm CLINICAL HISTORY: left flank pain left lower rib pain, hx stones CT abdomen and pelvis without contrast Comparison: CT/SR - CT ABDOMEN PELVIS WO IV CON - 11/26/22 11:09 EDT Findings: The lung bases are clear. The gallbladder and solid organs are within normal limits. No renal stones. No bowel obstruction, pneumoperitoneum, or pneumatosis. Pelvic contents unremarkable. Appendix is not seen. No acute fracture. IMPRESSION: No acute findings. This document has been electronically signed by: Chikis George MD on 04/14/2024 17:40:34 Independent Historian Clinical information obtained from an independent historian. History obtained from or confirmed by: Spouse External Record Review External record reviewed: Inpatient record, Office record, Outpatient record, Prior outpatient labs, Prior outpatient radiology, Primary care record and Outside ED record Prescription Management I considered prescription management with: Pain Medication Chronic Conditions Patient?s care impacted by: Other (renal stones, fibromyalgia) Social Determinants Patient?s care significantly limited by Social Determinants of Health including: Other Social Determinant of Health Critical Care Time Critical Care Time Critical Care Time: No Discharge Plan Discharge Clinical Impression: Left flank pain Patient Disposition: Home, Self-Care Instructions: Flank Pain (ED) Additional Instructions: Your blood work is reassuring. Your urine does not demonstrate infection or . The CT scan of your abdomen is normal. I have sent naproxen to your pharmacy. Take this as needed for pain. Do not take this with other NSAIDs such as motrin as this can cause increased risk of GI bleeding. As discussed, follow up with your outpatient providers. Return with any new or worsening symptoms. In the case of an emergency call 911. Prescriptions: New naproxen 500 mg tablet 500 mg PO Q12H PRN (Reason: pain (scale score 1-3)) Qty: 20 0RF No Action pantoprazole 40 mg tablet,delayed release (DR/EC) 40 mg PO DAILY 90 Days Qty: 90 3RF gabapentin 600 mg tablet 600 mg PO TID 30 Days Qty: 90 0RF valacyclovir 1 gram tablet 1,000 mg PO DAILY 90 Days Qty: 90 1RF cyclosporine 0.05 % dropperette 1 drp ophthalmic (eye) BID 30 Days Qty: 30 6RF pyridoxine (vitamin B6) 100 mg tablet 100 mg PO DAILY Qty: 90 3RF cholestyramine-aspartame [Cholestyramine Light] 4 gram powder in packet 4 g PO DAILY 90 Days Qty: 60 1RF Rx Instructions: administer w/meal; avoid other meds within 1hr before or 4-6hr after dose albuterol sulfate 90 mcg/actuation HFA aerosol inhaler 0 mcg inhalation Pulmicort Flexhaler 90 mcg/actuation aerosol powdr breath activated 1 inh inhalation Q12H 30 Days Qty: 1 0RF cetirizine [All Day Allergy (cetirizine)] 10 mg tablet 10 mg PO DAILY PRN (Reason: allergy symptoms) 30 Days Qty: 30 0RF triamcinolone acetonide 0.1 % cream 1 appl topical BID PRN (Reason: rash) 90 Days Qty: 80 0RF montelukast [Singulair] 10 mg tablet 10 mg PO DAILY 90 Days Qty: 90 3RF Referrals: Shelia Lobo MD [Primary Care Provider] - Interventions: ED Discharge Assessment Last Done: 04/14/24 18:04 Discharge Date/Time: 04/14/24 18:04 Print Language: Georgian
[2024-04-14 15:40] LABS: UPreg QC Valid YES; Urine Pregnancy NEGATIVE (NEGATIVE)
[2024-04-14] MEDS: Ketorolac Tromethamine 30 MG/ML VIAL IM (16:12)
[2024-04-14 17:37] LABS: Vitamin B12 433 pg/mL (200-900)
[2024-04-14 18:04] VITALS: BP 97/50; PULSE 75; RESP 16; TEMP 35.9; O2SAT 96
== END 2024-04-14 18:04 | disposition home or self-care (01) ==
PROVIDERS: Physician Assistant Medical; Emergency Provider Emergency Medicine; PCP Internal Medicine
DX: R10.9 Unspecified abdominal pain (principal); J45.909 Unspecified asthma, uncomplicated; Z87.442 Personal history of urinary calculi
CPT/HCPCS: 36415; 74176; 80053; 81001; 81025; 82607; 85025; 96372; 99283; 99284; J1885

== ENCOUNTER → 2024-04-14 15:40 | Outpatient (BNV) | payer MEDICARE, MEDICAID, SELFPAY | PROVIDERS: Emergency Provider Emergency Medicine; PCP Internal Medicine; Visit Provider Radiology Diagnostic Radiology | DX: R10.9 Unspecified abdominal pain (principal); Z87.442 Personal history of urinary calculi; R07.81 Pleurodynia | CPT/HCPCS: 74176 ==

== ENCOUNTER 2024-05-26 09:15 | Outpatient (REF) | payer MEDICARE, MEDICAID, SELFPAY ==
--- NOTE | ~2024-05-26 | CT_ITS ---
CLINICAL HISTORY: N20.0 - Calculus of kidney CT abdomen and pelvis without contrast Comparison: 04/14/2024 Findings: Lung bases clear. No acute bony abnormality. Liver and spleen within normal limits. Pancreas and adrenal glands unremarkable. Gallbladder contracted and not assessed. No bilateral renal stone or hydronephrosis. No focal renal abnormality or ureteral dilation. No evidence for aortic aneurysm. No free fluid or adenopathy in the pelvis. No diverticulitis. Appendectomy. Hysterectomy. No adnexal abnormality. Impression: No acute processes This document has been electronically signed by: Lang Nicolas MD on 05/26/2024 19:47:20
--- OUTSIDE RECORDS SUMMARY | 2024-05-26 10:13 | XMS_ITS | Data Portability ---
Author Organization [place] - [facility] Address [address] [place] [id number] Care Team Providers Care Leveler Helper Name Role Phone SHELIA FREGOSO Primary Care [...] observ ation record ed. [email or web address] [facility] [address], [address], 01/07/2024 12:08:47 01/08/20 audio gram No observ ation record ed. BARCODE Not Available 2023 09:37:16 Result Notes None recorded. Problems Name Problem SNOMED Code Status Onset Date Resolution Date Notes Provider Name and Address Organization Details Recorded Time Sensorineural hearing loss of bilateral ears [id number] Active 2023 DC CHONG MD [address] [place], [place] [address]MARY [place], [id number], [place] - [facility] 20:31:54 Problem Notes None recorded. Procedures Surgical History Date Name Laterality Status Provider Name and Address Organization Details Recorded Time 01/06/20 24 Comp Audio with Tymps (65692 & 44306) completed DINA SOLIS, [facility] [address], [address], [place] - [facility] 01/06/2024 10:08:54 laparoscopy completed Shelia Rivera [place] - [facility] 01/06/2024 10:19:09 Appendectomy completed Shelia Rivera [place] - [facility] 01/06/2024 10:19:14 Hysterectomy completed Shelia Rivera [place] - [facility] 01/06/2024 10:19:20 section completed Shelia Rivera [place] - [facility] 01/06/2024 10:19:33 Imaging Results Imaging Date Name Status LastModified by Organiz ation Details LastModified Time 01/06/2024 audiogram [email or web address] [id number], [address], 01/07/2024 12:08:47 01/08/2024 audiogram completed BARCODE Information [...] completed Not Available Not Available Not Available Cholestyram ine Light 4 gram powder for suspension in a packet TAKE 1 PACKET ORALLY DAILY W/MEAL AVOID OTHER MEDS W/IN 1HR BEFORE OR 4-6HR AFTER DOSE active Not Available Not Available No t Available pantoprazol e 40 mg tablet,pool yed [...] Details Last Updated DateTime 01/06/2024 142.24 cm 76243.49 g Shelia Rivera [place] - [facility] 01/06/2024 10:17:44 Social History None recorded. [...] SNOMED-CT Code Diagnosis ICD10 Code Diagnosis Note [id number] DC CHONG MD [facility] [address] [address] 01/06/2024 09:25:30 01/06/2024 10:46:36 Sensorineural hearing loss of bilateral ears [id number] H90.3 Patient's audiogram shows bilateral significan t [...] the audiogram, a list of [facility] hearing aid providers, and medical clearance for amplificat ion so the patient can pursue this at their convenien e*}}. Patient is medically cleared for amplificat ion {{in the right ear in the left ear bilate rally*}}. [id number] KILLIAN DIETRICH [facility] [address] [address] 01/06/2024 10:08:09 01/08/2024 13:54:22 Sensorineural hearing loss of bilateral ears [id number] H90.3 Audiologic al evaluation results: Right ear: [...] Coker Member ID Guarantor Name 01/06/2024 2 MEDICAID-[place]: [facility] Amelie Gray [id number] Amelie Hidalgo 01/06/2024 1 MEDICARE B-PA: [facility] Chau Gray [id number] Amelie Hidalgo 01/06/2024 2 MEDICAID-[place]: [facility] Amelie Gray [id number] Amelie Hidalgo Notes Date Note Type Note Provider Name and Address Organization Details Recorded Time 01/06/2024 text/html Audiological Evaluation HPIReported bypatient.Hearing loss perceived:hearing loss in both ears: no differences noted between ears Onset:gradual Use of amplification or other hearing devices:hearing aid: both ears Tinnitus reported:both ears DINA SOLIS, AUD [address] [facility],[place] [address], [place], [address], [facility] - [facility] 01/06/2024 10:11:01 01/06/2024 text/html Patient with bilateral sensorineural hearing loss affecting the high frequencies between 8309-2508 Hz, last seen in our office back in [address] Levin. Patient reports she began losing her hearing in her 30s, and has been using hearing aids since then. Current devices that she received through [facility] audiology are currently nonfunctional. She is having significant difficulty hearing in many different listening situations, and recounts recent episode where she could not hear a fire truck coming because of the hearing loss. DC CHONG MD [address] [place] [address], [phone], [facility] - [facility] 01/06/2024 10:45:50 OBGyn Episode No OBEpisode recorded.
--- OUTSIDE RECORDS SUMMARY | 2024-05-26 10:13 | XMS_ITS | Clinical Summary ---
Author Organization [employer] [facility] ity Address [address] [place] [address] Care Team Providers Care Armature Connector Name Role Phone Rome Kelly MD Primary Care Provider [phone] Surgical History Surgery Date Site/Laterality Comments HYSTERECTOMY [...] age to complete this topic Care Teams Armature Connector Relationship Specialty Start Date End Date Rome Kelly MD [address] [place] [phone] PCP - General 12/04/10
--- OUTSIDE RECORDS SUMMARY | 2024-05-26 10:13 | XMS_ITS | Clinical Summary ---
Author Organization [employer] [facility] Address [address] [place] [address] Care Team Providers Care Sampler Ovens Name Role Phone Unavailable Primary Care Provider [...]
== END 2024-05-26 09:16 | disposition home or self-care (01) ==
LOC: HO.CT 09:15
PROVIDERS: PCP Internal Medicine; Visit Provider Urology
DX: N20.0 Calculus of kidney (principal)
CPT/HCPCS: 74176

== ENCOUNTER → 2024-05-26 09:19 | Outpatient (BNV) | payer MEDICARE, MEDICAID, SELFPAY | PROVIDERS: PCP Internal Medicine; Visit Provider Radiology Diagnostic Radiology | DX: N20.0 Calculus of kidney (principal) | CPT/HCPCS: 74176 ==

== ENCOUNTER 2024-05-27 08:08 | Outpatient (AMB) | payer MEDICARE, MEDICAID, SELFPAY ==
[2024-05-27 08:09] VITALS: BP 120/80; PULSE 71; O2SAT 97; BMI 30.5
--- NOTE | 2024-05-27 08:09 | MHC.OFFVIS ---
Vital Signs 05/27/24 08:09 Height 4 ft 8 in Weight 136 lb 3.931 oz BMI 30.5 BP 120/80 Blood Pressure Location Lt brachial Position Sitting Pulse 71 Pulse Source Pulse Oximeter Pulse Oximetry (%) 97 Oxygen Delivery Method Room Air Intake Visit Reasons: Intake Note: Patient presents today for an follow up. Accompanied by: Self / Same As Patient Allergies No Known Allergies Allergy (Verified 05/27/24 08:10) HPI HPI : Details: Pain in right CMC is constant. It kept her up at night last night. She has parenthesis right hand that keep up up at night as well. Pain is described as pins and needles with sometimes having sharp shooting pain that radiates up her arm. She sometimes wears wrist brace at night. When pain is intense, she wears it during the day and night for about a week. When right CMC pain is uncontrolled, she is utilizing her hand more contributing to left CMC pain. She takes tylenol tylenol 650mg PRN. She was prescribed naproxen 500mg b.i.d. by PCP for back pain but uses it PRN. She tries to avoid using medications. 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 Hands are weak. Hard to open jars and hold things. [facility] Medical History Colon adenomas Renal calculi Hearing loss, bilateral Medicare annual wellness visit, initial Abdominal pain Hearing loss Obese Asthma GERD (gastroesophageal reflux disease) Scoliosis Carpal tunnel syndrome Fibromyalgia Surgical History H/O: hysterectomy Hx of colonoscopy History of esophagogastroduodenoscopy (EGD) History of intestinal surgery History of dilation and curettage Hx of appendectomy Hx of section Family History Mother HTN (hypertension) Diverticulitis Father Diabetes Maternal Aunt Guillain-Winamac syndrome Social History Housing: Apartment Alcohol intake: current Alcohol intake frequency: holidays/special occasions only Alcohol type: beer and wine Patient Tobacco Use Status: Former Tobacco user Tobacco use type: Cigarette e-Cigarette/Vaping Use: Never Used Second Hand Smoke Exposure: No service: No Current occupational status: employed 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 Heberden nodes present with tenderness of right 2nd and 3rd DIPJ. She has synovitis left 2nd DIPJ without tenderness. She is able to buttonhole facer hands but buttonhole facer is weak. Assessment & Plan Assessment & Plan (1) Osteoarthritis of carpometacarpal (CMC) joint of right thumb: Comment: Right CMC pain is greater than left CMC pain. She experiences left CMC pain when right CMC pain is uncontrolled and she is using her left hand more. We discussed conservative management. She is using diclofenac gel at night. Recent labs revealed mild transaminitis from March 2024. Code(s): M18.11 - Unilateral primary osteoarthritis of first carpometacarpal joint, right hand Category: Medical Plan: OT prescribed for hand strengthening program and customized bilateral CMC splints. She will wear CMC splints during the day AST and ALT ordered Return to clinic in 3 months (2) Erosive osteoarthritis of both hands: Comment: Wrist Confirmed by x-ray October 2021. Contributing to DIPJ pain. Recent labs revealed transaminitis. She is using diclofenac gel q.h.s.. Code(s): M15.4 - Erosive (osteo)arthritis Category: Medical Plan: Repeat AST and ALT. If they remain elevated, she will need to discontinue diclofenac gel. Post marketing data reveals rare transaminitis from diclofenac gel. Return to clinic in 3 months (3) Paresthesia of hand: Comment: Right hand. Radiates to arm intermittently. EMG December 2023 normal. We discussed conservative management with empirically treating for carpal tunnel syndrome with cock-up wrist brace at night and the importance of compliance. I will also evaluate for other common causes of neuropathy such as metabolic disorders and vitamin B12 deficiency. Code(s): R20.2 - Paresthesia of skin Category: Medical Plan: Labs ordered Wear cock-up wrist brace at night only Return to clinic in 3 months. If she continues to have symptoms, we will need to pursue imaging of C-spine for consideration of nerve impingement contributing to her symptoms despite EMG not revealing cervical radiculopathy. (4) Transaminitis: Comment: Mild on labs from March 2024 Code(s): R74.01 - Elevation of levels of liver transaminase levels Category: Medical Plan: Repeat liver function tests this visit Orders: Orders TSH reflex Free T4 Today R20.2 - Paresthesia of skin Hemoglobin A1c Today R20.2 - Paresthesia of skin Vitamin B12 Today R20.2 - Paresthesia of skin Alanine Aminotransferase Today R74.01 - Elevation of levels of liver transaminase levels Aspartate Amino Transferase Today R74.01 - Elevation of levels of liver transaminase levels OT Evaluation and Treatment Today M15.4 - Erosive (osteo)arthritis, M18.11 - Unilateral primary osteoarthritis of first carpometacarpal joint, right hand, R20.2 - Paresthesia of skin Coding Level of Care Code Est Pt Level 4 (88339) Complex EM visit Add On G2211 Diagnoses Osteoarthritis of carpometacarpal (CMC) joint of right thumb M18.11 Erosive osteoarthritis of both hands M15.4 Paresthesia of hand R20.2 Transaminitis R74.01
--- OUTSIDE RECORDS SUMMARY | 2024-05-27 08:14 | XMS_ITS | Clinical Summary ---
Author Organization [facility] Address [address] [place] [address] Care Team Providers Care Internet Marketing Executive Name Role Phone Unavailable Primary Care Provider [...]
--- OUTSIDE RECORDS SUMMARY | 2024-05-27 08:14 | XMS_ITS | Clinical Summary ---
Author Organization [employer] [facility] ity Address [address] [place] [address] Care Team Providers Care Medical Imaging Technician Name Role Phone Rome Kelly MD Primary Care Provider [phone] Surgical History Surgery Date Site/Laterality Comments HYSTERECTOMY [...] age to complete this topic Care Teams Medical Imaging Technician Relationship Specialty Start Date End Date Rome Kelly MD [address] [place] [phone] PCP - General 12/04/10
== END 2024-05-27 08:46 | disposition home or self-care (01) ==
LOC: HO.RHES 08:09
PROVIDERS: PCP Internal Medicine; Visit Provider Internal Medicine Rheumatology
DX: M18.11 Unilateral primary osteoarthritis of first carpometacarpal joint, right hand (principal); M15.4 Erosive (osteo)arthritis; R20.2 Paresthesia of skin; R74.01 Elevation of levels of liver transaminase levels
CPT/HCPCS: 99214; G2211

== ENCOUNTER 2024-05-27 08:08 | Outpatient (REF) | payer MEDICARE, MEDICAID, SELFPAY ==
--- OUTSIDE RECORDS SUMMARY | 2024-05-27 08:57 | XMS_ITS | Clinical Summary ---
Author Organization [employer] [facility] ity Address [address] [place] [address] Care Team Providers Care Bull Driver Name Role Phone Rome Kelly MD Primary Care Provider [phone] Surgical History Surgery Date Site/Laterality Comments HYSTERECTOMY [...] age to complete this topic Care Teams Bull Driver Relationship Specialty Start Date End Date Rome Kelly MD [address] [place] [phone] PCP - General 12/04/10
--- OUTSIDE RECORDS SUMMARY | 2024-05-27 08:57 | XMS_ITS | Clinical Summary ---
Author Organization [facility] Address [address] [place] [address] Care Team Providers Care Tray Worker Name Role Phone Unavailable Primary Care Provider [...]
[2024-05-27 17:54] LABS: Estimated Average Glucose 103 mg/dL; Hemoglobin A1C 121.3567 umol/L; Hemoglobin A1c % 5.2 % (<6.0); Total Hemoglobin (HGBA1C) 3614.7661 umol/L
[2024-05-27 18:09] LABS: Alanine Aminotransferase 20 U/L (0-31); Aspartate Amino Transferase 20 U/L (5-31)
[2024-05-27 18:25] LABS: Vitamin B12 407 pg/mL (200-900)
[2024-05-27 18:35] LABS: TSH reflex Free T4 0.58 uIU/mL (0.32-4.0)
== END 2024-05-27 08:09 | disposition home or self-care (01) ==
LOC: HO.HKASLDS 08:08
PROVIDERS: PCP Internal Medicine; Visit Provider Internal Medicine Rheumatology
DX: R20.2 Paresthesia of skin (principal); R74.01 Elevation of levels of liver transaminase levels; Z13.1 Encounter for screening for diabetes mellitus
CPT/HCPCS: 36415; 82607; 83036; 84443; 84450; 84460; 99212

== ENCOUNTER 2024-06-03 14:58 | Outpatient (REF) | payer MEDICARE, MEDICAID, SELFPAY ==
--- OUTSIDE RECORDS SUMMARY | 2024-06-03 17:32 | XMS_ITS | Clinical Summary ---
Author Organization [facility] Address [address] [place] [address] Care Team Providers Care Packaging Associate Name Role Phone Unavailable Primary Care Provider [...]
--- OUTSIDE RECORDS SUMMARY | 2024-06-03 17:32 | XMS_ITS | Data Portability ---
Author Organization [place] [facility] Address [address] [place] [phone] Care Team Providers Care Cmm Programmer Name Role Phone SHELIA FREGOSO Primary Care [...] observ ation record ed. [email or web address] [facility] [address], [address], 01/07/2024 12:08:47 01/08/20 audio gram No observ ation record ed. BARCODE Not Available 2023 09:37:16 Result Notes None recorded. Problems Name Problem SNOMED Code Status Onset Date Resolution Date Notes Provider Name and Address Organization Details Recorded Time Sensorineural hearing loss of bilateral ears 015340801 Active 2023 DC CHONG MD [address] [place], [place] [address]MARY BETH, [phone], [place] - [facility] 20:31:54 Problem Notes None recorded. Procedures Surgical History Date Name Laterality Status Provider Name and Address Organization Details Recorded Time 01/06/20 24 Comp Audio with Tymps (49291 & 70233) completed DINA SOLIS, [facility] [address], [address], [place] - [facility] 01/06/2024 10:08:54 laparoscopy completed Shelia Rivera [place] - [facility] 01/06/2024 10:19:09 Appendectomy completed Shelia Rivera [place] - [facility] 01/06/2024 10:19:14 Hysterectomy completed Shelia Rivera [place] - [facility] 01/06/2024 10:19:20 section completed Shelia Rivera [place] - [facility] 01/06/2024 10:19:33 Imaging Results Imaging Date Name Status LastModified by Organiz ation Details LastModified Time 01/06/2024 audiogram completed [place] [id number], [address], 01/07/2024 12:08:47 01/08/2024 audiogram completed BARCODE Information [...] Details Last Updated DateTime 01/06/2024 142.24 cm 52483.49 g Shelia Rivera [place] - [facility] 01/06/2024 10:17:44 Social History None recorded. [...] SNOMED-CT Code Diagnosis ICD10 Code Diagnosis Note [id number] DC CHONG MD [facility] [address] [address] 01/06/2024 09:25:30 01/06/2024 10:46:36 Sensorineural hearing loss of bilateral ears [id number] H90.3 Patient's audiogram shows bilateral significan t [...] copy of the audiogram, [facility], and medical clearance for amplificat ion so the patient can pursue this at their convenien e*}}. Patient is medically cleared for amplificat ion {{in the right ear in the left ear bilate rally*}}. [id number] KILLIAN DIETRICH [facility] [address] [address] 01/06/2024 10:08:09 01/08/2024 13:54:22 Sensorineural hearing loss of bilateral ears [id number] H90.3 Audiologic al evaluation results: Right ear: [...] Coker Member ID Guarantor Name 01/06/2024 2 [place] [facility] Amelie Gray [id number] Amelie Hidalgo 01/06/2024 1 [place] [facility] Chau Gray [id number] Amelie Hidalgo 01/06/2024 2 [place] [facility] Amelie Gray [id number] Amelie Hidalgo Notes Date Note Type Note Provider Name and Address Organization Details Recorded Time 01/06/2024 text/html Audiological Evaluation HPIReported bypatient.Hearing loss perceived:hearing loss in both ears: no differences noted between ears Onset:gradual Use of amplification or other hearing devices:hearing aid: both ears Tinnitus reported:both ears DINA SOLIS, [facility] [address] [facility],[place] [address], [place], [address], [facility] - [facility] 01/06/2024 10:11:01 01/06/2024 text/html Patient with bilateral sensorineural hearing loss affecting the high frequencies between 2497-0548 Hz, last seen in our office back in [address] Levin. Patient reports she began losing her hearing in her 30s, and has been using hearing aids since then. Current devices that she received through [facility] audiology are currently nonfunctional. She is having significant difficulty hearing in many different listening situations, and recounts recent episode where she could not hear a fire truck coming because of the hearing loss. DC CHONG MD [address] [place] [address], [phone], [facility] - [facility] 01/06/2024 10:45:50 OBGyn Episode No OBEpisode recorded.
--- OUTSIDE RECORDS SUMMARY | 2024-06-03 17:32 | XMS_ITS | Clinical Summary ---
Author Organization [facility] ity Address [address] [place] [address] Care Team Providers Care Stack Clerk Name Role Phone Rome Kelly MD Primary Care Provider [phone] Surgical History Surgery Date Site/Laterality Comments HYSTERECTOMY [...] Influencers of Health Screening 01/23/2022 COVID-19 Vaccine (2023-2 5 season) 2023 Influenza Vaccine (Season Ended) 2024 HIB Vaccines Aged Out No longer eligi [...] age to complete this topic Meningococcal B Vaccine Aged Out No l onger eligible based on patient's age to complete [...] age to complete this topic Care Teams Stack Clerk Relationship Specialty Start Date End Date Rome Kelly MD [address] [place] [phone] PCP - General 12/04/10
== END 2024-06-03 14:59 | disposition home or self-care (01) ==
LOC: HO.HAP 14:58
PROVIDERS: Visit Provider Otolaryngology
DX: Z46.1 Encounter for fitting and adjustment of hearing aid (principal); H90.3 Sensorineural hearing loss, bilateral
CPT/HCPCS: 92591; V5275

== ENCOUNTER 2024-07-07 10:02 | Outpatient (RCR) | payer MEDICARE, MEDICAID, SELFPAY ==
--- NOTE | 2024-06-17 14:27 | MHC.OT.EP ---
[address] [phone] Occupational Therapy Plan of Care Patient Name: Amelie Gray Date of Evaluation: 06/17/24 Diagnosis: Right CMC OA Pain Location: 10/10 sharp pain through right thumb base 6/10 left thumb base Pain Score: 10 Pain Scale Used: Numeric (0 - 10) Aggravating Factors: Gripping, lifting, force Alleviating Factors: Voltaren (has stopped due to liver tests), Tylenol, enjoys heat Assessment: 48 yo female w/ hx of B/L hand pain and numbness. She has been referred to OT for treatment and custom CMC orthoses. On assessment today, she has decreased strength B/L'ly but still in functional range, good digit and wrist ROM overall, some laxity in CMCs and MCPs. She also has signs of early CTS B/L'ly, right worse than left, and she has been wearing nighttime orthosis but reports no significant changes. We have fabricated B/L CMC orthoses and will start education of positioning and stabilization/strengthening w/ goal of self management of OA symptoms. Frequency and Duration: The patient will be seen 2x/wk for 3 weeks Short Term Goals: Ind w/ orthosis wear Ind w/ joint protection techniques Progress to strengthening/stabilization program Section Crews Activities Clerk Goals: same as above Treatment Plan: Therapeutic Exercise Therapeutic Activity Home Exercise Program Splinting Patient Education Edema Control ADL Training Paraffin Fluidotherapy MHP Cold Packs Joint Mobilization Soft Tissue Mobilization Kinesiotaping Electronically Signed By: Lynne Hector, OTR/L Please Sign and return to therapist. Thank you once again for your referral.
--- NOTE | 2024-07-15 13:28 | MHC.OT.DC ---
[address] [phone] F: [phone] Occupational Therapy Discharge Note Patient Name: Amelie Umer Conde Provider: Dr Freeman Pedraza Diagnosis: Right CMC OA Date of Evaluation: 06/17/24 Date of Discharge: 07/07/24 Treatments to Date: 6 Discharge Summary: 48 yo female referred to OT for OA management. She has completed course of hand therapy and is doing well overall. Therapy goals met and Ind w/ self management. She still has some low pain stiff at times but has been educated on arthritis diagnosis and continued need for awareness with joint protection and HEP. Electronically Signed By: Lynne Hector OTR/L Please Sign and return to therapist, thank you for your referral.
== END 2024-07-15 13:29 | disposition home or self-care (01) ==
LOC: HO.OT 10:02
PROVIDERS: PCP Internal Medicine; Visit Provider Internal Medicine Rheumatology
DX: M18.11 Unilateral primary osteoarthritis of first carpometacarpal joint, right hand (principal); R20.2 Paresthesia of skin
CPT/HCPCS: 29130; 97110; 97140; 97165; 97760

== ENCOUNTER 2024-07-09 09:59 | Outpatient (REF) | payer MEDICARE, MEDICAID, SELFPAY ==
--- OUTSIDE RECORDS SUMMARY | 2024-07-09 10:19 | XMS_ITS | Clinical Summary ---
Author Organization [employer] [facility] ity Address [address] [place] [address] Care Team Providers Care Template Layout Worker Name Role Phone Rome Kelly MD Primary Care Provider [phone] Surgical History Surgery Date Site/Laterality Comments HYSTERECTOMY [...] age to complete this topic Care Teams Template Layout Worker Relationship Specialty Start Date End Date Rome Kelly MD [address] [place] [phone] PCP - General 12/04/10
--- OUTSIDE RECORDS SUMMARY | 2024-07-09 10:19 | XMS_ITS | Clinical Summary ---
Author Organization [employer] [facility] Address [address] [place] [address] Care Team Providers Care Machinery Erector Name Role Phone Unavailable Primary Care Provider [...]
--- OUTSIDE RECORDS SUMMARY | 2024-07-09 10:19 | XMS_ITS | Data Portability ---
Author Organization [place] - [facility] Address [address] [place] [phone] Care Team Providers Care Fuel System Maintenance Supervisor Name Role Phone SHELIA FREGOSO Primary Care [...] Abnormal Flag Note LastModifiedBy Organization Detail LastModifiedTime 01/07/20 24 01/06/2024 audio gram No observ ation record ed. [email or web address] [facility] [address], [address], 01/07/2024 12:08:47 01/08/20 audio gram No observ ation record ed. BARCODE Not Available 2023 09:37:16 Result Notes None recorded. Problems Name Problem SNOMED Code Status Onset Date Resolution Date Notes Provider Name and Address Organization Details Recorded Time Sensorineural hearing loss of bilateral ears 365095619 Active 2023 DC CHONG MD [address] [place], [place] [address]MARY [place], [phone], [place] - [facility] 20:31:54 Problem Notes None recorded. Procedures Surgical History Date Name Laterality Status Provider Name and Address Organization Details Recorded Time 01/06/20 24 Comp Audio with Tymps - 55528 & 80886 completed DINA SOLIS, [facility] [address], [address], [place] - [facility] 01/06/2024 10:08:54 laparoscopy completed Shelia Rivera [place] - [facility] 01/06/2024 10:19:09 Appendectomy completed Shelia Rivera [place] - [facility] 01/06/2024 10:19:14 Hysterectomy completed Shelia Rivera [place] - [facility] 01/06/2024 10:19:20 section completed Shelia Rivera [place] - [facility] 01/06/2024 10:19:33 Imaging Results Imaging Date Name Status LastModified by Organiz ation Details LastModified Time 01/06/2024 audiogram completed [place] [address] [facility] [address], [address], 01/07/2024 12:08:47 01/08/2024 audiogram completed BARCODE Information [...] Details Last Updated DateTime 01/06/2024 142.24 cm 99298.49 g Shelia Rivera [place] - [facility] 01/06/2024 10:17:44 Social History None recorded. [...] SNOMED-CT Code Diagnosis ICD10 Code Diagnosis Note [id number] DC CHONG MD [facility] [address] [address] 01/06/2024 09:25:30 01/06/2024 10:46:36 Sensorineural hearing loss of bilateral ears [id number] H90.3 Patient's audiogram shows bilateral significan t [...] copy of the audiogram, a list of [facility] providers, and medical clearance for amplificat ion so the patient can pursue this at their convenien e*}}. Patient is medically cleared for amplificat ion {{in the right ear in the left ear bilate rally*}}. [id number] KILLIAN DIETRICH [facility] [address] [address] 01/06/2024 10:08:09 01/08/2024 13:54:22 Sensorineural hearing loss of bilateral ears [id number] H90.3 Audiologic al evaluation results: Right ear: [...] Recorded Advance Directives Directive None Recorded Payers Insurance Date Sequence Insurance Name Policy Number Policy Coker Covered Member ID Coker Member ID Guarantor Name 01/09/2024 1 [place] [employer] Chau Gray [id number] Amelie Hidalgo 01/09/2024 2 [place] [facility] Amelie Gray [id number] Amelie Hidalgo Notes Date Note Type Note Provider Name and Address Organization Details Recorded Time 01/06/2024 text/html Audiological Evaluation HPIReported bypatient.Hearing loss perceived:hearing loss in both ears: no differences noted between ears Onset:gradual Use of amplification or other hearing devices:hearing aid: both ears Tinnitus reported:both ears DINA SOLIS, [facility] [address] [facility],[place] [address], [place], [address], [facility] - [facility] 01/06/2024 10:11:01 01/06/2024 text/html Patient with bilateral sensorineural hearing loss affecting the high frequencies between 2034-1000 Hz, last seen in our office back in [address] Levin. Patient reports she began losing her hearing in her 30s, and has been using hearing aids since then. Current devices that she received through [facility] audiology are currently nonfunctional. She is having significant difficulty hearing in many different listening situations, and recounts recent episode where she could not hear a fire truck coming because of the hearing loss. DC CHONG MD [address] [place] [address], [place], [address], [facility] - [facility] 01/06/2024 10:45:50 OBGyn Episode No OBEpisode recorded.
--- NOTE | 2024-07-09 12:47 | MHC.AU.HA2 ---
Hearing Instrument Fitting- Adult- Binaural Date of Visit: 07/09/24 Hearing Instruments Dispensed: Right Ear: Make, Model, Color, Serial Number: Phonak Audeo i50 R, ellis mccabe Wiring Mechanic Repair Warranty: 07/17/2027 Wiring Mechanic Loss and Damage Warranty: 07/17/2027 [facility] Service Plan: 07/09/2025 Battery Size: Rechargeable Ldr Nurse/Slim Tube: 0 M Earmold/Dome/CShell/SlimTip: canal lock silicone slimtips Type of Wax Guard: cerustop Left Ear: Make, Model, Color, Serial Number: Phonak Audeo i50 R, ellis beige Wiring Mechanic Repair Warranty: 07/17/2027 Wiring Mechanic Loss and Damage Warranty: 07/17/2027 [facility] Service Plan: 07/09/2025 Battery Size: Rechargeable Ldr Nurse/Slim Tube: 0 M Earmold/Dome/CShell/SlimTip: canal lock silicone slimtips Type of Wax Guard: cerustop Accessories/Assistive Technology: Phonak Safety Officer AMY [id number] Summary of Fitting: Fit with and oriented to binaural Phonak Audeo I 50 R HAs with silicone slim tips. Verified to L adult 5 targets. Ran feedback management. Good subjective comfort and benefit reported. VC enabled. Reviewed charging, maintenance, precautions. Connected to phone and installed mani, tested streaming. Recommendations: Recommendations: A hearing instrument follow-up was scheduled. Diagnosis Code(s): Primary Diagnosis: H90.3 Bilateral Sensorineural Hearing Loss Signature: Provider: Raiza Chapa, [facility]
== END 2024-07-09 10:00 | disposition home or self-care (01) ==
LOC: HO.HAP 09:59
PROVIDERS: Visit Provider Internal Medicine
DX: Z46.1 Encounter for fitting and adjustment of hearing aid (principal); H90.3 Sensorineural hearing loss, bilateral
CPT/HCPCS: V5011; V5020; V5160; V5261; V5264

== ENCOUNTER 2024-07-22 10:11 | Outpatient (AMB) | payer MEDICARE, MEDICAID, SELFPAY ==
--- NOTE | 2024-07-22 10:11 | A.OFFVIS_ITS ---
Intake Visit Reasons: 7m/ CT Intake Note: Patient presents today via telehealth for a 7 month follow-up/CT * Abdomen + Pelvic CT 05/26 Urology Meds:Vitamin B6 Allergies to Antibiotic:No Known Allergies Blood Thinner:None Doctor Of Podiatric Medicine Required: No Accompanied by: Self / Same As Patient Allergies No Known Allergies Allergy (Verified 08/31/24 09:44) Medication List - Last Reconciled 07/22/24 by Paola Quintanilla MD albuterol sulfate 90 mcg/actuation 0 mcg inhalation budesonide 90 mcg/actuation (Pulmicort Flexhaler) 1 inh inhalation Q12H 30 days cetirizine (All Day Allergy (cetirizine)) 10 mg PO DAILY PRN 30 days cholestyramine-aspartame 4 gram (Cholestyramine Light) 4 grams PO DAILY 90 days cyclosporine 0.05% 1 drp ophthalmic (eye) BID 30 days montelukast (Singulair) 10 mg PO DAILY 90 days pantoprazole 40 mg PO DAILY 90 days pyridoxine (vitamin B6) 100 mg PO DAILY valacyclovir 1,000 mg PO DAILY 90 days HPI Comments Details: 07/22/24-- History of Present Illness The patient is a 48-year-old female presenting with a follow-up assessment for nephrolithiasis. She has a history of kidney stones. A CT scan performed last month revealed no kidney stones present in either kidney. She reported no current symptoms related to nephrolithiasis. Hydration is emphasized as a pre ventive measure. Results - CT Scan: No kidney stones detected in either kidney Plan - Drink plenty of fluids daily to stay hydrated. - Add lemon or lemon concentrate to your water. - Continue taking vitamin B6 as prescribed. - Follow up with a renal ultrasound next year. 12/26/23--Brenda is a 48-year-old female who presents today to the office for a follow-up. Reviewed films Renal US 12/12/23- possible new renal calculus. energy conservation specialist pending. She denies hematuria, states she has back pain but not sure if it is due to her fibromyalgia or kidney stones. Plan fu in [address] stone protocol. 12/27/2022?She is followed today for renal US results. She was seen in ER on 11/26/2022 for left flank pain and dysuria. She has had urine culture sent in ER which came back positive for E.coli. She was treated with abx's and states she is doing better. She states that she is drinking adequate amount of fluids. I reviewed the CAT scan results from 11/26/2022 which was negative urolithiasis. I reviewed the renal US 12/09/22 - kidneys WNL. 12/27/2022: Evaluation today?UA? leukocytes: negative; blood: negative. Plan: Vitamin B6 100 mg daily was ordered. Follow-up in one year renal US prior. [facility] Medical History Colon adenomas Renal calculi Hearing loss, bilateral Medicare annual wellness visit, initial Abdominal pain Hearing loss Obese Asthma GERD (gastroesophageal reflux disease) Scoliosis Carpal tunnel syndrome Fibromyalgia Surgical History H/O: hysterectomy Hx of colonoscopy History of esophagogastroduodenoscopy (EGD) History of intestinal surgery History of dilation and curettage Hx of appendectomy Hx of section Family History Mother HTN (hypertension) Diverticulitis Father Diabetes Maternal Aunt Guillain-[place] syndrome Social History Housing: Apartment Alcohol intake: current Alcohol intake frequency: holidays/special occasions only Alcohol type: beer and wine Patient Tobacco Use Status: Former Tobacco user Tobacco use type: Cigarette e-Cigarette/Vaping Use: Never Used Second Hand Smoke Exposure: No service: No Current occupational status: employed 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 Current occupational exposures/hazards: No Cognitive needs: No Hearing needs: No Vision needs: Yes Telehealth Telehealth Telehealth Platform: [employer] Location of provider rendering services: practice address Location of patient: address on file Patient Identification confirmed using: Name, : Yes Telehealth method: video Patient verbally consented to treatment: Yes Patient verbally consented to billing insurance company: Yes Patient informed of any privacy concerns related to visit: Yes Results Reviewed Results Reviewed: Date of Service: 05/26/24 CLINICAL HISTORY: N20.0 - Calculus of kidney CT abdomen and pelvis without contrast Comparison: 04/14/2024 Findings: Lung bases clear. No acute bony abnormality. Liver and spleen within normal limits. Pancreas and adrenal glands unremarkable. Gallbladder contracted and not assessed. No bilateral renal stone or hydronephrosis. No focal renal abnormality or ureteral dilation. No evidence for aortic aneurysm. No free fluid or adenopathy in the pelvis. No diverticulitis. Appendectomy. Hysterectomy. No adnexal abnormality. Impression: No acute processes Reviewed films Renal US 12/12/23- possible new renal calculus. Date of Service: 12/09/22 EXAMINATION: US RETROPERITONEAL LIMITED (RENAL ONLY) CLINICAL INFORMATION: Calculus of kidney. COMPARISON: CT abdomen and pelvis 11/26/2022. Renal ultrasound 11/06/2021 and 06/14/2021. FINDINGS: RIGHT KIDNEY: 10.8 x 4.4 x 4.1 cm (SAG x AP x TRV). No hydronephrosis. No renal calculi. Renal cortical thickness is normal. Limited visualization. LEFT KIDNEY: 12.3 x 5.3 x 4.9 cm (SAG x AP x TRV). No hydronephrosis. No renal calculi. Renal cortical thickness is normal. Limited visualization. IMPRESSION: No hydronephrosis. No renal calculi. Renal cortical thickness is normal. Limited visualization. Date of Service: 11/26/22 EXAMINATION: CT ABDOMEN AND PELVIS WITHOUT CONTRAST CLINICAL INFORMATION: Left lower quadrant pain. Left flank pain. COMPARISON: Renal ultrasound November 06, 2021 FINDINGS: Visualized lung bases demonstrate mild dependent atelectasis. The liver is normal in size but demonstrates diffusely decreased attenuation. The gallbladder is normal in appearance. The pancreas, spleen and adrenal glands are unremarkable. Symmetrically sized kidneys. No renal calculi or hydronephrosis of either kidney. Normal caliber loops of small and large bowel. Unremarkable anastomotic suture line of the sigmoid colon. There is overall moderate stool burden throughout the majority the colon. The appendix is surgically absent. Normal caliber abdominal aorta. No retroperitoneal lymphadenopathy. Tiny fat-containing umbilical hernia in addition to a subcentimeter fat- containing supraumbilical hernia. The bladder is normal in appearance. Unremarkable CT appearance of the uterus. No gross free pelvic fluid. No inguinal lymphadenopathy. No acute osseous abnormality. IMPRESSION: -Moderate stool burden throughout the colon suggesting constipation. -Diffusely decreased liver attenuation suggesting hepatic steatosis. Correlation with liver enzymes recommended Assessment & Plan Assessment & Plan (1) Renal calculi: Code(s): N20.0 - Calculus of kidney Category: Medical Plan Plan fu in one year, monitor kidneys, renal US Vitamin B6 100 mg daily Medications: Refilled pyridoxine (vitamin B6) 100 mg PO DAILY 90 tabs 3RF Patient Instructions: The patient had an opportunity to ask questions regarding treatment plan. The patient expressed understanding and agreement with the above treatment plan. The patient is aware they should contact our office by phone for worsening of their current condition or the appearance of new symptoms. Compliance is encouraged with any medications and followup testing that is ordered. It is a privilege to be allowed the opportunity to participate in the urologic care of your patient. If you have any questions or concerns regarding treatment for the above conditions please do not hesitate to contact me. The office telephone contact is [phone]. This note is constructed in part using voice recognition software. While every effort has been made to ensure accuracy energy conservation specialist errors may have been included. Yours sincerely, Paola Quintanilla MD Coding Level of Care Code Tele Est Pt Level 3 (95394) Diagnoses Renal calculi N20.0
--- OUTSIDE RECORDS SUMMARY | 2024-07-22 10:30 | XMS_ITS | Data Portability ---
Author Organization [place] - [facility] Address [address] [place] [address] Care Team Providers Care Reception Specialist Name Role Phone SHELIA FREGOSO Primary Care Provider [phone] Assessment Encounter Date Assessment Date Assessment LastModified [...] ation record ed. [email or web address] [facility] Of [address], [address], 01/07/2024 12:08:47 01/08/20 audio gram No observ ation record ed. BARCODE Not Available 2023 09:37:16 Result Notes None recorded. Problems Name Problem SNOMED Code Status Onset Date Resolution Date Notes Provider Name and Address Organization Details Recorded Time Sensorineural hearing loss of bilateral ears 574048061 Active 2023 DC CHONG MD [address] [place], [place] [address]MARY BETH, [address], [place] - [facility] 20:31:54 Problem Notes None recorded. Procedures Surgical History Date Name Laterality Status Provider Name and Address Organization Details Recorded Time 01/06/20 24 Comp Audio with Tymps - 96922 & 66640 completed DINA SOLIS, AUD 100 [facility],[address], [address], [place] - [facility] 01/06/2024 10:08:54 laparoscopy completed Shelia Rivera [place] - [facility] 01/06/2024 10:19:09 Appendectomy completed Shelia Rivera [place] - [facility] 01/06/2024 10:19:14 Hysterectomy completed Shelia Rivera [place] - [facility] 01/06/2024 10:19:20 section completed Shelia Rivera [place] - [facility] 01/06/2024 10:19:33 Imaging Results None recorded. Procedure Notes None recorded. Medical Equipment None [...] Details Last Updated DateTime 01/06/2024 142.24 cm 49659.49 g Shelia Rivera [place] - [facility] 01/06/2024 10:17:44 Social History None recorded. Functional Status None recorded. Mental Status None recorded. Family History Nothing Reported. Medical History Condition Response Arthritis Y Kidney Disease Y Asthma Y Gynecological HistoryNo gynecological history recorded. Obstetrics History GPAL:G 0 P 0 0 0 0 Past Encounters Encounter ID Performer Location Encounter Start Date Encounter Closed Date Diagnosis/Indication Diagnosis SNOMED-CT Code Diagnosis ICD10 Code Diagnosis Note [id number] DC CHONG MD [facility] [address] [address] 01/06/2024 09:25:30 01/06/2024 10:46:36 Sensorineural hearing loss of bilateral ears 532139444 H90.3 Patient's audiogram shows bilateral significan t high-frequ ency sensorineu ral hearing loss with well maintained speech discrimina tion. There is enough hearing loss to affect day-to-day hearing performanc e. We discussed in detail the pros and cons of amplificat ion (hearing aids). We discussed the connection between untreated hearing loss and increased risk of dementia, falling and accidents. After full discussion , the patient expressed interest in learning more about amplificat ion options. Accordingl y I have provided a copy of the audiogram, a list of [facility] hearing aid providers, and medical clearance for amplificat ion so the patient can pursue this at their convenien e. Patient is medically cleared [place]ificat [place]. [id number] KILLIAN DIETRICH [facility] [address] [address] 01/06/2024 10:08:09 01/08/2024 13:54:22 Sensorineural hearing loss of bilateral ears 826001825 H90.3 Audiologic al evaluation results: Right ear: Normal sloping to profound sensorineu ral hearing loss with excellent word recognitio n. Left ear: Normal sloping to severe sensorineu ral hearing loss with excellent word recognitio n. Tympanomet ry: Right Ear:Type A Left Ear:Type A Health Concerns Section Related Observation LastModified by Organization Detai ls LastModified Time None Recorded Concern Status LastModified by Organization Details LastModified Time None Recorded Advance Directives Directive None Recorded Payers Insurance Date Sequence Insurance Name Policy Number Policy Coker Covered Member ID Coker Member ID Guarantor Name 01/09/2024 1 [place]: [employer] Chau Gray [id number] Amelie Hidalgo 01/09/2024 2 [place] [facility] Amelie Gray [id number] Amelie Hidalgo Notes Date Note Type Note Provider Name and Address Organization Details Recorded Time 01/06/2024 text/html Audiological Evaluation HPIReported bypatient.Hearing loss perceived:hearing loss in both ears: no differences noted between ears Onset:gradual Use of amplification or other hearing devices:hearing aid: both ears Tinnitus reported:both ears KILLIAN DIETRICH [address] [facility],[place] [address], [place], [address], [facility] - [facility] 01/06/2024 10:11:01 01/06/2024 text/html Patient with bilateral sensorineural hearing loss affecting the high frequencies between 0798-2242 Hz, last seen in our office back [place] [address] Levin. Patient reports she began losing her hearing in her 30s, and has been using hearing aids since then. Current devices that she received through [facility] audiology are currently nonfunctional. She is having significant difficulty hearing in many different listening situations, and recounts recent episode where she could not hear a fire truck coming because of the hearing loss. DC CHONG MD [address] [facility],[place] [address], [place], [address], [facility] 01/06/2024 10:45:50 OBGyn Episode No OBEpisode recorded.
== END 2024-07-22 15:51 | disposition home or self-care (01) ==
LOC: HO.HUSH 10:11
PROVIDERS: PCP Internal Medicine; Visit Provider Urology
DX: N20.0 Calculus of kidney (principal)
CPT/HCPCS: 99213

== ENCOUNTER → 2024-07-22 10:11 | Outpatient (BNVA) | payer MEDICARE, MEDICAID, SELFPAY | PROVIDERS: PCP Internal Medicine; Visit Provider Urology ==

== ENCOUNTER 2024-08-05 09:54 | Outpatient (REF) | payer MEDICARE, MEDICAID, SELFPAY ==
--- NOTE | 2024-08-05 10:26 | MHC.AU.HA3 ---
Hearing Instrument Follow-Up- Binaural Date of Visit: 08/05/24 Right Ear: Remigio, , Color, Serial Number: Quang Reneeo [id number] [employer] Repair Warranty: 07/17/2027 [employer] Loss and Damage Warranty: 07/17/2027 [facility] Service Plan: 07/09/2025 Battery Size: Rechargeable Records Officer/Slim Tube: 0 M Earmold/Dome/CShell/SlimTip:canal lock silicone slimtips Type of Wax Guard: cerustop Dispensed By: [facility] Date of Fittin07/09/2024 Left Ear: Remigio, , Color, Serial Number: Quang Navarrete [id number] [employer] Operator Repair Warranty: 07/17/2027 [employer] Loss and Damage Warranty: 07/17/2027 [facility] Service Plan: 07/09/2025 Battery Size: Rechargeable Records Officer/Slim Tube: 0 M Earmold/Dome/CShell/SlimTip: canal lock silicone slimtips Type of Wax Guard: cerustop Dispensed By: [facility] Date of Fittin07/09/2024 Follow-Up Summary: Seen for follow up. Reports good satisfaction with the hearing aids. Reports no need for programming adjustment at this time. Reports earmolds are fitting will. Happy with phone connectivity. She will continue to have hearing tested at ENT, advised to return if adjustment needed with updated hearing evaluations. Recommendations: Recommendations: Hearing instrument follow-up or maintenance as needed. Diagnosis Code(s): Primary Diagnosis: H90.3 Bilateral Sensorineural Hearing Loss Signature: Provider: Raiza Chapa, [facility]
--- OUTSIDE RECORDS SUMMARY | 2024-08-05 11:07 | XMS_ITS | Data Portability ---
Author Organization [place] - [facility] Address [address] [place] [address] Care Team Providers Care Pin Puller Name Role Phone SHELIA FREGOSO Primary Care Provider [phone] Assessment Encounter Date Assessment Date Assessment LastModified [...] observ ation record ed. [email or web address] [facility] [address], [address], 01/07/2024 12:08:47 01/08/20 audio gram No observ ation record ed. BARCODE Not Available 2023 09:37:16 Result Notes None recorded. Problems Name Problem SNOMED Code Status Onset Date Resolution Date Notes Provider Name and Address Organization Details Recorded Time Sensorineural hearing loss of bilateral ears 794289421 Active 2023 DC CHONG MD [address] [place], [place] [address]MARY B[place], [address], [place] - [facility] 20:31:54 Problem Notes None recorded. Procedures Surgical History Date Name Laterality Status Provider Name and Address Organization Details Recorded Time 01/06/20 24 Comp Audio with Tymps - 12669 & 73707 completed DINA SOLIS, AUD 100 [facility],[address], [address], [place] - [facility] 01/06/2024 10:08:54 laparoscopy completed Shelia Rivera [place] - [facility] 01/06/2024 10:19:09 Appendectomy completed Shelia Rivera [place] - [facility] 01/06/2024 10:19:14 Hysterectomy completed Shelia Rivera [place] - [facility] 01/06/2024 10:19:20 section completed Shelia Rivera [place] - [facility] 01/06/2024 10:19:33 Imaging Results None recorded. Procedure [...] Details Last Updated DateTime 01/06/2024 142.24 cm 88730.49 g Shelia Rivera [place] - [facility] 01/06/2024 10:17:44 Social History None recorded. [...] SNOMED-CT Code Diagnosis ICD10 Code Diagnosis Note [id number] DC CHONG MD [facility] [address] [address] 01/06/2024 09:25:30 01/06/2024 10:46:36 Sensorineural hearing loss of bilateral ears [id number] H90.3 Patient's audiogram shows bilateral significan t [...] copy of the audiogram, a list of [facility] hearing aid providers, and medical clearance for amplificat ion so the patient can pursue this at their convenien e. Patient is medically [place]. [id number] KILLIAN DIETRICH [facility] [address] [address] 01/06/2024 10:08:09 01/08/2024 13:54:22 Sensorineural hearing loss of bilateral ears [id number] H90.3 Audiologic al evaluation results: Right ear: [...] Member ID Guarantor Name 01/09/2024 1 [place]IC[place]: [id number] Chau Gray [id number] Amelie Hidalgo 01/09/2024 2 [place] [facility] Amelie Gray [id number] Amelie Hidalgo Notes Date Note Type Note Provider Name and Address Organization Details Recorded Time 01/06/2024 text/html Audiological Evaluation HPIReported bypatient.Hearing loss perceived:hearing loss in both ears: no differences noted between ears Onset:gradual Use of amplification or other hearing devices:hearing aid: both ears Tinnitus reported:both ears KILLIAN DIETRICH [address] [facility],[place] [address], [place], [address], [facility] - [facility] 01/06/2024 10:11:01 01/06/2024 text/html Patient with bilateral sensorineural hearing loss affecting the high frequencies between 9608-9977 Hz, last seen in our office back [place] [address] Levin. Patient reports she began losing her hearing in her 30s, and has been using hearing aids since then. Current devices that she received through [facility] audiology are currently nonfunctional. She is having significant difficulty hearing in many different listening situations, and recounts recent episode where she could not hear a fire truck coming because of the hearing loss. DC CHONG MD [address] [facility],[place] [address], [place], [address], [facility] 01/06/2024 10:45:50 OBGyn Episode No OBEpisode recorded.
== END 2024-08-05 09:55 | disposition home or self-care (01) ==
LOC: HO.HAP 09:54
PROVIDERS: PCP Internal Medicine; Visit Provider Otolaryngology
DX: Z13.89 Encounter for screening for other disorder (principal)

== ENCOUNTER 2024-08-31 09:34 | Outpatient (AMB) | payer MEDICARE, MEDICAID, SELFPAY ==
--- NOTE | 2024-08-31 09:39 | A.OFFVIS_ITS ---
Vital Signs 08/31/24 09:40 Height 4 ft 8 in Weight 128 lb 11.999 oz BMI 28.9 BP 100/70 Blood Pressure Location Rt brachial Position Sitting Pulse 68 Pulse Source Pulse Oximeter Pulse Oximetry (%) 98 Oxygen Delivery Method Room Air Intake Visit Reasons: 3 Months Intake Note: Patient presents today for an follow up. Allergies No Known Allergies Allergy (Verified 08/31/24 09:44) HPI HPI 3 Months: Details: Cockup wrist braces bilateral were ineffective. Still wakes up with numb hands R>L. SOmetimes occures during the day. Completed OT without benfit. Still does exercises TID. Uses diclofenac gel PRn pain. Parafin wax bath has been helpful. [facility] Medical History Colon adenomas Renal calculi Hearing loss, bilateral Medicare annual wellness visit, initial Abdominal pain Hearing loss Obese Asthma GERD (gastroesophageal reflux disease) Scoliosis Carpal tunnel syndrome Fibromyalgia Surgical History H/O: hysterectomy Hx of colonoscopy History of esophagogastroduodenoscopy (EGD) History of intestinal surgery History of dilation and curettage Hx of appendectomy Hx of section Family History Mother HTN (hypertension) Diverticulitis Father Diabetes Maternal Aunt Guillain-[place] syndrome Social History Housing: Apartment Alcohol intake: current Alcohol intake frequency: holidays/special occasions only Alcohol type: beer and wine Patient Tobacco Use Status: Former Tobacco user Tobacco use type: Cigarette e-Cigarette/Vaping Use: Never Used Second Hand Smoke Exposure: No service: No Current occupational status: employed 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 [place] nodes present with tenderness of right 2nd and 3rd DIPJ. She is able to ware server hands but ware server is weak L>R. Office Procedures AMB Joint Injection/Aspiration Joint Injection/Aspiration Details: Bilateral CMC joint Prep: site was prepped using aseptic technique Injected into each site: 10 mg of, Kenalog, with 0.25 mL of and 1% plain lidocaine Procedure: Informed verbal consent was obtained. The patient tolerated the procedure well. Postprocedure protocol was discussed with patient. Coding - Small Joint Procedure code (CPT) selection complete AMB Joint Injection/Aspiration Coding - Small Joint Procedure code (CPT) selection complete Office Meds lidocaine (PF) 10 mg/mL (1 %) injection solution Performing Provider: Freeman Pedraza MD Performing Location: [facility] [place] [facility] Administered by: Freeman Pedraza MD on 08/31/24 10:11 Dose Route Admin Location Dispensed Lot Number Expiration Date [facility] [employer] 2.5 mg Infiltration CMC joint 2 mL [id number] 07/24/26 10138-559-76 [employer] Total Dispensed Waste 2 mL 87.5 % Kenalog 40 mg/mL suspension for injection Performing Provider: Freeman Pedraza MD Performing Location: [facility] [place] [facility] Administered by: Freeman Pedraza MD on 08/31/24 10:11 Dose Route Admin Location Dispensed Lot Number Expiration Date [facility] [employer] 10 mg intra-articular CMC joint 1 mL [id number] 09/23/26 82780-102-55 [employer] Total Dispensed Waste 1 mL 75 % lidocaine (PF) 10 mg/mL (1 %) injection solution Performing Provider: Freeman Pedraza MD Performing Location: [facility] [place] [facility] Administered by: Freeman Pedraza MD on 08/31/24 10:11 Dose Route Admin Location Dispensed Lot Number Expiration Date [facility] [employer] 2.5 mg Infiltration CMC joint 2 mL [id number] 07/24/26 27868-641-12 [employer] Total Dispensed Waste 2 mL 87.5 % Kenalog 40 mg/mL suspension for injection Performing Provider: Freeman Pedraza MD Performing Location: [facility] [place] [facility] Administered by: Freeman Pedraza MD on 08/31/24 10:11 Dose Route Admin Location Dispensed Lot Number Expiration Date [facility] [employer] 10 mg intra-articular 1 mL [id number] 09/23/26 91489-387-03 [employer] Total Dispensed Waste 1 mL 75 % Results Reviewed Results Reviewed: Patient: Amelie Gray MR#: [id number] : 1975 Acct:[id number] Date: 01/20/24 Loc: HO.NEURO Attending Dr: Efren Zambrano MD Ordering Physician: Efren Zambrano MD Date of Service: 01/20/24 Procedure(s): NE electromyogram (EMG) Accession Number(s): [id number] cc: Efren Zambrano MD~ Bilateral median and ulnar motor and sensory studies were performed. Bilateral radial and median and lateral antecubital brachial sensory studies were performed and needle examination was performed. IMPRESSION: This is an unremarkable study with no evidence of entrapment neuropathy or radiculopathy. Assessment & Plan Assessment & Plan (1) Osteoarthritis of carpometacarpal (CMC) joint of right thumb: Comment: Right CMC pain is greater than left CMC pain. Failed bracing, OT and diclofenac gel. Code(s): M18.11 - Unilateral primary osteoarthritis of first carpometacarpal joint, right hand Category: Medical Plan: Continue OT exercises TID She will wear CMC splints during the day She received bilateral cortisone injections to CMCs Return to clinic in 3 months (2) Erosive osteoarthritis of both hands: Comment: Contributing to DIPJ pain. She is using diclofenac gel q.h.s.. Code(s): M15.4 - Erosive (osteo)arthritis Category: Medical Plan: She diclofenac gel PRN pain Return to clinic in 3 months (3) Paresthesia of hand: Comment: Right hand> Left hand. EMG December 2023 normal. Failed cockup wrist braces. Secondary causes of neuropathy such as metabolic disorders (TSH, DM) and vitamin B12 deficiency is negative. Code(s): R20.2 - Paresthesia of skin Category: Medical Plan: EMG ordered UE bilateral. If negative, I will order c-spine x-ray Wear cock-up wrist brace at night only Return to clinic in 3 months (4) Transaminitis: Comment: Mild on labs from March 2024. Resolved. Code(s): R74.01 - Elevation of levels of liver transaminase levels Category: Medical Plan: No further orders Orders: Orders AMB Joint Injection/Aspiration 08/31/24 M18.11 - Unilateral primary osteoarthritis of first carpometacarpal joint, right hand AMB Joint Injection/Aspiration 08/31/24 M18.11 - Unilateral primary osteoarthritis of first carpometacarpal joint, right hand NE electromyogram (EMG) 08/31/24 R20.2 - Paresthesia of skin NE nerve conduction velocity 08/31/24 R20.2 - Paresthesia of skin Coding Level of Care Code Est Pt Level 4 (98676) Complex EM visit Add On G2211 Diagnoses Osteoarthritis of carpometacarpal (CMC) joint of right thumb M18.11 Erosive osteoarthritis of both hands M15.4 Paresthesia of hand R20.2 Transaminitis R74.01 CPT Codes Coding - 60706 - Small joint: 41148 - Small Joint ([id number]) Coding - 39862 - Small joint: 54691 - Small Joint ([id number])
[2024-08-31 09:40] VITALS: BP 100/70; PULSE 68; O2SAT 98; BMI 28.9
--- OUTSIDE RECORDS SUMMARY | 2024-08-31 10:05 | XMS_ITS | Clinical Summary ---
Author Organization [facility] Address [address] [place] [address] Care Team Providers Care Manager Studio Name Role Phone Unavailable Primary Care Provider [...]
--- OUTSIDE RECORDS SUMMARY | 2024-08-31 10:05 | XMS_ITS | Clinical Summary ---
Author Organization [facility] ity Address [address] [place] [address] Care Team Providers Care Radiotelegraphist Name Role Phone Rome Kelly MD Primary Care Provider [phone] Surgical History Surgery Date Site/Laterality Comments HYSTERECTOMY [...] 2023-2 5 season) 2023 Influenza Vaccine (#1) 2024 HIB Vaccines Aged Out No longer [...] 5 Years) and At-Risk Patients (6 to 49 Years) Aged Out No longer eligible b ased on patient's age to complete this topic RSV Immunization Patients Un dixon 20 months Aged Out No longer eligible b ased on patient's age to complete this topic Varicella Vaccines Aged Out No longer eligible based on patient's age to complete this topic Care Teams Radiotelegraphist Relationship Specialty Start Date End Date Rome Kelly MD [address] [place] [id number] PCP - General 12/04/10
--- OUTSIDE RECORDS SUMMARY | 2024-08-31 10:05 | XMS_ITS | Data Portability ---
Author Organization [facility] - [facility], Allergy Address [address] [place] [phone] Care Team Providers Care International Representative Name Role Phone SHELIA FREGOSO Primary Care [...] observ ation record ed. [email or web address] [facility] Of [address], [address], 01/07/2024 12:08:47 01/08/20 audio gram No observ ation record ed. BARCODE Not Available 2023 09:37:16 Result Notes None recorded. Problems Name Problem SNOMED Code Status Onset Date Resolution Date Notes Provider Name and Address Organization Details Recorded Time Sensorineural hearing loss of bilateral ears [id number] Active 2023 DC CHONG MD [address] [place], [place] [address]d[place], [address], [place] - [facility] 20:31:54 Problem Notes None recorded. Procedures Surgical History Date Name Laterality Status Provider Name and Address Organization Details Recorded Time 01/06/20 24 Comp Audio with Tymps - 61343 & 63852 completed DINA SOLIS, [facility] [address] [facility] [address], [place], [address], [place] - [facility] 01/06/2024 10:08:54 laparoscopy completed Shelia Rivera [place] - [facility] 01/06/2024 10:19:09 Appendectomy completed Shelia Rivera MA [facility] 01/06/2024 10:19:14 Hysterectomy completed Shelia Rivera [place] - [facility] 01/06/2024 10:19:20 section completed Shelia Rivera MA [facility] 01/06/2024 10:19:33 Imaging Results None [...] Details Last Updated DateTime 01/06/2024 142.24 cm 65252.49 g Shelia Rivera [place] - [facility] 01/06/2024 10:17:44 Social History None [...] SNOMED-CT Code Diagnosis ICD10 Code Diagnosis Note [id number] DC CHONG MD [facility] [address] [address] 01/06/2024 09:25:30 01/06/2024 10:46:36 Sensorineural hearing loss of bilateral ears [id number] H90.3 Patient's audiogram shows bilateral significan t [...] copy of the audiogram, a list of [facility] hearing aid providers, and medical clearance for amplificat ion so the patient can pursue this at their convenien e. Patient [place] medically [place]. [id number] KILLIAN DIETRICH [facility] [address] [address] 01/06/2024 10:08:09 01/08/2024 13:54:22 Sensorineural hearing loss of bilateral ears [id number] H90.3 Audiologic al evaluation results: Right ear: [...] Member ID Guarantor Name 01/09/2024 1 MEDICARE B-[place]: [employer] Chau Gray [id number] Amelie Hidalgo 01/09/2024 2 [place] [facility] Amelie Gray [id number] Amelie Hidalgo Notes Date Note Type Note Provider Name and Address Organization Details Recorded Time 01/06/2024 text/html Audiological Evaluation HPIReported bypatient.Hearing loss perceived:hearing loss in both ears: no differences noted between ears Onset:gradual Use of amplification or other hearing devices:hearing aid: both ears Tinnitus reported:both ears KILLIAN DIETRICH [address] [facility],[place] [address], [place], [address], [facility] - [facility] 01/06/2024 10:11:01 01/06/2024 text/html Patient with bilateral sensorineural hearing loss affecting the high frequencies between 2740-0490 Hz, last seen in our office back in [address] Levin. Patient reports she began losing her hearing in her 30s, and has been using hearing aids since then. Current devices that she received through [facility] audiology are currently nonfunctional. She is having significant difficulty hearing in many different listening situations, and recounts recent episode where she could not hear a fire truck coming because of the hearing loss. DC CHONG MD [address] [facility],[place] [address], [place], [address], [facility] 01/06/2024 10:45:50 OBGyn Episode No OBEpisode recorded.
== END 2024-08-31 10:23 | disposition home or self-care (01) ==
LOC: HO.RHES 09:35
PROVIDERS: PCP Internal Medicine; Visit Provider Internal Medicine Rheumatology
DX: M18.0 Bilateral primary osteoarthritis of first carpometacarpal joints (principal)
CPT/HCPCS: 20600; 99214; G2211

== ENCOUNTER → 2024-08-31 09:34 | Outpatient (BNVA) | payer MEDICARE, MEDICAID, SELFPAY | PROVIDERS: PCP Internal Medicine; Visit Provider Internal Medicine Rheumatology | DX: M18.11 Unilateral primary osteoarthritis of first carpometacarpal joint, right hand (principal); M15.4 Erosive (osteo)arthritis; R20.2 Paresthesia of skin; R74.01 Elevation of levels of liver transaminase levels; Z79.52 Long term (current) use of systemic steroids; Z79.899 Other long term (current) drug therapy | CPT/HCPCS: 20600; 99212; J2003; J3300 ==

== ENCOUNTER 2024-10-04 15:09 | Outpatient (AMB) | payer MEDICARE, MEDICAID, SELFPAY ==
--- OUTSIDE RECORDS SUMMARY | 2024-10-04 15:29 | XMS_ITS | Clinical Summary ---
Author Organization [facility] ity Address [address] [place] [address] Care Team Providers Care Pyroglazer Name Role Phone Rome Kelly MD Primary Care Provider [phone] Surgical History Surgery Date Site/Laterality Comments HYSTERECTOMY [...] Smear 1997 Colorectal Cancer Screening: Colonoscopy 01/23/2022 HIV Screening 01/23/2022 Hepatitis C Screening 01/23/2022 Social Influencers of Health Screening 01/23/2022 COVID-19 Vaccine (1 - 2023-2 5 season) 2023 Depression Screening 02/25/2024 Influenza Vaccine (#1) 2024 HIB Vaccines Aged [...] age to complete this topic Care Teams Pyroglazer Relationship Specialty Start Date End Date Rome Kelly MD [address] [place] [phone] PCP - General 12/04/10
--- OUTSIDE RECORDS SUMMARY | 2024-10-04 15:29 | XMS_ITS | Clinical Summary ---
Author Organization [facility] Address [address] [place] [address] Care Team Providers Care Welder Production Line Combination Name Role Phone Unavailable Primary Care Provider [...]
--- NOTE | 2024-10-04 15:33 | MHC.PC.OV ---
Vital Signs 10/04/24 15:36 Height 4 ft 8 in Weight 126 lb 6 oz BMI 28.3 BP 104/70 Blood Pressure Location Lt brachial Position Sitting Pulse 98 Pulse Source Pulse Oximeter Pulse Oximetry (%) 99 Oxygen Delivery Method Room Air Intake Visit Reasons: Side effect from medication Needle Loom Setter Required: No Accompanied by: Self / Same As Patient Allergies pregabalin Adverse Reaction (Intermediate, Verified 10/04/24 16:04) tachycardia Medication List - Last Reconciled 10/04/24 by Shelia Perez MD albuterol sulfate 90 mcg/actuation 0 mcg inhalation budesonide 90 mcg/actuation (Pulmicort Flexhaler) 1 inh inhalation Q12H 30 days cetirizine (All Day Allergy (cetirizine)) 10 mg PO DAILY PRN 30 days cholestyramine-aspartame 4 gram (Cholestyramine Light) 4 grams PO DAILY 90 days cyclosporine 0.05% 1 drp ophthalmic (eye) BID 30 days montelukast (Singulair) 10 mg PO DAILY 90 days pantoprazole 40 mg PO DAILY 90 days pyridoxine (vitamin B6) 100 mg PO DAILY valacyclovir 1,000 mg PO DAILY 90 days Tobacco use date assessed: 10/04/24 Dental Screening Dental Screen Date: 10/04/24 Did you have a dental visit in the last 12 months?: No Did you have a dental problem in the last 6 months where you did not have access to dental care?: No Was dental information given to patient?: No HPI HPI Comments History of Present Illness Details The patient is a 48-year-old female presenting with fibromyalgia and menopausal symptoms. She reports that gabapentin has not provided significant relief for her fibromyalgia symptoms, and she has discontinued its use. Previously, she was switched from gabapentin to pregabalin (Lyrica), which resulted in adverse effects including tachycardia and cognitive disturbances, leading to its discontinuation. The patient also reports experiencing menopausal symptoms, including night sweats and fluctuations in body temperature, which she attributes to a hysterectomy performed a year ago. She has experienced weight loss and decreased appetite, and she is considering the use of vitamin supplements such as Estroven to manage her symptoms. [facility] Medical History (Updated 10/04/24 @ 16:05 by Shelia Perez MD) Colon adenomas Renal calculi Hearing loss, bilateral Medicare annual wellness visit, initial Abdominal pain Hearing loss Obese Asthma GERD (gastroesophageal reflux disease) Scoliosis Carpal tunnel syndrome Fibromyalgia Surgical History H/O: hysterectomy Hx of colonoscopy History of esophagogastroduodenoscopy (EGD) History of intestinal surgery History of dilation and curettage Hx of appendectomy Hx of section Family History Mother HTN (hypertension) Diverticulitis Father Diabetes Maternal Aunt Guillain-[place] syndrome Social History Housing: Apartment Alcohol intake: current Alcohol intake frequency: holidays/special occasions only Alcohol type: beer and wine Patient Tobacco Use Status: Former Tobacco user Tobacco use type: Cigarette e-Cigarette/Vaping Use: Never Used Second Hand Smoke Exposure: No service: No Current occupational status: employed 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 1. Little interest or pleasure in doing things: not at all 2. Feeling down, depressed, or hopeless: not at all 3. Trouble falling or staying asleep, or sleeping too much: several days 4. Feeling tired or having little energy: several days 5. Poor appetite or overeating: several days 6. Feeling bad about yourself - or that you are a failure or have let yourself or your family down: not at all 7. Trouble concentrating on things, such as reading the newspaper or watching television: not at all 8. Moving or speaking so slowly that other people could have noticed. Or the opposite - being so fidgety or restless that you have been moving around a lot more than usual: not at all 9. Thoughts that you would be better off or of hurting yourself in some way: not at all Total score: 3 Depression Screening Interpretation: Positive Depression Screening Follow-up: Existing condition and Follow-up Visit Requested Depression Screening Done: Yes 03597 - PHQ-9 Billing: Yes Source: Developed by Drs. Srinivasa Lindsay, Josse Muñozke and colleagues, with an educational mira from [employer]. Thrive Questionnaire Date Thrive assessed: 10/04/24 I am a: Patient What is your living situation today?: I have a steady place to live Within the past 12 months, did the food you bought not last and you didn't have the money to get more?: Never true Within the past 12 months, did you worry whether your food would run out before you got money to buy more?: Never true Do you have trouble paying for medicines?: No Do you have trouble getting transportation to medical appointments?: No Do you have trouble paying your heating and electricity bill?: No Do you have trouble taking care of your child, family member or friend?: No Do you have trouble with day-to-day activities such as bathing, preparing meals, shopping, managing finances, etc.?: No Are you currently unemployed and looking for a job?: No Are you interested in more education?: I choose not to answer this question Please select the resources that you would like help with: None Currently or been in a relationship where the following occur: No concerns reported THRIVE Score: 0 AUDIT C Alcohol Use Questionnaire (AUDIT-C) 1. How often do you have a drink containing alcohol?: 2-4 times a month 2. How many drinks containing alcohol do you have on a typical day when you are drinking?: 3 or 4 3. How often do you have six or more drinks on one occasion?: Never Total Score: 3 Score Reviewed/Action Taken: No RENATO-7 AMB Questionnaire RENATO-7 Date RENATO - 7 assessed: 10/04/24 Feeling nervous, anxious, or on edge: 1 = Several days Not being able to stop or control worryin = Not at all Worrying too much about different things: 1 = Several days Trouble relaxin = Several days Being so restless that it is hard to sit still: 1 = Several days Becoming easily annoyed or irritable: 0 = Not at all Feeling afraid as if something awful might happen: 0 = Not at all Total RENATO-7 score (0-4 normal; 5-9 mild; 10-14 moderate; 15-21 severe): 4 Source: Developed by Drs. Srinivasa Lindsay, Josse Muñoz and colleagues, with an educational mira from [employer]. RENATO-7 Assessment Billing RENATO-7 Assessment Tool: RENATO-7 Assessment 94368 Review of Systems Const All systems reviewed & are unremarkable except as noted in HPI and below Card Denies chest pain at rest, Denies chest pain with activity, Denies edema, Denies irregular heart rhythm, Denies claudication, Denies dyspnea, Denies dyspnea on exertion, Denies orthopnea, Denies paroxysmal nocturnal dyspnea and Denies slow heart rate Resp Denies cough, Denies dyspnea and Denies dyspnea on exertion GI Denies abdominal pain, Denies change in bowel habits, Denies excessive flatus, Denies nausea and Denies vomiting Physical exam (Primary Care) Vital Signs: Last Vital Signs Pulse 98 10/04/24 15:36 BP 104/70 10/04/24 15:36 Pulse Ox 99 10/04/24 15:36 Oxygen Delivery Method Room Air 10/04/24 15:36 BMI result Body Mass Index 28.3 Tobacco/Smoking Status: Tobacco use Status Tobacco use date assessed 10/04/24 10/04/24 15:38 Patient Tobacco Use Status Former Tobacco user 10/04/24 15:33 Tobacco use type Cigarette 10/04/24 15:33 e-Cigarette/Vaping Use Never Used 10/04/24 15:33 PHQ-9: PHQ-9 Score PHQ-9: Total score 3 10/04/24 16:04 Depression Screening Interpretation: Positive Depression Screening Follow-up: Existing condition and Follow-up Visit Requested Thrive Assessment: Date of Thrive Assessment Date Thrive assessed 10/04/24 10/04/24 15:33 Currently or been in a relationship where the following occur: No concerns reported Resp Effort & Inspection: normal respiratory effort Auscultation: clear to auscultation bilaterally Cardio Jugular venous distension: no JVD Rate: regular rate Rhythm: regular rhythm Heart sounds: S1 normal heart sound present and S2 normal heart sound present Extrem General: Yes full ROM Coding Level of Care Code Est Pt Level 4 (22724) Complex EM visit Add On G2211 Diagnoses Renal calculi N20.0 Menopause Z78.0 Fibromyalgia M79.7 Mild persistent asthma without complication J45.30 Asthma severity: mild Asthma persistence: persistent Asthma complication type: uncomplicated Additional Codes RENATO-7 Assessment Billing - RENATO-7 Assessment Tool: RENATO-7 Assessment 92996 ([id number]) PHQ-9 - 21316 - PHQ-9 Billing: Yes ([id number]) Time Spent (min) 23 Assessment & Plan Assessment & Plan (1) Renal calculi: Code(s): N20.0 - Calculus of kidney Category: Medical (2) Menopause: Code(s): Z78.0 - Asymptomatic menopausal state Category: Medical (3) Fibromyalgia: Code(s): M79.7 - Fibromyalgia Category: Medical (4) Asthma: Code(s): J45.909 - Unspecified asthma, uncomplicated Category: Medical Qualifiers: Asthma severity: mild Asthma persistence: persistent Asthma complication type: uncomplicated Qualified Code(s): J45.30 - Mild persistent asthma, uncomplicated Plan The patient will discontinue gabapentin as it has not provided relief for fibromyalgia symptoms. Considering the adverse effects experienced with pregabalin, an alternative medication, duloxetine, was discussed as a potential treatment option, starting with a low dose to monitor for side effects. For menopausal symptoms, the patient is advised to consider [id number]-hdm-[id number] vitamin supplements such as Estroven, which may help alleviate symptoms without the use of estrogen. A follow-up with a admissions coordinator is recommended to further evaluate menopausal symptoms and consider additional treatment options such as progesterone therapy. Patient was informed and verbally consented to the use of an ambient scribe for clinic note documentation during this visit. Orders: Referrals CAN LINE OPERATOR Referral Z78.0 - Asymptomatic menopausal state
[2024-10-04 15:36] VITALS: BP 104/70; PULSE 98; O2SAT 99; BMI 28.3
== END 2024-10-04 16:08 | disposition home or self-care (01) ==
LOC: HO.HMCH 15:09
PROVIDERS: PCP Internal Medicine; Visit Provider Internal Medicine
DX: N20.0 Calculus of kidney (principal); Z78.0 Asymptomatic menopausal state; M79.7 Fibromyalgia; J45.30 Mild persistent asthma, uncomplicated

== ENCOUNTER → 2024-10-04 15:09 | Outpatient (BNVA) | payer MEDICARE, MEDICAID, SELFPAY | PROVIDERS: PCP Internal Medicine; Visit Provider Internal Medicine | DX: N20.0 Calculus of kidney (principal); M79.7 Fibromyalgia; J45.30 Mild persistent asthma, uncomplicated; Z78.0 Asymptomatic menopausal state | CPT/HCPCS: 96127; 99212 ==

== ENCOUNTER 2024-10-22 13:00 | Outpatient (REF) | payer MEDICARE, MEDICAID, SELFPAY ==
--- NOTE | 2024-10-22 13:08 | EMG_ITS ---
Chief complaint: Chronic hand pain and numbness, right worse than left Previous EMG by Dr. Zayas 01/17 and in 2020 were normal. Reason for referral: Evaluate for Carpal Tunnel Syndrome Referred by: Dr. Pedraza Procedure done: Bilateral upper extremities NCS/EMG Precautions and/or limitations: None The limb temperature was monitored continuously and remained between 32-36 degrees C during the performance of the NCS. Nerve Conduction Studies Anti Sensory Summary Table ?Stim Site NR Onset (ms) Norm Onset (ms) Peak (ms) Norm Peak (ms) O-P Amp (?V) Norm O-P Amp Site1 Site2 Delta-0 (ms) Dist (cm) Bryan (m/s) Norm Bryan (m/s) Right Median Anti Sensory (2nd Digit) Wrist ? 2.2 2.9 <3.6 10.6 >10 Wrist 2nd Digit 2.2 14.0 64 Right Ulnar Anti Sensory (5th Digit) Wrist ? 2.2 2.7 <3.7 22.4 >15.0 Wrist 5th Digit 2.2 14.0 64 Motor Summary Table ?Stim Site NR Onset (ms) Norm Onset (ms) O-P Amp (mV) Norm O-P Amp iAmp (mV) Amp (1st) (%) Site1 Site2 Delta-0 (ms) Dist (cm) Bryan (m/s) Norm Bryan (m/s) Left Median Motor (Abd Poll Brev) Wrist ? 2.6 <3.9 10.7 >4.5 13.7 100.0 Elbow Wrist 2.7 14.5 54 >45 Elbow ? 5.3 8.3 11.1 77.6 Right Median Motor (Abd Poll Brev) Wrist ? 2.7 <3.9 9.8 >4.5 12.0 100.0 Elbow Wrist 2.8 18.5 66 >45 Elbow ? 5.5 10.0 12.2 102.0 Left Ulnar Motor (Abd Dig Minimi) Wrist ? 2.2 <3.0 6.9 >5 8.5 100.0 B Elbow Wrist 2.3 14.0 61 >45 B Elbow ? 4.5 7.6 9.1 110.1 A Elbow B Elbow 1.4 10.0 71 >45 A Elbow ? 5.9 7.0 8.5 101.4 Right Ulnar Motor (Abd Dig Minimi) Wrist ? 2.5 <3.0 10.2 >5 12.5 100.0 B Elbow Wrist 2.3 14.0 61 >45 B Elbow ? 4.8 9.5 11.8 93.1 A Elbow B Elbow 1.3 10.0 77 >45 A Elbow ? 6.1 9.0 11.5 88.2 Comparison Summary Table ?Stim Site NR Peak (ms) Norm Peak (ms) P-T Amp (?V) Site1 Site2 Delta-P (ms) Norm Delta (ms) Left Median/Radial Dig I Comparison (Digit 1 - 10cm) Median ? 2.4 <2.9 51.3 Median Radial 0.0 Radial ? 2.4 <2.8 15.1 Right Median/Radial Dig I Comparison (Digit 1 - 10cm) Median ? 2.4 <2.9 31.8 Median Radial 0.2 Radial ? 2.2 <2.8 7.8 EMG ?Side Muscle Nerve Root Ins Act Fibs Psw Amp Dur Poly Recrt Int Pat Comment Right 1stDorInt Ulnar C8-T1 Nml Nml Nml Nml Nml 0 Nml Complete Right FlexCarRad Median C6-7 Nml Nml Nml Nml Nml 0 Nml Complete Right Biceps Musculocut C5-6 Nml Nml Nml Nml Nml 0 Nml Complete Right Triceps Radial C6-7-8 Nml Nml Nml Nml Nml 0 Nml Complete Right Deltoid Axillary C5-6 Nml Nml Nml Nml Nml 0 Nml Complete Left 1stDorInt Ulnar C8-T1 Nml Nml Nml Nml Nml 0 Nml Complete Left FlexCarRad Median C6-7 Nml Nml Nml Nml Nml 0 Nml Complete Left Biceps Musculocut C5-6 Nml Nml Nml Nml Nml 0 Nml Complete Left Triceps Radial C6-7-8 Nml Nml Nml Nml Nml 0 Nml Complete Left Deltoid Axillary C5-6 Nml Nml Nml Nml Nml 0 Nml Complete FINDINGS: All motor and sensory nerves tested showed normal latencies, amplitudes and conduction velocities. Concentric needle EMG was performed in selected muscles of the bilateral upper extremities. Study did not reveal signs of electric abnormalities as shown in the table above. IMPRESSION: 1. This is a normal study. 2. There is no electrodiagnostic evidence for median neuropathy, ulnar neuropathy, brachial plexopathy, or cervical radiculopathy. Thank you for your kind referral. Ruth Smith MD, PATRIC Board Certified, [place] [employer] and [employer] (ABPMR) Board Certified, [place] Board of Electrodiagnostic Medicine (ABEM) CODIN [phone] 2 MTDD
--- OUTSIDE RECORDS SUMMARY | 2024-10-22 13:22 | XMS_ITS | Clinical Summary ---
Author Organization [facility] [employer] [facility] ity Address [address] [place] [address] Care Team Providers Care Bulk System Operator Name Role Phone Rome Kelly MD Primary Care Provider [phone] Surgical History Surgery Date Site/Laterality Comments HYSTERECTOMY [...] age to complete this topic Care Teams Bulk System Operator Relationship Specialty Start Date End Date Rome Kelly MD [address] [place] [address] [phone] PCP - General 12/04/10
--- OUTSIDE RECORDS SUMMARY | 2024-10-22 13:22 | XMS_ITS | Clinical Summary ---
Author Organization [facility] [facility] Address [address] [place] [address] Care Team Providers Care Medicaid Nurse Name Role Phone Unavailable Primary Care Provider [...]
== END 2024-10-22 13:01 | disposition home or self-care (01) ==
LOC: HO.NEURO 13:00
PROVIDERS: PCP Internal Medicine; Visit Provider Internal Medicine Rheumatology
DX: R20.2 Paresthesia of skin (principal)
CPT/HCPCS: 95886; 95911

== ENCOUNTER → 2024-10-22 13:08 | Outpatient (BNV) | payer MEDICARE, MEDICAID, SELFPAY | PROVIDERS: PCP Internal Medicine; Visit Provider Physical Medicine & Rehabilitation | DX: M79.641 Pain in right hand (principal); M79.642 Pain in left hand | CPT/HCPCS: 95886; 95911 ==

== ENCOUNTER 2024-11-03 11:09 | Outpatient (REF) | payer MEDICARE, MEDICAID, SELFPAY ==
--- NOTE | ~2024-11-03 | XR_ITS ---
CLINICAL HISTORY: R20.2 - Paresthesia of skin --- Additional Notes or Special Instructions: ?cervical spine pathology contributing to hand paresthesia. Exam: AP, lateral, and open-mouth odontoid views of the cervical spine. Comparison: None provided. Findings: Bony alignment of the cervical vertebral bodies is anatomic. No fracture or prevertebral soft tissue swelling. Mild multilevel degenerative disc disease and degenerative facet disease throughout the cervical spine. Tiny ossification seen along the anterior disc level at C5-6 and C6-7. Impression: Degenerative changes as above. This document has been electronically signed by: Hugo Ayala MD on 11/04/2024 08:31:27
--- OUTSIDE RECORDS SUMMARY | 2024-11-03 14:20 | XMS_ITS | Clinical Summary ---
Author Organization [employer] [facility] Address [address] [place] [address] Care Team Providers Care Asset Management Coordinator Name Role Phone Unavailable Primary Care Provider [...]
--- OUTSIDE RECORDS SUMMARY | 2024-11-03 14:20 | XMS_ITS | Clinical Summary ---
Author Organization [employer] [facility] ity Address [address] [place] [address] Care Team Providers Care Truck Spotter Name Role Phone Rome Kelly MD Primary Care Provider [phone] Surgical History Surgery Date Site/Laterality Comments HYSTERECTOMY [...] 01/23/2022 Social Influencers of Health Screening 01/23/2022 Depression Screening 02/25/2024 COVID-19 Vaccine (1 - 2023-2 5 season) 2024 Influenza Vaccine (#1) 2024 HIB Vaccines Aged [...] age to complete this topic Care Teams Truck Spotter Relationship Specialty Start Date End Date Rome Kelly MD [address] [place] [address] [phone] PCP - General 12/04/10
== END 2024-11-03 11:10 | disposition home or self-care (01) ==
LOC: HO.XRAY 11:09
PROVIDERS: PCP Internal Medicine; Visit Provider Internal Medicine Rheumatology
DX: R20.2 Paresthesia of skin (principal)
CPT/HCPCS: 72040

== ENCOUNTER → 2024-11-03 11:14 | Outpatient (BNV) | payer MEDICARE, MEDICAID, SELFPAY | PROVIDERS: PCP Internal Medicine; Visit Provider Radiology Diagnostic Radiology | DX: M50.30 Other cervical disc degeneration, unspecified cervical region (principal) | CPT/HCPCS: 72040 ==

== ENCOUNTER 2024-12-15 10:00 | Outpatient (AMB) | payer MEDICARE, MEDICAID, SELFPAY ==
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
[2024-12-15 10:02] VITALS: BP 120/70; PULSE 84; O2SAT 98; BMI 29.2
--- OUTSIDE RECORDS SUMMARY | 2024-12-15 12:07 | XMS_ITS | Clinical Summary ---
Author Organization [employer] [facility] ity Address [address] [place] [address] Care Team Providers Care Coffee Grower Name Role Phone Rome Kelly MD Primary Care Provider [phone] Surgical History Surgery Date Site/Laterality Comments HYSTERECTOMY [...] Last Done Comments Breast Cancer Screening 1976 Colorectal Cancer Screening: Colonoscopy 1976 DTaP,Tdap,and Td Vaccines (1 - Tdap) 12/20/1995 Hepatitis B Vaccines (1 of 3 - 19+ 3-dose series) 12/20/1995 Cervical Cancer Screening: P ap Smear 1997 HIV Screening 01/23/2022 Hepatitis C Screening 01/23/2022 Social Influencers of Health Screening 01/23/2022 Depression Screening 02/25/2024 COVID-19 Vaccine (1 - 2023-2 5 season) 2024 Influenza Vaccine (#1) 2024 RSV Immunization Adult Patie nts (1 - 1-dose 75+ series) 12/20/2051 HIB Vaccines Aged Out No longer eligi [...] age to complete this topic Care Teams Coffee Grower Relationship Specialty Start Date End Date Rome Kelly MD [address] [place] [phone] PCP - General 12/04/10
--- OUTSIDE RECORDS SUMMARY | 2024-12-15 12:07 | XMS_ITS | Clinical Summary ---
Author Organization [employer] [facility] Address [address] [place] [address] Care Team Providers Care Pocket Secretary Assembler Name Role Phone Unavailable Primary Care Provider [...]
== END 2024-12-15 10:54 | disposition home or self-care (01) ==
LOC: HO.RHES 10:01
PROVIDERS: PCP Internal Medicine; Visit Provider Internal Medicine Rheumatology
DX: M47.812 Spondylosis without myelopathy or radiculopathy, cervical region (principal); M18.11 Unilateral primary osteoarthritis of first carpometacarpal joint, right hand; M15.4 Erosive (osteo)arthritis; R20.2 Paresthesia of skin
CPT/HCPCS: 99214; G2211

== ENCOUNTER → 2024-12-15 10:00 | Outpatient (BNVA) | payer MEDICARE, MEDICAID, SELFPAY | PROVIDERS: PCP Internal Medicine; Visit Provider Internal Medicine Rheumatology | DX: M15.4 Erosive (osteo)arthritis (principal); M47.812 Spondylosis without myelopathy or radiculopathy, cervical region; M18.11 Unilateral primary osteoarthritis of first carpometacarpal joint, right hand; R20.2 Paresthesia of skin | CPT/HCPCS: 99212 ==

== ENCOUNTER 2024-12-17 15:54 | Emergency (ER) | payer MEDICARE, MEDICAID, SELFPAY ==
--- NOTE | ~2024-12-17 | CT_ITS ---
CLINICAL HISTORY: rivas [address] head without contrast Comparison: None provided Findings: No intra-axial mass, midline shift, hydrocephalus, or acute hemorrhage. No significant atrophy-like change or white matter disease. There is no sinus or mastoid fluid. The orbits are unremarkable. No skull fracture. IMPRESSION: 1. No acute intracranial findings. This document has been electronically signed by: Tyler Becker MD on 12/17/2024 19:11:55
--- NOTE | ~2024-12-17 | CT_ITS ---
CLINICAL HISTORY: neck pain [address] w[address] cervical spine without contrast Comparison: CR - XR CERVICAL SPINE 3V - 11/03/24 11:39 EDT Findings: Vertebral alignment is within normal limits. Mild degenerative changes of the cervical spine. There is a pneumatocyst in the C5 vertebral body. No acute fractures or dislocations. Visualized intracranial contents are unremarkable. No cervical fluid collections or masses. Possible small thyroid nodules. Lung apices are clear. IMPRESSION: No acute findings. This document has been electronically signed by: Tyler Becker MD on 12/17/2024 19:12:15
[2024-12-17 16:02] VITALS: BP 136/72; PULSE 71; RESP 18; TEMP 36.6; O2SAT 98; BMI 28.8
--- NOTE | 2024-12-17 16:06 | ED.NEUROSD ---
HPI - Neuro Symptoms/Deficit General Chief Complaint: Neuro Symptoms/Deficit Stated Complaint: L side head pain, R hand numbness X 14 days Time Seen by Provider: 12/17/24 18:08 Source: patient, RN notes reviewed and old records reviewed Mode of arrival: ambulatory Limitations: no limitations History of Present Illness ED Provider: Christa HPI Narrative: Patient is a 48 year old female with pmhx of cervical spondylosis, GERD, asthma, fibromyalgia presenting to the emergency department with complaint of headache to the left side of head for the past 2 weeks. States pain is behind left eye, radiates to neck at times. Associated nausea and photophobia specifically to the sun. Denies dizziness or lightheadedness. Also complaining of paresthesias to all extremities for several months. Has seen chair car driver about this and was referred back to PCP to have MRI scheduled. Denies any recent falls or other trauma. Denies history of migraines. Tried Tylenol, ibuprofen, excedrin with little relief of symptoms. Related Data Home Medications ?Medication ?Instructions ?Recorded ?Confirmed albuterol sulfate 90 mcg/actuation 0 mcg inhalation 07/18/22 10/04/24 aerosol inhaler Previous Rx's ?Medication ?Instructions ?Recorded budesonide 90 mcg/actuation breath 1 inh inhalation Q12H 30 days #1 ea 02/11/24 activated powder inhaler (Pulmicort Flexhaler) cetirizine 10 mg tablet (All Day 10 mg PO DAILY PRN allergy 02/11/24 Allergy (cetirizine)) symptoms 30 days #30 tabs montelukast 10 mg tablet 10 mg PO DAILY 90 days #90 tabs 02/11/24 (Singulair) cholestyramine-aspartame 4 gram 4 g PO DAILY 90 days #60 ea 02/27/24 oral powder for susp in a packet (Cholestyramine Light) cyclosporine 0.05 % eye drops in a 1 drp ophthalmic (eye) BID 30 days 07/02/24 dropperette #30 ea pyridoxine (vitamin B6) 100 mg 100 mg PO DAILY #90 tabs 07/22/24 tablet pantoprazole 40 mg tablet,delayed 40 mg PO DAILY 90 days #90 tabs 09/30/24 release valacyclovir 1 gram tablet 1,000 mg PO DAILY 90 days #90 tabs 10/30/24 cyclobenzaprine 5 mg tablet 5 mg PO BEDTIME PRN muscle spasm 12/15/24 #30 tabs ondansetron 4 mg disintegrating 4 mg PO Q8H PRN nausea and 12/17/24 tablet vomiting #10 tabs Allergies Allergy/AdvReac Type Severity Reaction Status Date / Time pregabalin AdvReac Intermediate tachycardia Verified 12/17/24 16:05 Review of Systems Review of Systems: As per HPI Yes all other systems are reviewed and are negative Constitutional: Constitutional: Reports as per HPI PMFSH Past Medical History Medical History Colon adenomas Renal calculi Hearing loss, bilateral Medicare annual wellness visit, initial Abdominal pain Hearing loss Obese Asthma GERD (gastroesophageal reflux disease) Scoliosis Carpal tunnel syndrome Fibromyalgia Surgical History H/O: hysterectomy Hx of colonoscopy History of esophagogastroduodenoscopy (EGD) History of intestinal surgery History of dilation and curettage Hx of appendectomy Hx of section Family History Family History Mother HTN (hypertension) Diverticulitis Father Diabetes Maternal Aunt Guillain-Austin syndrome Social History Social History Housing: Apartment Alcohol intake: current Alcohol intake frequency: holidays/special occasions only Alcohol type: beer and wine Patient Tobacco Use Status: Former Tobacco user Tobacco use type: Cigarette Smoked in Last 30 Days: No e-Cigarette/Vaping Use: Never Used Second Hand Smoke Exposure: No Use of substances other than those prescribed or required for medical reasons: No Advance Directives: No Advance Directives Information Provided: No service: No Current occupational status: employed 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 Blood pressure normal. Heart rate normal. Respiratory rate normal. Temperature normal. Oxygen saturation normal. Const: General: cooperative, healthy appearing and no acute distress Orientation/consciousness: oriented to person, oriented to place, oriented to time and patient oriented x3 Limitations: no limitations HEENT: Head: Yes normocephalic and Yes atraumatic Ears: hearing grossly normal bilaterally, external ears normal, TM's normal bilaterally and EAC's normal General nose exam: Normal external nose present Face and sinus: Yes face symmetric Mouth: oropharynx normal and moist mucous membranes Throat: Yes uvula midline Eyes: Pupils: Equal, round and reactive pupils present EOM: EOMs intact bilaterally Neck: Neck: Yes normal visual inspection, Yes full ROM, Yes no lymphadenopathy, Yes no meningeal signs and Yes supple Resp: Effort & Inspection: normal respiratory effort and able to speak in complete sentences Auscultation: clear to auscultation bilaterally Cardio: Rate: regular rate Rhythm: regular rhythm Heart sounds: S1 normal heart sound present and S2 normal heart sound present GI: Palpation (GI): Soft to palpation and nontender Auscultation: normoactive bowel sounds : General: Yes no CVA tenderness Back/Spine/Pelvis: Back: no CVA tenderness Cervical Spine: normal cervical lordosis, cervical ROM normal, No pain with cervical ROM, No Cervical spine tenderness and No step off deformity Skin: General skin exam: elasticity normal and turgor normal Neuro: General: oriented to person, oriented to place, oriented to time, patient oriented x3, gait normal, tone normal, moves all extremities, Normal light touch and pain sensation, no meningeal signs, no focal motor deficits, CN's II-XI intact bilaterally and deep tendon reflexes 2+ bilaterally Cranial nerves: Yes Equal, round and reactive pupils present Cognition (Neuro): normal cognition Motor exam (neuro): 5/5 motor strength present throughout, Normal motor muscle tone present throughout and Motor abnormalities not present Extrem: General: Yes full ROM, Yes no pedal edema and Yes no calf tenderness Psych: Mental Status: mental status grossly normal Affect: normal affect Thought process: Normal thought process present Course Course Course Narrative: Nicole Durbin SCOREBOARD OPERATOR 12/17/24 0452 This is a rapid medical exam. Defer additional HPI, ROS, PE to primary provider. This is a 48-year-old female who presents the ER with complaints of left-sided headache and right arm numbness with intermittent blurred vision for more than 2 weeks. Will obtain labs, UA VSS Medications Administered Discontinued Medications Generic Name Dose Route Start Last Admin Trade Name Navdeep PRN Reason Stop Dose Admin Diphenhydramine HCl 25 mg 12/17/24 18:26 12/17/24 19:01 Diphenhydramine Hcl 50 Mg/Ml Vial IVPUSH 12/17/24 18:27 25 mg ONCE ONE Administration Sodium Chloride 1,000 mls @ 999 mls/hr 12/17/24 18:30 12/17/24 18:48 Ns IV 12/17/24 19:30 999 mls/hr .Q1H1M BRITTANY Administration Ketorolac Tromethamine 15 mg 12/17/24 18:26 12/17/24 19:00 Ketorolac Tromethamine 15 Mg/Ml Vial IVPUSH 12/17/24 18:27 15 mg ONCE ONE Administration Metoclopramide HCl 10 mg 12/17/24 18:26 12/17/24 19:01 Metoclopramide Hcl 10 Mg/2 Ml Vial IVPUSH 12/17/24 18:27 10 mg ONCE ONE Administration Medical Decision Making Medical Decision Making MDM Narrative: Patient is a 48 year old female with pmhx of cervical spondylosis, GERD, asthma, fibromyalgia presenting to the emergency department with complaint of headache to the left side of head for the past 2 weeks. On exam patient is awake, A+Ox3, VS WNL, afebrile, normal neurological exam without focal deficits, physical exam findings as above. Given reported symptoms and physical exam findings, initial differential includes but is not limited to migraine, tension headache, electrolyte abnormality. No neuro deficits or red flag findings on physical exam concerning for ICH/SAH, acute glaucoma, carotid artery dissection, CO poisoning, encephalitis, meningitis, preeclampsia, pseudotumor, temporal arteritis/giant cell arteritis. Labs unremarkable. CT head and c-spine notable for no evidence of ICH, mass, fracture or subluxation. My interpretation is in agreement with the radiologist's interpretation. Pain improved with medications given in the ED and patient is comfortable with discharge home at this time. Advised to alternate Tylenol and ibuprofen, will send prescription for Zofran for nausea. Advised f/u with PCP this week. Return precautions discussed. Patient verbalized understanding of and agreement with plan. Differential Diagnosis Differential Diagnoses: The differential diagnosis associated with the presentation includes as per [facility] Admission/Observation Consideration of admission/observation: Escalation of care including admission/observation considered Patient would have been admitted to the hospital and transferred to appropriate facility had their clinical presentation warranted hospital admission. Lab Data [facility] Lab Attestation statement: I reviewed the patient's lab results. as per [facility] 12/17/24 16:16 12/17/24 16:16 Labs: Lab Results 12/17/24 Range/Units 16:16 WBC 8.6 (4.8-10.8) X10*3/uL RBC 4.57 (4.20-5.50) X10*6/uL Hgb 14.0 (12.0-16.0) g/dl Hct 40.9 (37.0-47.0) % MCV 89.5 (80.0-98.0) fL MCH 30.6 (27.0-33.0) pg MCHC 34.2 (31.0-35.0) g/dl RDW 13.0 (11.0-16.0) % Plt Count 274 (160-400) X10*3/uL MPV 11.4 (9.4-12.3) fL Immature Gran % (Auto) 0.2 (0.0-0.4) % Neut % (Auto) 63.4 (45-73) % Lymph % (Auto) 26.9 (20-40) % [place] % (Auto) 6.8 (2-11) % Eos % (Auto) 2.2 (0-4) % Baso % (Auto) 0.5 (0-2) % Lymph # (Auto) 2.3 (1.2-4.9) X10*3/uL [place] # (Auto) 0.6 (0.1-1.2) X10*3/uL Eos # (Auto) 0.2 (0.0-0.4) X10*3/uL Baso # (Auto) 0.0 (0.0-0.2) X10*3/uL Abs Immat Gran (auto) 0.02 (0.00-0.03) X10*3/uL Absolute Neuts (auto) 5.4 (2.0-8.3) x10*3/uL Absolute Nucleated RBC 0.000 (0.0-0.012) X10*3/uL Nucleated RBC % (auto) 0.0 (0.0-0.2) /100WBC Sodium 140 (135-145) mmol/L Potassium 4.1 (3.3-5.1) mmol/L Chloride 107 (96-108) mmol/L Carbon Dioxide 24 (22-29) mmol/L Anion Gap 13 (12-20) BUN 14 (9-16) mg/dL Creatinine 0.62 (0.5-1.4) mg/dL Estim Creat Clear Calc 79.8 Estimated GFR > 60 Random Glucose 94 (60-115) mg/dL Calcium 9.8 D (8.4-10.2) mg/dL Magnesium 2.2 (1.6-2.6) mg/dL Total Bilirubin 0.3 (0.0-1.0) mg/dL Direct Bilirubin 0.1 (0.0-0.5) mg/dL AST 21 (5-31) U/L ALT 21 (0-31) U/L Alkaline Phosphatase 75 (39-117) U/L Total Protein 7.6 (6.5-8.0) g/dL Albumin 4.9 (3.5-5.0) g/dL Urine Color Yellow Urine Appearance Clear Urine pH 6.5 (5.0-9.0) Ur Specific [place] <= 1.005 (1.005-1.025) Urine Protein Negative (Neg-Trace) mg/dL Urine Glucose (UA) Negative (Negative) mg/dL Urine Ketones Negative (Negative) mg/dL Urine Blood Negative (Negative) Urine Nitrite Negative (Negative) Ur Leukocyte Esterase Negative (Negative) Urine Test NEGATIVE (NEGATIVE) Independent Interpretation I performed an independent interpretation of an: CT Scan Interpretation: CT head and c-spine notable for no evidence of ICH, mass, fracture or subluxation. Radiology Impression Discussion of test interpretation with radiology: I have reviewed the radiologist's reading. Radiologist Impression: CT head without contrast Comparison: None provided Findings: No intra-axial mass, midline shift, hydrocephalus, or acute hemorrhage. No significant atrophy-like change or white matter disease. There is no sinus or mastoid fluid. The orbits are unremarkable. No skull fracture. IMPRESSION: 1. No acute intracranial findings. CT cervical spine without contrast Comparison: CR - XR CERVICAL SPINE 3V - 11/03/24 11:39 EDT Findings: Vertebral alignment is within normal limits. Mild degenerative changes of the cervical spine. There is a pneumatocyst in the C5 vertebral body. No acute fractures or dislocations. Visualized intracranial contents are unremarkable. No cervical fluid collections or masses. Possible small thyroid nodules. Lung apices are clear. IMPRESSION: No acute findings. External Record Review External record reviewed: Inpatient record, Office record and Outpatient record Prescription Management I considered prescription management with: Other Discharge Plan Discharge Clinical Impression: Paresthesia of right upper limb Headache Qualifiers: Headache type: unspecified Patient Disposition: Home, Self-Care Instructions: Acute Headache (DC), Paresthesia (ED) Additional Instructions: You have been evaluated in the emergency department today for headache. Your evaluation did not show evidence of medical conditions requiring emergent intervention at this time, and your pain improved with medication in the ED. We recommend you take 600 mg ibuprofen every 6 hours or Tylenol 650 mg every 6 hours as needed for pain. If needed, you can alternate these medications so that you take 1 medication every 3 hours. For instance, at noon take ibuprofen, then at 3:00 p.m. take Tylenol, then at 6:00 p.m. take ibuprofen. Please follow-up with your primary care provider within 2 days. Return to the emergency department if you experience worsening or uncontrolled pain, vision changes, recurrent vomiting, difficulty with normal activities, abnormal behavior, difficulty walking, numbness, weakness, or any other concerning symptoms. Prescriptions: New ondansetron 4 mg tablet,disintegrating 4 mg PO Q8H PRN (Reason: nausea and vomiting) Qty: 10 0RF No Action cholestyramine-aspartame [Cholestyramine Light] 4 gram powder in packet 4 g PO DAILY 90 Days Qty: 60 1RF Rx Instructions: administer w/meal; avoid other meds within 1hr before or 4-6hr after dose cyclosporine 0.05 % dropperette 1 drp ophthalmic (eye) BID 30 Days Qty: 30 6RF pantoprazole 40 mg tablet,delayed release (DR/EC) 40 mg PO DAILY 90 Days Qty: 90 3RF valacyclovir 1 gram tablet 1,000 mg PO DAILY 90 Days Qty: 90 1RF albuterol sulfate 90 mcg/actuation HFA aerosol inhaler 0 mcg inhalation cyclobenzaprine 5 mg tablet 5 mg PO BEDTIME PRN (Reason: muscle spasm) Qty: 30 0RF pyridoxine (vitamin B6) 100 mg tablet 100 mg PO DAILY Qty: 90 3RF Pulmicort Flexhaler 90 mcg/actuation aerosol powdr breath activated 1 inh inhalation Q12H 30 Days Qty: 1 0RF cetirizine [All Day Allergy (cetirizine)] 10 mg tablet 10 mg PO DAILY PRN (Reason: allergy symptoms) 30 Days Qty: 30 0RF montelukast [Singulair] 10 mg tablet 10 mg PO DAILY 90 Days Qty: 90 3RF Print Language: Kinyarwanda
[2024-12-17 16:20] LABS: MANUAL DIFF FLAG NO
[2024-12-17 16:23] LABS: Hematocrit 40.9 % (37.0-47.0); Hemoglobin 14.0 g/dl (12.0-16.0); Imm Gran Abs Auto 0.02 X10*3/uL (0.00-0.03); Imm Gran Pct Auto 0.2 % (0.0-0.4); Lymphocytes Absolute Auto 2.3 X10*3/uL (1.2-4.9); Mean Corpuscular HGB Conc 34.2 g/dl (31.0-35.0); Mean Corpuscular Hemoglobin 30.6 pg (27.0-33.0); Mean Corpuscular Volume 89.5 fL (80.0-98.0); NRBC Abs Auto 0.000 X10*3/uL (0.0-0.012); NRBC Pct Auto 0.0 /100WBC (0.0-0.2); Platelet Count 274 X10*3/uL (160-400); Red Blood Count 4.57 X10*6/uL (4.20-5.50); White Blood Count 8.6 X10*3/uL (4.8-10.8)
[2024-12-17 16:28] LABS: Appearance Urine Clear; Glucose Urine UA Negative (Negative); PH 6.5 (5.0-9.0); Specific Gravity - Urine <= 1.005 (1.005-1.025); UPreg QC Valid YES
[2024-12-17 16:41] LABS: Alanine Aminotransferase 21 U/L (0-31); Albumin Level 4.9 g/dL (3.5-5.0); Alkaline Phosphatase 75 U/L (39-117); Anion Gap 13 (12-20); Aspartate Amino Transferase 21 U/L (5-31); Blood Urea Nitrogen 14 mg/dL (9-16); Calcium 9.8 mg/dL (8.4-10.2); Carbon Dioxide 24 mmol/L (22-29); Chloride 107 mmol/L (96-108); Creatinine Clr Calc Pharmacy 79.8; Estimated Glomerular Filt Rate > 60; Magnesium 2.2 mg/dL (1.6-2.6); Potassium 4.1 mmol/L (3.3-5.1); Sodium 140 mmol/L (135-145); Total Protein 7.6 g/dL (6.5-8.0)
--- OUTSIDE RECORDS SUMMARY | 2024-12-17 17:47 | XMS_ITS | Clinical Summary ---
Author Organization [facility] Address [address] [place] [address] Care Team Providers Care Directory Compiler Name Role Phone Unavailable Primary Care Provider [...]
--- OUTSIDE RECORDS SUMMARY | 2024-12-17 17:47 | XMS_ITS | Clinical Summary ---
Author Organization [facility] ity Address [address] [place] [address] Care Team Providers Care Environmental Field Services Technician Name Role Phone Rome Kelly MD Primary Care Provider [phone] Surgical History Surgery Date Site/Laterality Comments HYSTERECTOMY [...] age to complete this topic Care Teams Environmental Field Services Technician Relationship Specialty Start Date End Date Rome Kelly MD [address] [place] [phone] PCP - General 12/04/10
--- NOTE | 2024-12-17 19:03 | PC.NURSE ---
Pt here w/ c/o R side h/a radiating to behind her eye and up her neck for two weeks unrelieved w/ otc meds. Pt went to see rhematologist for c/o but was referred back to pcp for MRI. Pt here because she cant tolerate the pain anymore
[2024-12-17 20:57] VITALS: BP 100/59; PULSE 68; RESP 15; TEMP 36.6; O2SAT 95
[2024-12-17 22:50] VITALS: BP 109/68; PULSE 66; RESP 18; TEMP 36.5; O2SAT 97
== END 2024-12-17 22:58 | disposition home or self-care (01) ==
PROVIDERS: Nurse Practitioner Family; Emergency Provider Emergency Medicine; PCP Internal Medicine
DX: R20.2 Paresthesia of skin (principal); R51.9 Headache, unspecified; M54.2 Cervicalgia
CPT/HCPCS: 36415; 70450; 72125; 80048; 80076; 81003; 81025; 83735; 85025; 96361; 96374; 96375; 99284; J1200; J1885; J2765

== ENCOUNTER → 2024-12-17 18:10 | Outpatient (BNV) | payer MEDICARE, MEDICAID, SELFPAY | PROVIDERS: Emergency Provider Emergency Medicine; PCP Internal Medicine; Visit Provider Nuclear Medicine | DX: M54.2 Cervicalgia (principal); R51.9 Headache, unspecified | CPT/HCPCS: 70450; 72125 ==

== ENCOUNTER 2025-01-04 08:33 | Outpatient (REF) | payer MEDICARE, MEDICAID, SELFPAY ==
--- OUTSIDE RECORDS SUMMARY | 2024-12-30 09:15 | XMS_ITS | Encounter Summary ---
Author Organization [employer] Address [address] [facility] [address] [place] [address] Care Team Providers Care Lens Generator Name Role Phone Shelia Stuart MD Primary Care Provider + Reason for Referral * Imaging (Routine) - Authorized Specialty Diagnoses / Procedures Referred By Charlotte lundy Referred To Contact Radiology Diagnoses Multiple thyroid nodules Procedures US Thyroid Shelia Stuart MD [address] [place] [phone] Phone: tel: fax: [address] Phone: tel: fax: Referral ID Status Reason Start Date Expiration Date V isits Requested Visits Authorized [id number] Authorized 12/31/2024 12/31/2025 1 1 Reason for Visit * Reason Comments new pt Encounter Details Date Type Department Care Team (Late st Contact Info) Description 12/30/2024 9:15 AM EST Office Visit [facility] MED[facility]INE [address] [place] [address] [phone] Shelia Stuart MD [address] [place] [address] Chronic fatigue syndrome with fibromyalgia (Primary Dx); Irritable bowel syndrome with diarrhea; Primary osteoarthritis, unspecified site; Seasonal allergies; Kidney stones; HSV (herpes simplex virus) infection; Multiple thyroid nodules; Menopause; Tinea pedis of right foot; Hair loss Social History Tobacco Use Types Packs/Day Years Used Date Smoking Tobacco: Never Assessed Depression Answer Date Recorded Patient Health Questionnaire-9 Score 6 12/30/2024 Patient Health Questionnaire-9 Score 6 12/30/2024 Last PHQ-9: Questionnaire Data Not on file 1 03/01/2024 Depression Answer Date Recorded Patient Health Questionnaire-2 Score 2 12/30/2024 Comments Unknown Sex and Gender Information Value Date Recorded Sex Assigned at Female 12/20/2024 12:34 PM EDT Legal Sex Female 12:33 PM EDT Gender Identity Female 12/20/2024 12:34 PM EDT Sexual Orientation Don't know 12/29/2024 3: 42 PM EST documented as of this encounter Last Filed Vital Signs Vital Sign Reading Time Taken Comments Blood Pressure 128/80 12/30/2024 9:31 AM EST Pulse 76 12/30/2024 9:31 AM EST Temperature 36.3 C (97.3 F) 12/30/2024 9:31 AM EST Respiratory Rate 20 12/30/2024 9:31 AM EST Oxygen Saturation 98% 12/30/2024 9:31 AM EST Inhaled Oxygen Concentration - - Weight 59.1 kg (130 lb 6.4 oz) 12/30/2024 9:31 A M EST Height 142.2 cm (4' 8 ) 12/30/2024 9:31 AM EST Body Mass Index 29.24 12/30/2024 9:31 AM EST documented in this encounter Functional Status * Over the past 2 weeks, how often have you been bothered by any of the following problems? Question Answer Date of Assessment Author Patient Health Questionnaire -2 Score 2 12/30/2024 12:34 PM EST Amada Combs MA * Little interest or pleasure in doing things Answer Date of Assessment Author Several days 12/30/2024 12:34 PM EST Amada Combs MA * Feeling down, depressed, or hopeless Answer Date of Assessment Author Several days 12/30/2024 12:34 PM EST Amada Combs MA * Trouble falling or staying asleep, or sleeping too much Answer Date of Assessment Author Several days 12/30/2024 12:34 PM EST Amada Combs MA * Feeling tired or having little energy Answer Date of Assessment Author Several days 12/30/2024 12:34 PM EST Amada Combs MA * Poor appetite or overeating Answer Date of Assessment Author Several days 12/30/2024 12:34 PM Amada Robertson MA * Feeling bad about yourself - or that you are a failure or have let yourself or your family down Answer Date of Assessment Author Not at all 12/30/2024 12:34 PM Amada Robertson MA * Trouble concentrating on things, such as reading the newspaper or watching television Answer Date of Assessment Author Not at all 12/30/2024 12:34 PM Amada Robertson MA * Moving or speaking so slowly that other people could have noticed? Or the opposite - being so fidgety or restless that you have been moving around a lot more than usual. Answer Date of Assessment Author Several days 12/30/2024 12:34 PM Amada Robertson MA * Thoughts that you would be better off or hurting yourself in some way Answer Date of Assessment Author Not at all 12/30/2024 12:34 PM Amada Robertson MA * Patient Health Questionnaire-9 Score Answer Date of Assessment Author 6 12/30/2024 12:34 PM Amada Robertson MA * How difficult have these problems made it for you to do your work, take care of things at home, or get along with other people? Answer Date of Assessment Author Somewhat difficult 12/30/2024 12:34 PM Amada [place] do, [place] * Over the last 2 weeks, how often have you been bothered by any of the following problems? Question Answer Date of Assessment Author Feeling nervous, anxious, or on edge 3 12/30/2024 12:34 PM Amada Robertson MA Not being able to stop or co ntrol worrying 1 12/30/2024 12:34 PM Amada Robertson MA Worrying too much about diff erent things 2 12/30/2024 12:34 PM Amada Robertson MA Trouble relaxing 3 12/30/2024 12:34 PM Amada Robertson MA Being so restless that it is hard to sit still 2 12/30/2024 12:34 PM Amada Robertson MA Becoming easily annoyed or irritable 1 12/30/2024 12:34 PM Amada Robertson MA Feeling afraid as if somethi ng awful might happen 0 12/30/2024 12:34 PM Amada Robertson MA RENATO-7 Total Score 12 12/30/2024 12:34 PM Amada Robertson MA documented as of this encounter Progress Notes * Shelia Stuart MD - 12/30/2024 9:15 AM EST SUBJECTIVE: Amelie Perez is a 49 y.o. 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 Denies recent illness, injury, or hospitalization. PMHx/Pshx Hysterectomy due to DUB on 2023 History left hemicolectomy due to perforated diverticulitis on 2010 Chronic diarrhea: On Cholestyramine History of lithotripsy in 2021 Asthma: Last exacerbation was 5 years ago, she has been on Singulair since. Fibromyalgia?: Diagnosed in 2012 Positive HSV serology: She has been on valacyclovir since, she has never had any outbreaks Negative HTN, DM, CAD, CHF, seizures, thyroid disorder, cancer. Acute Concerns: Headache and Neurological Symptoms Complains of significant and daily headaches and pain in all joints for 1 or 2 years, exacerbated last month. On December 17, 2024, she presented to the emergency department due to intolerable headache and right-sided numbness. She received i IV fluids. CT scan of the brain was unremarkable and a CTscan of the cervical spine showed DJD changes with radiculopathy ? Possible small thyroid nodules, she was discharged home on ondansetron. 2. She is also complains of dry skin, vaginal dryness, and hair loss. Imaging revealed a possible nodule in the thyroid. Social History Social History Narrative Not on file Problem List[1] Family History[2] Review of Systems Constitutional: Negative for chills, fatigue and fever. HENT: Negative for congestion, ear pain, nosebleeds, rhinorrhea, sinus pressure, sore throat and trouble swallowing. Eyes: Negative for pain and discharge. Respiratory: Negative for cough, chest tightness and shortness of breath. Cardiovascular: Negative for chest pain, palpitations and leg swelling. Gastrointestinal: Negative for abdominal pain, blood in stool, constipation, diarrhea and nausea. Endocrine: Positive for heat intolerance. Negative for polydipsia and polyuria. Genitourinary: Negative for dysuria, frequency, genital sores, pelvic pain and vaginal discharge. Musculoskeletal: Positive for arthralgias, back pain and myalgias. Negative for neck pain. Skin: Positive for rash. Allergic/Immunologic: Negative for environmental allergies. Neurological: Positive for headaches. Negative for dizziness, seizures, weakness and light-headedness. Hematological: Negative for adenopathy. Psychiatric/Behavioral: Negative for agitation, behavioral problems, self-injury and suicidal ideas. OBJECTIVE: Vitals: 12/30/24 0931 BP: 128/80 Pulse: 76 Resp: 20 Temp: 97.3 ??F (36.3 ??C) SpO2: 98% Physical Exam HENT: Right Ear: Tympanic membrane and ear canal normal. Left Ear: Tympanic membrane and ear canal normal. Mouth/Throat: Mouth: Mucous membranes are moist. Pharynx: No oropharyngeal exudate or posterior oropharyngeal erythema. Eyes: Pupils: Pupils are equal, round, and reactive to light. Cardiovascular: Rate and Rhythm: Regular rhythm. Pulses: Normal pulses. Dorsalis pedis pulses are 2+ on the right side and 2+ on the left side. Posterior tibial pulses are 2+ on the right side and 2+ on the left side. Heart sounds: Normal heart sounds. No murmur heard. Pulmonary: Breath sounds: Normal breath sounds. Abdominal: General: Bowel sounds are normal. Palpations: Abdomen is soft. Tenderness: There is no abdominal tenderness. Musculoskeletal: General: Normal range of motion. Cervical back: Neck supple. Right foot: No deformity. Left foot: No deformity. Feet: Right foot: Protective Sensation: 7 sites tested. 7 sites sensed. Skin integrity: Fissure (erythema and blisters on right arch/plantar area) present. No ulcer. Toenail Condition: Right toenails are normal. Left foot: Protective Sensation: 7 sites tested. 7 sites sensed. Skin integrity: No ulcer or fissure. Toenail Condition: Left toenails are normal. Skin: General: Skin is warm. Neurological: General: No focal deficit present. Mental Status: She is alert and oriented to person, place, and time. Psychiatric: Mood and Affect: Mood normal. Behavior: Behavior normal. Problem List Items Addressed This Visit Chronic fatigue syndrome with fibromyalgia - Primary - Recommended focus on sleep hygiene, balanced activity, hydration, nutrition, and addressing anxiety or depression if present. - Take Tylenol as needed pain, follow-up with me at next visit Relevant Orders Lipid Panel with Reflex to Direct LDL Syphilis Screen TSH with Reflex to Free T4 Irritable bowel syndrome with diarrhea - Diarrhea controlled with daily cholestyramine. Previous left-sided hemicolectomy for diverticulosis in December 2010. - Reconsult as needed Relevant Medications valACYclovir (Valtrex) 1 g tablet pyridoxine (Vitamin B-6) 100 MG tablet Osteoarthritis Relevant Orders Hepatitis Panel, General Syphilis Screen TSH with Reflex to Free T4 Vitamin D, 25-Hydroxy, Total, Immunoassay Comprehensive Metabolic Panel CBC auto differential Seasonal allergies - Allergic symptoms, predominantly in spring, fall, and summer; asthma not presently active. - Continue montelukast as needed for allergy control. Kidney stones Relevant Medications cholestyramine (Questran) 4 GM/DOSE powder Other Relevant Orders CBC auto differential HSV (herpes simplex virus) infection - HSV seropositive; no history of symptomatic outbreaks. - Advised to discontinue daily valacyclovir; instructed to it only at onset of symptoms for a duration of 3-5 days. Provided instructions to schedule appointment if symptoms develop. Relevant Medications valACYclovir (Valtrex) 1 g tablet Tinea pedis of right foot Multiple thyroid nodules Relevant Medications cholestyramine (Questran) 4 GM/DOSE powder Other Relevant Orders US Thyroid Menopause - Menopausal symptoms including insomnia, hot flashes, vaginal dryness, hair loss, weight loss, headache, arthralgias. - Will order comprehensive laboratory evaluation including lipid panel and other relevant tests. Monitor symptoms; follow up in one month. - She is a status post hysterectomy, declined influenza and COVID vaccines. Other Visit Diagnoses Hair loss Relevant Orders TSH with Reflex to Free T4 Lyme Disease Ab with Reflex to Blot (IgG, IgM) Herpes Simplex Virus 1 and 2 (IgG), Type-Specific Antibodies This note was drafted using Ambient (AI) technology. The patient/patient's guardian has been informed and has consented to the use of this technology: Yes Follow Up: Medications Ordered Prior to Encounter[3] [1] Patient Active Problem List Diagnosis Chronic fatigue syndrome with fibromyalgia Diverticulitis Kidney stones Osteoarthritis Paresthesia and pain of extremity Irritable bowel syndrome with diarrhea Seasonal allergies HSV (herpes simplex virus) infection Tinea pedis of right foot Menopause Multiple thyroid nodules [2] No family history on file. [3] Current Outpatient Medications on File Prior to Visit Medication Sig Dispense Refill cholestyramine (Questran) 4 GM/DOSE powder Take 4 g by mouth if needed in the morning, at noon, andat bedtime (abd pain/diarrhea). montelukast (Singulair) 10 MG tablet Take 10 mg by mouth. pantoprazole (ProtoNix) 40 MG EC tablet Take 40 mg by mouth. pyridoxine (Vitamin B-6) 100 MG tablet Take 100 mg by mouth Once per day. valACYclovir (Valtrex) 1 g tablet Take 1 g by mouth. No current facility-administered medications on file prior to visit. documented in this encounter Miscellaneous Notes * Assessment & Plan Note - Shelia Stuart MD - 12/31/2024 3:28 PM EST Associated Problem(s): Menopause - Menopausal symptoms including insomnia, hot flashes, vaginal dryness, hair loss, weight loss, headache, arthralgias. - Will order comprehensive laboratory evaluation including lipid panel and other relevant tests. Monitor symptoms; follow up in one month. - She is a status post hysterectomy, declined influenza and COVID vaccines. * Assessment & Plan Note - Shelia Stuart MD - 12/31/2024 3:27 PM EST Associated Problem(s): Chronic fatigue syndrome with fibromyalgia - Recommended focus on sleep hygiene, balanced activity, hydration, nutrition, and addressing anxiety or depression if present. - Take Tylenol as needed pain, follow-up with me at next visit * Assessment & Plan Note - Shelia Stuart MD - 12/31/2024 3:26 PM EST Associated Problem(s): HSV (herpes simplex virus) infection - HSV seropositive; no history of symptomatic outbreaks. - Advised to discontinue daily valacyclovir; instructed to it only at onset of symptoms for a duration of 3-5 days. Provided instructions to schedule appointment if symptoms develop. * Assessment & Plan Note - Shelia Stuart MD - 12/31/2024 3:25 PM EST Associated Problem(s): Seasonal allergies - Allergic symptoms, predominantly in spring, fall, and summer; asthma not presently active. - Continue montelukast as needed for allergy control. * Assessment & Plan Note - Shelia Stuart MD - 12/31/2024 3:25 PM EST Associated Problem(s): Irritable bowel syndrome with diarrhea - Diarrhea controlled with daily cholestyramine. Previous left-sided hemicolectomy for diverticulosis in December 2010. - Reconsult as needed documented in this encounter Plan of Treatment Upcoming Encounters Date Type Department Care Team (Late st Contact Info) Description 03/07/2025 9:45 AM EST Office Visit [facility] MEDICINE [address] [place] [phone] Shelia Stuart MD [address] [place] [address] Scheduled Orders Name Type Priority Associated Diagnoses Orde r Schedule Lipid Panel with Reflex to Direct LDL Lab Routine Chronic fatigue syndrome with fibromyalgia Expected: 12/30/2024 (Approximate), Expires: 12/30/2025 Hepatitis Panel, General Lab Routine Primary osteoarthritis, unspecified site Expected: 12/30/2024 (Approximate), Expires: 12/30/2025 Syphilis Screen Lab Routine Primary osteoarthritis, unspecified site Chronic fatigue syndrome with fibromyalgia Expected: 12/30/2024 (Approximate), Expires: 12/30/2025 TSH with Reflex to Free T4 Lab Routine Primary osteoarthritis, unspecified site Chronic fatigue syndrome with fibromyalgia Hair loss Expected: 12/30/2024 (Approximate), Expires: 12/30/2025 Vitamin D, 25-Hydroxy, Total, Immunoassay Lab Routine Primary osteoarthritis, unspecified site Expected: 12/30/2024 (Approximate), Expires: 12/30/2025 Comprehensive Metabolic Panel Lab Routine Primary osteoarthritis, unspecified site Expected: 12/30/2024 (Approximate), Expires: 12/30/2025 CBC auto differential Lab Routine Kidney stones Primary osteoarthritis, unspecified site Expected: 12/30/2024 (Approximate), Expires: 12/30/2025 Lyme Disease Ab with Reflex to Blot (IgG, IgM) Lab Routine Hair loss Expected: 12/30/2024, Expires: 12/30/2025 Herpes Simplex Virus 1 and 2 (IgG), Type-Specific Antibodies Lab Routine Hair loss Expected: 12/30/2024 (Approximate), Expires: 12/30/2025 US Thyroid Imaging Routine Multiple thyroid nodules Expected: 12/31/2024 (Approximate), Expires: 12/31/2025 documented as of this encounter Visit Diagnoses Diagnosis Chronic fatigue syndrome with fibromyalgia- Primary Irritable bowel syndrome with diarrhea Irritable bowel syndrome Primary osteoarthritis, unspecified site Seasonal allergies Allergic rhinitis, cause unspecified Kidney stones Calculus of kidney HSV (herpes simplex virus) infection Herpes simplex without mention of complication Multiple thyroid nodules Nontoxic multinodular goiter Menopause Symptomatic menopausal or female climacteric states Tinea pedis of right foot Hair loss Unspecified alopecia documented in this encounter Additional Health Concerns Assessment Noted Time PHQ-9 Depression Total Score: 6 12/31/19 25 12:34 PM EST documented as of this encounter Care Teams Lens Generator Relationship Specialty Start Date End Date Shelia Stuart MD [address] [place] [phone] PCP - General Internal Medicine 12/30/24 documented as of this encounter
--- OUTSIDE RECORDS SUMMARY | 2025-01-04 08:44 | XMS_ITS | Clinical Summary ---
Author Organization [employer] Address [address] [facility] [address] [place] [address] Care Team Providers Care Etcher Apprentice Photoengraving Name Role Phone Shelia Stuart MD Primary Care Provider + Allergies Active Allergy Reactions Criticality Noted Date Comments Lactose Intolerance (Gi) Diarrhea 12/30/2024 Medications valACYclovir (Valtrex) 1 g tablet Take 1 g by mouth. Active pyridoxine (Vitamin B-6) 100 MG tablet Take 100 mg by mouth Once per day. Active pantoprazole (ProtoNix) 40 MG EC tablet Take 40 mg by mouth. Active montelukast (Singulair) 10 MG tablet Take 10 mg by mouth. Active cholestyramine (Questran) 4 GM/DOSE powder Take 4 g by mouth if needed in the morning, at noon, and at bedtime (abd pain/diarrhe a). Active Active Problems Problem Noted Date Diagnosed Date HSV (herpes simplex virus) infection 12/31/2024 Assessment & Plan (12/31/2024 3:26 PM EST): - HSV seropositive; no history of symptomatic outbreaks. - Advised to discontinue daily valacyclovir; instructed to it only at onset of symptoms for a duration of 3-5 days. Provided instructions to schedule appointment if symptoms develop. Tinea pedis of right foot 12/31/2024 Menopause 12/31/2024 Assessment & Plan (12/31/2024 3:28 PM EST): - Menopausal symptoms including insomnia, hot flashes, vaginal dryness, hair loss, weight loss, headache, arthralgias. - Will order comprehensive laboratory evaluation including lipid panel and other relevant tests. Monitor symptoms; follow up in one month. - She is a status post hysterectomy, declined influenza and COVID vaccines. Multiple thyroid nodules 12/31/2024 Diverticulitis 12/30/2024 Kidney stones 12/30/2024 Osteoarthritis 12/30/2024 Paresthesia and pain of extremity 12/30/2024 Irritable bowel syndrome with diarrhea Assessment & Plan (12/31/2024 3:25 PM EST): - Diarrhea controlled with daily cholestyramine. Previous left-sided hemicolectomy for diverticulosis in December 2010. - Reconsult as needed Seasonal allergies 12/30/2024 Assessment & Plan (12/31/2024 3:25 PM EST): - Allergic symptoms, predominantly in spring, fall, and summer; asthma not presently active. - Continue montelukast as needed for allergy control. Chronic fatigue syndrome with fibromyalgia 05/08 Assessment & Plan (12/31/2024 3:27 PM EST): - Recommended focus on sleep hygiene, balanced activity, hydration, nutrition, and addressing anxiety or depression if present. - Take Tylenol as needed pain, follow-up with me at next visit Encounters Date Type Department Care Team Description 12/30/2024 9:15 AM EST Office Visit [facility] [address] [place] [phone] Shelia Stuart MD Chronic fatigue syndrome with fibromyalgia (Primary Dx); Irritable bowel syndrome with diarrhea; Primary osteoarthritis, unspecified site; Seasonal allergies; Kidney stones; HSV (herpes simplex virus) infection; Multiple thyroid nodules; Menopause; Tinea pedis of right foot; Hair loss 12/30/2024 Travel 12/29/2024 Travel 12/20/2024 Patient Outreach [facility] [address] [place], [place] [phone] Bruno Arechiga MD Transition Of Care (Tcm) (HDF/BELL MAKER scheduled ) from Last 3 Months Immunizations Immunization Administration Dates Next Due Influenza injectable quadrivalent preservative f ree 02/21/2016 Social History Tobacco Use Types Packs/Day Years [...] Don't know 12/29/2024 3: 42 PM EST Last Filed Vital Signs Vital Sign Reading [...] Mass Index 29.24 12/30/2024 9:31 AM EST Plan of Treatment Upcoming Encounters Date Type Department Care Team (Late st Contact Info) Description 03/07/2025 9:45 AM EST Office Visit [facility] [address] [place] [phone] Shelia Stuart MD [address] [place] [address] Health Maintenance Due Date Last Done Comments HIV Screening 1976 SDOH Screening 1976 Tobacco Screening 1988 Family Planning (PISQ) 12/20/1991 Hepatitis C Screening 1994 DTaP/Tdap/Td Vaccines (1 - Tdap) 12/20/1995 Hepatitis B Vaccines (1 of 3 - 19+ 3-dose series) 12/20/1995 Pap Smear 1997 Cervical Cancer Screening 2006 HPV/Cotest 2006 Mammogram 2016 COVID-19 Vaccine (1 - 2023-2 5 season) 2024 Influenza Vaccine (#1) 2024 02/21/2016 Disability Screening 12/29/2025 12/29/2024 Alcohol/Substance Use Screening 12/30/2025 12/30/2024 Depression Screening 12/30/2025 12/30/2024, 12/30/2024 Zoster Vaccines (1 of 2) 2026 RSV Patients and Patients Aged 60 years or older (1 - 1-dose 75+ series) 12/20/2051 HIB [...] patient's age to complete this topic Meningococcal Vaccine Aged Out No hector mindi eligible based on patient's age to complete this topic Pneumococcal Vaccine: Pediatrics (0 to 5 Years) and At-Risk Patients (6 to 49) Years Aged Out No longer eligible b ased on patient's age to complete this topic RSV under 20 months Aged Out No longe r eligible based on patient's age to complete this topic Rotavirus Vaccines Aged Out No longer eligible based on patient's age to complete this topic Insurance [facility] Care Teams Etcher Apprentice Photoengraving Relationship Specialty Start Date End Date Shelia Stuart MD [address] [place] [phone] PCP - General Internal Medicine 12/30/24
--- OUTSIDE RECORDS SUMMARY | 2025-01-04 08:44 | XMS_ITS | Clinical Summary ---
Author Organization [facility] ity Address [address] [place] [address] Care Team Providers Care Excavating Contractor Name Role Phone Rome Kelly MD Primary Care Provider [phone] Surgical History Surgery Date Site/Laterality Comments HYSTERECTOMY [...] Depression Screening 02/25/2024 COVID-19 Vaccine (1 - 2024-2 6 season) 2024 Influenza Vaccine (#1) 2024 RSV [...] age to complete this topic Care Teams Excavating Contractor Relationship Specialty Start Date End Date Rome Kelly MD [address] [place] [phone] PCP - General 12/04/10
--- OUTSIDE RECORDS SUMMARY | 2025-01-04 08:44 | XMS_ITS | Encounter Summary ---
Author Organization [employer] Address [address] [facility] [address] [place] [address] Care Team Providers Care Urgent Care Technician Name Role Phone Shelia Stuart MD Primary Care Provider + Encounter Details Date Type Department Care Team (Latest Contact Info) Description 12/30/2024 Travel Social History Tobacco Use Types Packs/Day Years [...] PM EST documented as of this encounter Functional Status * Over the past 2 weeks, how often have you been bothered by any of the following problems? Question Answer Date of Assessment Author Patient Health Questionnaire -2 Score 2 12/30/2024 12:34 PM EST Combs Amada [place] * Little interest or pleasure in doing things Answer Date of Assessment Author Several days 12/30/2024 12:34 PM EST Combs Amada [place] * Feeling down, depressed, or hopeless Answer Date of Assessment Author Several days 12/30/2024 12:34 PM EST Combs Amada, [place] * Trouble falling or staying asleep, or sleeping too much Answer Date of Assessment Author Several days 12/30/2024 12:34 PM EST Combs, Amada, [place] * Feeling tired or having little energy Answer Date of Assessment Author Several days 12/30/2024 12:34 PM Amada Robertson MA * Poor appetite or overeating Answer [...] Robertson MA documented as of this encounter Plan of Treatment Upcoming Encounters Date Type Department Care Team (Late st Contact Info) Description 03/07/2025 9:45 AM EST Office Visit [facility] [address] [place] [address] Shelia Stuart MD [address] [place] [address] documented as of this encounter Visit Diagnoses Not on filedocumented in this encounter Additional Health Concerns Assessment Noted Time PHQ-9 Depression Total Score: 6 12/31/19 12:34 PM EST documented as of this encounter Care Teams Urgent Care Technician Relationship Specialty Start Date End Date Shelia Stuart MD [address] [place] [phone] PCP - General Internal Medicine 12/30/24 documented as of this encounter
[2025-01-04 11:12] LABS: MANUAL DIFF FLAG NO
[2025-01-04 11:22] LABS: Hematocrit 39.5 % (37.0-47.0); Hemoglobin 13.3 g/dl (12.0-16.0); Imm Gran Abs Auto 0.02 X10*3/uL (0.00-0.03); Imm Gran Pct Auto 0.3 % (0.0-0.4); Lymphocytes Absolute Auto 1.5 X10*3/uL (1.2-4.9); Mean Corpuscular HGB Conc 33.7 g/dl (31.0-35.0); Mean Corpuscular Hemoglobin 30.5 pg (27.0-33.0); Mean Corpuscular Volume 90.6 fL (80.0-98.0); NRBC Abs Auto 0.000 X10*3/uL (0.0-0.012); NRBC Pct Auto 0.0 /100WBC (0.0-0.2); Platelet Count 228 X10*3/uL (160-400); Red Blood Count 4.36 X10*6/uL (4.20-5.50); White Blood Count 6.7 X10*3/uL (4.8-10.8)
[2025-01-04 11:40] LABS: Alanine Aminotransferase 27 U/L (0-31); Albumin Level 4.0 g/dL (3.5-5.0); Alkaline Phosphatase 63 U/L (39-117); Anion Gap 10 (12-20); Aspartate Amino Transferase 23 U/L (5-31); Blood Urea Nitrogen 15 mg/dL (9-16); Calcium 9.0 mg/dL (8.4-10.2); Carbon Dioxide 24 mmol/L (22-29); Chloride 107 mmol/L (96-108); Cholesterol 157 mg/dL (<200); Estimated Glomerular Filt Rate > 60; HDL Cholesterol 52 mg/dL (>40); Potassium 3.9 mmol/L (3.3-5.1); Sodium 137 mmol/L (135-145); Total Protein 6.5 g/dL (6.5-8.0); Triglycerides 161 mg/dL (<150)
[2025-01-04 12:08] LABS: HBS Num1 27.03 mIU/mL (0-7.99); HBc Num1 0.05 S/CO (0.00-0.79); HBsAGNum1 0.46 S/CO (0.00-0.99); Hepatitis A Antibody IgM 0.18 Index (0-0.79); Hepatitis B Surface Antigen Negative (Negative); ~HepC Num1 0.07 S/CO (0.00-0.79); ~Hepatitis A Antibody IgM Nonreactive (Nonreactive); ~Hepatitis B Surface Antibody REACTIVE (Nonreactive); ~Hepatitis C Antibody Nonreactive (Nonreactive)
[2025-01-04 12:09] LABS: Syphilis Screen Nonreactive (Nonreactive)
[2025-01-04 12:28] LABS: Reflex LDLD? No
[2025-01-05 09:23] LABS: Lyme Abs Screen <0.90 index
== END 2025-01-04 08:34 | disposition home or self-care (01) ==
LOC: HO.HHCL 08:33
PROVIDERS: PCP Internal Medicine; Visit Provider Internal Medicine
DX: Z01.84 Encounter for antibody response examination (principal); G93.32 Myalgic encephalomyelitis/chronic fatigue syndrome; M19.91 Primary osteoarthritis, unspecified site; M79.7 Fibromyalgia; L65.9 Nonscarring hair loss, unspecified; N20.0 Calculus of kidney; Z13.6 Encounter for screening for cardiovascular disorders
CPT/HCPCS: 36415; 80053; 80061; 82306; 84443; 85025; 86617; 86618; 86695; 86696; 86704; 86706; 86709; 86780; 86803; 87340

== ENCOUNTER 2025-01-25 10:23 | Outpatient (REF) | payer MEDICARE, MEDICAID, SELFPAY ==
--- NOTE | ~2025-01-25 | US_ITS ---
EXAMINATION: US THYROID CLINICAL INFORMATION: Incidental thyroid nodules on recent CT cervical spine dated December 17, 2024. COMPARISON: Correlated to CT cervical spine dated December 17, 2024. TECHNIQUE: Linear transducer grayscale and color Doppler examination with attention to the region of the thyroid. FINDINGS: SIZE: Measurements of the thyroid lobes and nodules are given in sagittal, anteroposterior and transverse dimensions respectively. Right Thyroid Lobe: 4.5 x 1.4 x 1.6 cm, volume 5.0 mL. Parenchyma: The gland echotexture is normal. Thyroid vascularity is normal. Left Thyroid Lobe: 4.3 x 1.2 x 1.8 cm, volume 5.1 mL. Parenchyma: The gland echotexture is normal. Thyroid vascularity is normal. Isthmus: 0.2 cm in maximum AP dimension. Estimated total number of nodules greater than or equal to 1 cm: 0. Mileage Clerk nodules are described as follows: 1. Location: Lower pole left lobe. Size: 0.3 x 0.2 x 0.2 cm, volume 0.006 mL. Nodule characteristics: Composition: Solid (2). Echogenicity: Hypoechoic (2). Shape: Not taller than wide (0). Margins: Smooth (0). Echogenic Foci: None (0). ACR TI-RADS total points: 4 ACR TI-RADS category: 4 NODES: No lymphadenopathy is seen in the tissue surrounding the thyroid gland. US/US thyroid IMPRESSION: ACR TI RADS category 4, lower pole left lobe nodule. ACR TI-RADS RECOMMENDATION REFERENCE: Ultrasound-guided fine-needle aspiration, followup ultrasound, no further follow up. * TR1 (0 point) and TR2 (2 points): No FNA or follow up. * TR3 (3 points): FNA if more than or equal to 2.5 cm in maximum dimension, followup ultrasound in 1, 3 and 5 years if 1.5 to 2.4 cm in maximum dimension. * TR4 (4-6 points): FNA if more than or equal to 1.5 cm in maximum dimension, followup ultrasound in 1, 2, 3 and 5 years if 1 to 1.4 cm in maximum dimension. * TR5 (more than or equal to 7 points): FNA if more than or equal to 1 cm in maximum dimension, followup ultrasound every year for 5 years if 0.5 to 0.9 cm in maximum dimension. * TR3, TR4 or TR5 nodules that are below the size threshold for followup receive no follow up. Electronically signed by: Rico Trejo MD 01/25/2025 12:17 PM TIFFANI STRINGER
--- OUTSIDE RECORDS SUMMARY | 2025-01-25 11:53 | XMS_ITS | Clinical Summary ---
Author Organization [employer] [facility] ity Address [address] [place] [address] Care Team Providers Care Water Treatment Plant Repairer Name Role Phone Rome Kelly MD Primary Care Provider [phone] Surgical History Surgery Date Site/Laterality Comments HYSTERECTOMY [...] age to complete this topic Care Teams Water Treatment Plant Repairer Relationship Specialty Start Date End Date Rome Kelly MD [address] [place] [phone] PCP - General 12/04/10
--- OUTSIDE RECORDS SUMMARY | 2025-01-25 11:53 | XMS_ITS | Clinical Summary ---
Author Organization [employer] Address [address] [facility] [address] [place] [address] Care Team Providers Care Assembler Dc Field Yoke Name Role Phone Shelia Stuart MD Primary [...] Description 12/30/2024 9:15 AM EST Office Visit [facility] [address] [place] [address] Shelia Stuart MD Chronic fatigue syndrome with fibromyalgia (Primary Dx); Irritable bowel syndrome with diarrhea; Primary osteoarthritis, unspecified site; Seasonal allergies; Kidney stones; HSV (herpes simplex virus) infection; Multiple thyroid nodules; Menopause; Tinea pedis of right foot; Hair loss 12/30/2024 Travel 12/29/2024 Travel 12/20/2024 Patient Outreach [facility] [address] [place], [place] [phone] Bruno Arechiga MD Transition Of Care (Tcm) (HDF/ASSAULT BOAT [place] scheduled ) from Last 3 Months Immunizations [...] Description 03/07/2025 9:45 AM EST Office Visit [facility] [address] [place] [phone] Shelia Stuart MD [address] [place] [address] Health Maintenance Due Date Last Done Comments HIV Screening 1976 SDOH Screening 1976 Tobacco Screening 1988 Family Planning (PISQ) 12/20/1991 DTaP/Tdap/Td Vaccines (1 - Tdap) 12/20/1995 Hepatitis B Vaccines (1 of 3 - 19+ 3-dose series) 12/20/1995 Pap Smear 1997 Cervical Cancer Screening 2006 HPV/Cotest 2006 Mammogram 2016 COVID-19 Vaccine ( - 2024-2 6 season) 2024 Influenza Vaccine (#1) 2024 02/21/2016 Disability Screening 12/29/2025 12/29/2024 Alcohol/Substance Use Screening 12/30/2025 12/30/2024 Depression Screening 12/30/2025 12/30/2024, 12/30/2024 Zoster Vaccines (1 of 2) 2026 RSV Patients and Patients Aged 60 years or older (1 - 1-dose 75+ series) 12/20/2051 Hepatitis C Screening Completed 01/04/2025 HIB Vaccines Aged Out No longer eligi [...] on patient's age to complete this topic Procedures Procedure Name Priority Date/Time Associated Diagnosis Comments HSV 1/2 IGG,TYPE SPECIFIC AB Routine 01/04/2025 8:38 AM EST Hair loss LYME DISEASE AB W/REFL TO BLOT (IGG, IGM) Routine 01/04/2025 8:38 AM EST Hair loss CBC WITH AUTO DIFFERENTIAL Routine 01/04/2025 8:38 AM EST Kidney stones Primary osteoarthritis, unspecified site COMPREHENSIVE METABOLIC PANEL Routine 01/04/2025 8:38 AM EST Primary osteoarthritis, unspecified site VITAMIN D,25-OH,TOTAL,IA Routine 01/04/2025 8:38 AM EST Primary osteoarthritis, unspecified site TSH W/REFLEX TO FT4 Routine 01/04/2025 8 :38 AM EST Primary osteoarthritis, unspecified site Chronic fatigue syndrome with fibromyalgia Hair loss SYPHILIS SCREEN Routine 01/04/2025 8:38 AM EST Primary osteoarthritis, unspecified site Chronic fatigue syndrome with fibromyalgia HEPATITIS PANEL, GENERAL Routine 01/04/2025 8:38 AM EST Primary osteoarthritis, unspecified site LIPID PANEL WITH REFLEX TO DIRECT LDL Routine 01/04/2025 8:38 AM EST Chronic fatigue syndrome with fibromyalgia from Last 3 Months Results * Syphilis Screen (01/04/2025 8:38 AM EST) Syphilis Screen Nonreactive Nonreactive [facility] Blood 01/04/2025 8:38 AM EST 01/04/2025 11:10 AM EST us Shelia Stuart MD LAB BLOOD ORDERABLES Fin al Result [facility] [address] [place] [phone] * Vitamin D, 25-Hydroxy, Total, Immunoassay (01/04/2025 8:38 AM EST) Vitamin D 25-OH Total 31.6 >30 ng/mL [facility] Comment: Health Based Reference Values*< 20 ng/mL Xeyzatwwi76-47 ng/mL Insufficient> 30 ng/mL Sufficient*Essence HERRERA. N Engl J Med. 2007;357:266-280There is no well-established upper level of normal vitamin Dlevels. Some laboratories use 50 ng/mL as an upper limit ofnormal. However, toxicity is patient-dependent and may occurat any level. Careful correlation with the patient'spresentation is necessary and, if there is concern forvitamin D toxicity, treatment should be consideredirrespective of the serum level.Care must be taken in interpreting Vitamin D results fromdifferent laboratories and methodologies. Published datademonstrated that results from patients undergoinghemodialysis may show a negative bias when tested withvarious automated 25-OH vitamin D assays when compared toLC-MS/MS.When testing samples from patients whose predominant form ofVitamin D is Vitamin D2, such as patients receiving VitaminD2 supplementation, results that are subtherapeutic shouldbe confirmed with another method such as LC-MS/MS. Blood 01/04/2025 8:38 AM EST 01/04/2025 11:10 AM EST Shelia Stuart MD LAB BLOOD ORDERABLES Fin al Result Performing Organization Address [facility]/ZIP Co de Phone Number [facility] [address] [place] [phone] * TSH with Reflex to Free T4 (01/04/2025 8:38 AM EST) TSH reflex Free T4 1.15 0.32 - 4.0 uIU/mL [facility] Blood 01/04/2025 8:38 AM EST 01/04/2025 11:10 AM EST Shelia Stuart MD LAB BLOOD ORDERABLES Fin al Result Performing Organization Address [facility] Co de Phone Number [facility] [address] [place] [phone] * Lyme Disease Ab with Reflex to Blot (IgG, IgM) (01/04/2025 8:38 AM EST) Lyme Antibody Screen <0.90 index [facility] Comment:Index Interpretation ----- < 0.90 Negative 0.90-1.09 Equivocal > 1.09 PositiveAs recommended by the Food and Drug Administration(FDA), all samples with positive or equivocalresults in a Borrelia burgdorferi antibody screenwill be tested using a blot method. Positive orequivocal screening test results should not beinterpreted as truly positive until verified as suchusing a supplemental assay (e.g., B. burgdorferi blot).The screening test and/or blot for B. burgdorferiantibodies may be falsely negative in early stagesof Lyme disease, including the period when erythemamigrans is apparent.THIS TEST WAS PERFORMED AT:[email or web address] [place] [phone] KAUR MD Lyme Blot TNP [facility] 01/04/2025 8:38 AM EST 01/04/2025 11:10 AM EST us Shelia Stuart MD LAB BLOOD ORDERABLES Fin al Result [facility] [address] [place] [phone] * (ABNORMAL) Lipid Panel with Reflex to Direct LDL (01/04/2025 8:38 AM EST) Triglycerides 161(H) <150 mg/dL [facility] Comment:Desirable Triglyceri de: less than 150 mg/dLBorderline High Triglyceride 150-199 mg/dLHigh Triglyceride: 200-499 mg/dLVery High Triglyceride: greater than or equal to 5OO mg/dL Cholesterol 157 <200 mg/dL [facility] Comment:Desirable Cholestero l: less than 200 mg/dLBorderline High Cholesterol: 200-239 mg/dLHigh Cholesterol: greater than 239 mg/dL LDL Cholesterol Calculated 73 <100 mg/dL [facility] Comment:Desirable LDL: less than 100 mg/dLNear Optimal/Above Optimal LDL: 110- 129 mg/dLBorderline High LDL: 130-159 mg/dLHigh LDL: 160-189 mg/dLVery High LDL: greater than or equal to 190 mg/dL HDL Cholesterol 52 >40 mg/dL [facility] Comment:Desirable HDL: great er than 40 mg/dL Note: This HDL assay may give artificially low results in patients with liver disease. Blood 01/04/2025 8:38 AM EST 01/04/2025 11:10 AM EST Shelia Stuart MD LAB BLOOD ORDERABLES Fin al Result Performing Organization Address [facility] Co de Phone Number [facility] [address] [place] [phone] * Hepatitis Panel, General (01/04/2025 8:38 AM EST) Hepatitis A IgM Nonreactive Nonreactive [facility] Comment:IgM antibodies to CATALAN V not detected; does not exclude earlyacute or recovered HAV infection. ~Hepatitis B Surface Antibody REACTIVE Nonreactive [facility] Comment:REACTIVE: > 11.99 mI U/mL Hepatitis B Core Antibody Nonreactive Nonreactive [facility] Hepatitis C Antibody Nonreactive Nonreactive [facility] Comment:Antibodies to HCV no t detected; does not exclude early acuteHCV infection. Hepatitis B Surface Ag Negative Negative [facility] Blood 01/04/2025 8:38 AM EST 01/04/2025 11:10 AM EST Shelia Stuart MD LAB BLOOD ORDERABLES Fin al Result Performing Organization Address [facility] de Phone Number [facility] [address] [place] [phone] * (ABNORMAL) CBC auto differential (01/04/2025 8:38 AM EST) Pathologist [facility] White Blood Count 6.7 4.8 - 10.8 X10*3/uL [facility] Red Blood Count 4.36 4.20 - 5.50 X10*6/uL [facility] Hemoglobin 13.3 12.0 - 16.0 g/dl [facility] Hematocrit 39.5 37.0 - 47.0 % [facility] Mean Corpuscular Volume 90.6 80.0 - 98.0 fL [facility] Mean Corpuscular Hemoglobin 30.5 27.0 - 33.0 pg [facility] Mean Corpuscular HGB Conc 33.7 31.0 - 35.0 g/dl [facility] Red Cell Distribution Width 13.0 11.0 - 16.0 % [facility] Platelet Count 228 160 - 400 X10*3/uL [facility] Mean Platelet Volume 12.4(H) 9.4 - 12.3 fL [facility] Neutrophils Percent Auto 67.2 45 - 73 % [facility] Imm Gran Pct Auto 0.3 0.0 - 0.4 % [facility] Lymphocytes Percent Auto 22.9 20 - 40 % [facility] Monocytes Percent Auto 6.7 2 - 11 % [facility] Eosinophils Percent Auto 2.5 0 - 4 % [facility] Basophils Percent Auto 0.4 0 - 2 % [facility] NRBC Pct Auto 0.0 0.0 - 0.2 /100WBC [facility] Neutrophils Absolute Auto 4.5 2.0 - 8.3 x10*3/uL [facility] Imm Gran Abs Auto 0.02 0.00 - 0.03 X10*3/uL [facility] Lymphocytes Absolute Auto 1.5 1.2 - 4.9 X10*3/uL [facility] Monocytes Absolute Auto 0.5 0.1 - 1.2 X10*3/uL [facility] Eosinophils Absolute Auto 0.2 0.0 - 0.4 X10*3/uL [facility] Basophils Absolute Auto 0.0 0.0 - 0.2 X10*3/uL [facility] NRBC Abs Auto 0.000 0.0 - 0.012 X10*3/uL [facility] Blood Venous blood specimen / Unknown 01/04/2025 8:38 AM EST 01/04/2025 11:10 AM EST us Shelia Stuart MD LAB BLOOD ORDERABLES Fin al Result [facility] [address] [place], [place] [phone] * (ABNORMAL) Herpes Simplex Virus 1 and 2 (IgG), Type-Specific Antibodies (01/04/2025 8:38 AM EST) Herpes Simplex Type 1 IgG 17.10(A) index [facility] Herpes Simplex Type 2 IgG <0.90 index [facility] Comment: Index Interpretation ----- <0.90 Negative 0.90-1.09 Equivocal >1.09 PositiveThis assay utilizes recombinant type-specific antigensto differentiate HSV-1 from HSV-2 infections. Apositive result cannot distinguish between recent andpast infection. If results are negative or equivocal,consider repeat testing in 4-12 weeks with a newspecimen. The performance characteristics of the assayhave not been established for pediatric populations,immunocompromised patients, or screening.Positive HSV-2 IgG samples with index values between1.10-6.00 will reflex to the HSV-2 IgG inhibition test.See Note 1Note 1For additional information, please refer [email or web address]/faq/[email or web address](This link is being provided for informational/educational purposes only.)THIS TEST WAS PERFORMED AT:[email or web address] [place] [phone] KAUR MD Blood Venous blood specimen / Unknown 01/04/2025 8:38 AM EST 01/04/2025 11:10 AM EST Shelia Stuart MD LAB BLOOD ORDERABLES Fin al Result [facility] [address] [place] [phone] * (ABNORMAL) Comprehensive Metabolic Panel (01/04/2025 8:38 AM EST) Sodium 137 135 - 145 mmol/L [facility] Potassium 3.9 3.3 - 5.1 mmol/L [facility] Chloride 107 96 - 108 mmol/L [facility] Carbon Dioxide 24 22 - 29 mmol/L [facility] Anion Gap 10(L) 12 - 20 [facility] Urea Nitrogen (BUN) 15 9 - 16 mg/dL [facility] Creatinine, Serum 0.56 0.5 - 1.4 mg/dL [facility] Estimated Glomerular Filt Rate >60 [facility] Comment:Chronic Kidney Disea se: Estimated GFR < 60 mL/min/1.90n2Hnbufc Kidney Disease: Estimated GFR < 15 mL/min/1.73m2 Glucose 93 60 - 115 mg/dL [facility] Calcium 9.0 8.4 - 10.2 mg/dL [facility] Bilirubin, Total 0.5 0.0 - 1.0 mg/dL [facility] Aspartate Amino Transferase 23 5 - 31 U/L [facility] Alanine Aminotransferase 27 0 - 31 U/L [facility] Total Protein 6.5 6.5 - 8.0 g/dL [facility] Albumin Level 4.0 3.5 - 5.0 g/dL [facility] Alkaline Phosphatase 63 39 - 117 U/L [facility] Blood Venous blood specimen / Unknown 01/04/2025 8:38 AM EST 01/04/2025 11:10 AM EST Shelia Stuart MD LAB BLOOD ORDERABLES Fin al Result Performing Organization Address [facility] Co de Phone Number [facility] [address] [place] [phone] [phone] from Last 3 Months Insurance [facility] [employer]AND[employer] [place] [phone] Care Teams Assembler Dc Field Yoke Relationship Specialty Start Date End Date Shelia Stuart MD [address] [place] [phone] PCP - General Internal Medicine 12/30/24
--- OUTSIDE RECORDS SUMMARY | 2025-01-25 11:53 | XMS_ITS | Clinical Summary ---
Author Organization [employer] [facility] Address [address] [place] [address] Care Team Providers Care [place] Consultant Name Role Phone Unavailable Primary Care Provider [...]
== END 2025-01-25 10:24 | disposition home or self-care (01) ==
LOC: HO.US 10:23
PROVIDERS: PCP Internal Medicine; Visit Provider Internal Medicine
DX: E04.2 Nontoxic multinodular goiter (principal)
CPT/HCPCS: 76536

== ENCOUNTER → 2025-01-25 10:25 | Outpatient (BNV) | payer MEDICARE, MEDICAID, SELFPAY | PROVIDERS: PCP Internal Medicine; Visit Provider Radiology Diagnostic Radiology | DX: E04.2 Nontoxic multinodular goiter (principal) | CPT/HCPCS: 76536 ==